=== PATIENT | male | born 1940 | race Caucasian/White ===

== ENCOUNTER 2017-05-11 08:18 | Emergency (ER) | payer MEDICARE, SELFPAY ==
[2017-05-11 08:43] VITALS: BP 120/82; PULSE 89; RESP 16; TEMP 36.8; O2SAT 97; BMI 24.3
--- NOTE | 2017-05-11 09:47 | HMH.EDURI ---
ED Disposition Clinical Impression: Influenza Disposition: Home, Self-Care Condition on Discharge: Good Instructions: DI for Acute Bronchitis Additional Instructions: fluids and see pcp for follow up Prescriptions: Oseltamivir Phosphate [Tamiflu 75mg Capsule] 75 mg PO BID #10 cap Referrals: Darren Vega MD [Primary Care Provider] - - Critical Care Critical Care Time: No Attestation: On 05/11/17, the high probability of a clinically significant, sudden or life threatening deterioration of the following system(s) required my full and direct attention, intervention and personal management. The time I documented below is in addition to time spent performing reported procedures but includes the following listed in this critical care notation. Medical Decision Making - Medical Records Medical records reviewed: Yes: I reviewed the patient's medical records. Vital Signs: 05/11/17 08:43 Temperature 98.2 F Temperature Source Oral Pulse Rate [Right Radial] 89 Respiratory Rate 16 Blood Pressure [Left Arm] 120/82 Blood Pressure Mean [Left Arm] 94 Blood Pressure Source [Left Arm] Automatic Cuff Blood Pressure Position [Left Arm] Sitting 02 Sat by Pulse Oximetry 97 Oxygen Delivery Method Room Air - Lab Data Lab results reviewed: Yes: I reviewed the patient's lab results. Lab Results 05/11/17 08:55: Influenza Type A Ag Negative, Influenza Type B Ag Negative - Sathya Inquiry Pt receiving controlled substance: No URI/Sore Throat HPI - General Chief Complaint: Upper Respiratory Infection Stated Complaint: Poss Flu Time Seen by Provider: 05/11/17 09:47 Mode of Arrival: Ambulatory Source of Information: Patient, Spouse, Medical Record Limitations: No Limitations Description of Symptoms (Recalled from ER Triage Doc. by RN): HEAD CONGESTION, A LITTLE COUGHING - History of Present Illness HPI Narrative: over the last day with uri sx and cough Complaint: cough Onset (ago): day(s) Severity: moderate Able to tolerate fluids by mouth: Yes Context: sick contacts - Related Data Previous Rx's Medication Instructions Recorded Oseltamivir Phosphate [Tamiflu 75 mg PO BID #10 cap 05/11/17 75mg Capsule] Allergies Allergy/AdvReac Type Severity Reaction Status Date / Time cetirizine [From ZYRTEC] Allergy Unknown Unverified 03/25/17 14:28 erythromycin base Allergy Unknown Unverified 03/25/17 14:28 Penicillins Allergy Unknown Unverified 03/25/17 14:28 BRYAN INHIBITORS Allergy Unknown Uncoded 03/25/17 14:28 LEATHER & OTHER WATCH BANDS Allergy Unknown Uncoded 03/25/17 14:28 [facility] History I have reviewed the patient's past medical history: Yes Medical History: Denies:: Cancer, Diabetes Mellitus Type 1, Diabetes Mellitus Type 2, Internal Pacemaker, MRSA Other Surgeries: No: Pacemaker Amputation: No Fractures: No - *Social History Smoking Status: Former smoker Tobacco Type: smokeless tobacco Alcohol Intake: never - Psychiatric History Expresses thoughts of harming self/others: None Suicide Plan Description: No Plan ROS Obtained: Yes All systems reviewed & no additional complaints - Constitutional Constitutional: Reports fever(s) - Eyes Eyes: Denies change in vision - ENT Ears, Nose, Mouth, and Throat: Reports sore throat - Cardiovascular Cardiovascular: Denies chest pain at rest - Respiratory Respiratory: Yes cough, No coughing up blood - Gastrointestinal Gastrointestingal: Reports: nausea - Musculoskeletal Musculoskeletal: Reports joint pain, Denies joint swelling - Integumentary/Breasts Skin/Breast: Denies rash - Neurologic Neurologic: Denies focal weakness, Denies seizure-like activity Physical Exam - General General appearance: alert, in no apparent distress - Head Head exam: normocephalic - Eye Eye exam: Present: PERRL, EOMI - ENT ENT exam: Present: mucous membranes dry - Neck Neck exam: Present: trachea midline - Res
--- NOTE | 2017-05-11 09:50 | ED_ITS ---
ED Disposition Clinical Impression: Influenza Disposition: Home, Self-Care Condition on Discharge: Good Instructions: DI for Acute Bronchitis Additional Instructions: fluids and see pcp for follow up Prescriptions: Oseltamivir Phosphate [Tamiflu 75mg Capsule] 75 mg PO BID #10 cap Referrals: Darren Vega MD [Primary Care Provider] - - Critical Care Critical Care Time: No Attestation: On 05/11/17, the high probability of a clinically significant, sudden or life threatening deterioration of the following system(s) required my full and direct attention, intervention and personal management. The time I documented below is in addition to time spent performing reported procedures but includes the following listed in this critical care notation. Medical Decision Making - Medical Records Medical records reviewed: Yes: I reviewed the patient's medical records. Vital Signs: 05/11/17 08:43 Temperature 98.2 F Temperature Source Oral Pulse Rate [Right Radial] 89 Respiratory Rate 16 Blood Pressure [Left Arm] 120/82 Blood Pressure Mean [Left Arm] 94 Blood Pressure Source [Left Arm] Automatic Cuff Blood Pressure Position [Left Arm] Sitting 02 Sat by Pulse Oximetry 97 Oxygen Delivery Method Room Air - Lab Data Lab results reviewed: Yes: I reviewed the patient's lab results. Lab Results 05/11/17 08:55: Influenza Type A Ag Negative, Influenza Type B Ag Negative - Sathya Inquiry Pt receiving controlled substance: No URI/Sore Throat HPI - General Chief Complaint: Upper Respiratory Infection Stated Complaint: Poss Flu Time Seen by Provider: 05/11/17 09:47 Mode of Arrival: Ambulatory Source of Information: Patient, Spouse, Medical Record Limitations: No Limitations Description of Symptoms (Recalled from ER Triage Doc. by RN): HEAD CONGESTION, A LITTLE COUGHING - History of Present Illness HPI Narrative: over the last day with uri sx and cough Complaint: cough Onset (ago): day(s) Severity: moderate Able to tolerate fluids by mouth: Yes Context: sick contacts - Related Data Previous Rx's Medication Instructions Recorded Oseltamivir Phosphate [Tamiflu 75 mg PO BID #10 cap 05/11/17 75mg Capsule] Allergies Allergy/AdvReac Type Severity Reaction Status Date / Time cetirizine [From ZYRTEC] Allergy Unknown Unverified 03/25/17 14:28 erythromycin base Allergy Unknown Unverified 03/25/17 14:28 Penicillins Allergy Unknown Unverified 03/25/17 14:28 BRYAN INHIBITORS Allergy Unknown Uncoded 03/25/17 14:28 LEATHER & OTHER WATCH BANDS Allergy Unknown Uncoded 03/25/17 14:28 [facility] History I have reviewed the patient's past medical history: Yes Medical History: Denies:: Cancer, Diabetes Mellitus Type 1, Diabetes Mellitus Type 2, Internal Pacemaker, MRSA Other Surgeries: No: Pacemaker Amputation: No Fractures: No - *Social History Smoking Status: Former smoker Tobacco Type: smokeless tobacco Alcohol Intake: never - Psychiatric History Expresses thoughts of harming self/others: None Suicide Plan Description: No Plan ROS Obtained: Yes All systems reviewed & no additional complaints - Constitutional Constitutional: Reports fever(s) - Eyes Eyes: Denies change in vision - ENT Ears, Nose, Mouth, and
[2017-05-11 09:54] VITALS: BP 120/82; PULSE 89; RESP 16; TEMP 36.8; O2SAT 97
== END 2017-05-11 10:04 | disposition home or self-care (01) ==
PROVIDERS: Emergency Provider Emergency Medicine; Family Provider Family Medicine; PCP Family Medicine
DX: J11.1 Influenza due to unidentified influenza virus with other respiratory manifestations (principal); I48.91 Unspecified atrial fibrillation; I10 Essential (primary) hypertension; J44.9 Chronic obstructive pulmonary disease, unspecified; Z88.0 Allergy status to penicillin; Z88.1 Allergy status to other antibiotic agents; Z88.8 Allergy status to other drugs, medicaments and biological substances; Z87.891 Personal history of nicotine dependence
CPT/HCPCS: 87275; 87276; 99282

== ENCOUNTER → 2017-08-01 10:02 | Outpatient (CLI) | payer MEDICARE, SELFPAY ==
[2017-08-01 10:33] LABS: Basophils % 0.3 % (0.1-2.0); Eosinophils # 0.1 K/mm3 (0.0-0.4); Eosinophils % 1.5 % (0.1-12.0); Hematocrit 40.6 % (42.0-52.0); Hemoglobin 13.4 g/dL (14.1-18.0); Lymphocytes # 1.3 K/mm3 (0.7-4.5); Lymphocytes % 14.7 K/mm3 (10-50); Mean Corpuscular HGB Conc 33.1 g/dL (31.8-35.4); Mean Corpuscular Hemoglobin 31.8 pg (27.0-31.2); Mean Corpuscular Volume 96.2 fl (80-94); Mean Platelet Volume 8.9 fl (7.4-10.4); Monocytes # 0.7 K/mm3 (0.1-1.0); Monocytes % 7.7 % (1.7-9.3); Neutrophils # 6.9 K/mm3 (1.8-7.8); Neutrophils % 75.8 % (37.0-80.0); Platelet Count 166 K/mm3 (142-424); Red Blood Count 4.22 M/mm3 (4.60-6.20); Red Cell Distribution Width 15.2 % (11.5-17.5)
[2017-08-01 11:17] LABS: Hemoglobin A1C 5.8 % (0.0-7.0)
[2017-08-01 12:35] LABS: Alanine Aminotransferase 16 U/L (12-78); Albumin/Globulin Ratio 1.2 (1.1-1.8); Alkaline Phosphatase 84 U/L (46-116); Aspartate Amino Transferase 18 U/L (15-37); Bilirubin,Total 1.3 mg/dL (0.2-1.0); Blood Urea Nitrogen 15 mg/dL (7-18); Calcium 9.5 mg/dL (8.5-10.1); Carbon Dioxide 36 mmol/L (21.0-32.0); Chloride 99 mmol/L (98-107); Chol/HDL Ratio 2.2 (1-3.5); Cholesterol 114 mg/dL (140-200); Creatinine,Serum 1.16 mg/dL (0.70-1.30); Estimated Glomerular Filt Rate 61 ml/min (>60); GFR (African American) 74 ML/MIN (>60); Globulin 3.4 gm/dl (1.3-3.2); Glucose 103 mg/dL (74-106); HDL Cholesterol 51 mg/dL (27-67); Iron 63 ug/dl (28-170); LDL Cholesterol 55 mg/dL (0-130); Magnesium 1.9 mg/dL (1.4-2.2); Prostate Specific Ag, Diagnost 0.52 ng/mL (0.0-4.0); Sodium 140 mmol/L (136-145); Thyroid Stimulating Hormone 1.05 uIU/ml (0.358-3.740); Total Protein,Serum 7.4 gm/dL (6.4-8.2); Triglycerides 40 mg/dL (30-200); VLDL Cholesterol 8 mg/dL (0-40)
[2017-08-02 20:14] LABS: Folate 13.3 ng/mL (>3.0); Vitamin B12 526 pg/mL (232-1245)
== END ==
PROVIDERS: Visit Provider Family Medicine
DX: R63.4 Abnormal weight loss (principal); I48.2 Chronic atrial fibrillation; I10 Essential (primary) hypertension; J44.9 Chronic obstructive pulmonary disease, unspecified; E78.5 Hyperlipidemia, unspecified; D50.9 Iron deficiency anemia, unspecified; Z79.899 Other long term (current) drug therapy
CPT/HCPCS: 36415; 80053; 80061; 82607; 82746; 83036; 83540; 83735; 84153; 84443; 85025

== ENCOUNTER → 2017-09-24 13:35 | Outpatient (CLI) | payer MEDICARE, SELFPAY ==
[2017-09-24 14:05] LABS: Blood Urea Nitrogen 70 mg/dL (7-18); Estimated Glomerular Filt Rate 20 ml/min (>60); GFR (African American) 24 ML/MIN (>60)
--- NOTE | 2017-09-24 14:33 | CT_ITS ---
CT chest wo con HISTORY: Follow-up pulmonary nodule/emphysema and fibrosis ITS.REASON: PULMONARY NODULE ORDERING PHYSICIAN: Darren Vega MD PATIENT AGE: 76 years COMPARISON: 03/07/2017 Technique: Axial images obtained. Sagittal and coronal reformatted images are also generated and reviewed. All CT scans at the facility use one or more dose reduction, viz: automated exposure control; ma/kV adjustment per patient size (including targeted exams where dose is matched to indication; i.e. head); or iterative reconstruction technique. FINDINGS: No mediastinal or hilar mass or adenopathy. There are coronary artery calcifications. Normal heart size. No evidence of pericardial effusion. Severe centrilobular emphysematous changes with scattered areas of pulmonary fibrosis mild bronchial thickening. Scattered calcified granulomas are present. The previously described 6 mm nodule in right upper lobe is not identified on today's exam. There are mild fibrotic changes in the right upper lobe anteriorly. This was likely due to an area of postinflammatory change. There is a 3 mm nodule right upper lobe posteriorly not readily apparent on the previous study. 4 mm noncalcified nodule present in the left lower lobe unchanged. Fibrotic changes are present in the lingula. Degenerative changes thoracic spine. There is bilateral gynecomastia. 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 IMPRESSION: 1. Centrilobular emphysema with scattered areas of pulmonary fibrosis. 2. Previously noted 6 mm nodule in the right upper lobe no longer apparent and was likely postinflammatory. There is a new 3 mm nodule right upper lobe superiorly which is nonspecific. Suggest 6-12 month follow-up to confirm stability 3. Cholelithiasis, celiac artery aneurysm
== END ==
PROVIDERS: Family Provider Family Medicine; PCP Family Medicine; Visit Provider Family Medicine
DX: R91.1 Solitary pulmonary nodule (principal)
CPT/HCPCS: 36415; 71250; 82565; 84520

== ENCOUNTER 2017-09-25 12:23 | Inpatient (IN) ==
--- NOTE | 2017-09-25 12:33 | Emergency Department Note ---
ED Disposition Clinical Impression: Hyponatremia, Hypokalemia, Fall Skin tear of left hand without complication Qualifiers: Encounter type: initial encounter Qualified Code(s): S61.412A - Laceration without foreign body of left hand, initial encounter Disposition: Admitted as Observation Condition on Discharge: Good Referrals: Darren Vega MD [Primary Care Provider] - - Critical Care Critical Care Time: No Attestation: On 09/25/17, the high probability of a clinically significant, sudden or life threatening deterioration of the following system(s) required my full and direct attention, intervention and personal management. The time I documented below is in addition to time spent performing reported procedures but includes the following listed in this critical care notation. Medical Decision Making - Sathya Inquiry Pt receiving controlled substance: No Vital Signs: 09/25/17 12:14 Pulse Rate [Right Radial] 90 Respiratory Rate 16 Blood Pressure [Right Arm] 122/69 Blood Pressure Mean [Right Arm] 86 Blood Pressure Source [Right Arm] Automatic Cuff Blood Pressure Position [Right Arm] Sitting 02 Sat by Pulse Oximetry 96 Oxygen Delivery Method Room Air - Lab Data Lab results reviewed: Yes: I reviewed the patient's lab results. Lab Results 09/25/17 12:45: WBC 14.5 H, RBC 4.28 L, Hgb 12.8 L, Hct 38.4 L, MCV 89.7, MCH 30.0, MCHC 33.4, RDW 14.5, Plt Count 226, MPV 10.2, Neut % (Auto) 81.1 H, Lymph % (Auto) 8.4 L, [place] % (Auto) 9.4 H, Eos % (Auto) 1.0, Baso % (Auto) 0.1, Neut # (Auto) 11.8 H, Lymph # (Auto) 1.2, [place] # (Auto) 1.4 H, Eos # (Auto) 0.2, Baso # (Auto) 0.0 09/25/17 12:45: Sodium 115 L, Potassium 2.8 L*, Chloride 71 L, Carbon Dioxide 39 H, Anion Gap 7.8, BUN 75 H, Creatinine 2.90 H, Estimated Creat Clear 22, Estimated GFR 21 L, Est GFR ( Amer) 26 L, Glucose 136 H, Calcium 9.6, Troponin I < 0.02 Result diagrams: 09/25/17 12:45 06/21/18 12:45 Orders (Tests/Meds): ED MEDICATIONS Generic Name Dose Route Start Last Admin Trade Name Freq PRN Reason Stop Dose Admin Lactated Ringer's 1,000 mls @ 75 mls/hr 09/25/17 13:45 09/25/17 13:42 Lactated Ringer's 1000 Ml Bag IV 10/25/17 13:44 75 mls/hr .[id number] MELYSSA Administration Discontinued Medications Generic Name Dose Route Start Last Admin Trade Name Freq PRN Reason Stop Dose Admin Tetanus/Reduced Diphtheria/Acell Pertussis 0.5 ml 09/25/17 12:37 09/25/17 13: 38 Adacel Tdap 0.5ml Syringe IM 09/25/17 12:38 0.5 ml .ONCE ONE Administration ORDERS Category Date Time Status CT abdomen pelvis wo con Stat Cat Scan 09/25/17 13:19 Stop Req XR chest portable Stat Exams 09/25/17 12:34 Taken 12-lead EKG Request [ECG Request by /Edis] Stat Y 09/25/17 12:34 Ordered - Physician Consults Physician Consulted: Dr. Todd senior research consultant for PCP Dr. Vega, who is on vacation Time: 13:50 Reason -: Admission Comment/Response: admit on KCl run Fall HPI - General Chief Complaint: Fall Stated Complaint: fall Time Seen by Provider: 09/25/17 12:30 Mode of Arrival: EMS Limitations: No Limitations Description of Symptoms (Recalled from ER Triage Doc. by RN): fall - History of Present Illness HPI Narrative: Has felt dehydrated and lightheaded for the last month since being placed on a new diuretic. Tends to be a little lightheaded when standing or walking baseline. Stood up today and fell, neg LOC, sustained skin tear to left hand, neg LOC, neg chest pain; hx Afib, EMS states a few runs of PVC's on route but not symptomatic. He denies headache, denies neck or back pain, no acute neurological sx today. No fever or vomiting. MD complaint: fall Onset (ago): minute(s) Fall from: walking Fall witnessed: no Place fall occurred: home Loss of consciousness: none Prolonged down time: no Symptoms prior to fall: lightheadedness Location of injury - extremities: Left: hand (skin tear, minor) Severity: mild Associated symptoms (after fall): other (lightheaded for several weeks) - Related Data Home Medications Medication Instructions Recorded Confirmed Allopurinol [Allopurinol 100mg 100 mg PO DAILY 09/25/17 09/25/17 tablet] Aspirin [Adult Aspirin] 81 mg PO DAILY 09/25/17 09/25/17 Atorvastatin Calcium [Atorvastatin 10 mg PO DAILY 09/25/17 09/25/17 10mg Tab] Carvedilol [Carvedilol 25mg Tab] 25 mg PO BID 09/25/17 09/25/17 Furosemide [Furosemide 40MG tAB] 40 mg PO BID 09/25/17 09/25/17 Oxybutynin Chloride [Oxybutynin 5 mg PO DAILY 09/25/17 09/25/17 Chloride ER] Rivaroxaban [Xarelto 15mg tablet] 15 mg PO DAILY 09/25/17 09/25/17 Spironolactone 25 mg PO BID 09/25/17 09/25/17 Tiotropium [place] [Spiriva 18 mcg INHALATION DAILY 09/25/17 09/25/17 18mcg/puff inhaler] Allergies Allergy/AdvReac Type Severity Reaction Status Date / Time cetirizine [From ZYRTEC] Allergy Unknown Verified 09/25/17 13:36 erythromycin base Allergy Unknown Verified 09/25/17 13:36 Penicillins Allergy Unknown Verified 09/25/17 13:36 BRYAN INHIBITORS Allergy Unknown Uncoded 03/25/17 14:28 LEATHER & OTHER WATCH BANDS Allergy Unknown Uncoded 03/25/17 14:28 [facility] History I have reviewed the patient's past medical history: Yes Medical History: Reports:: Arrhythmia Denies:: Cancer, Diabetes Mellitus Type 1, Diabetes Mellitus Type 2, Internal Pacemaker, MRSA Other Surgeries: No: Pacemaker Amputation: No Fractures: No - Social History Educational Level: Completed High School Smoking Status: Former smoker Tobacco Type: smokeless tobacco Alcohol Intake: never - Psychiatric History Expresses thoughts of harming self/others: None Suicide Plan Description: No Plan ROS Obtained: Yes All systems reviewed & no additional complaints Physical Exam - General General appearance: alert, in no apparent distress - Head Head exam: atraumatic, normocephalic, normal inspection - Eye Eye exam: Present: normal appearance, PERRL, EOMI - ENT ENT exam: Present: normal exam, normal oropharynx, mucous membranes moist, TM's normal bilaterally, normal external ear exam, other (atraumatic) - Neck Neck exam: Present: normal inspection, full ROM, trachea midline, other ( atraumatic). Absent: meningismus, lymphadenopathy - Chest Chest inspection: Present: normal inspection, symmetric chest wall rise. Absent : tenderness - Respiratory Respiratory exam: Present: normal lung sounds bilaterally. Absent: respiratory distress - Cardiovascular Cardiovascular exam: Present: regular rate, normal rhythm, other (NSR on monitor ; afebrile). Absent: JVD - Abdominal Exam Abdominal exam: Present: soft, normal bowel sounds. Absent: distention, tenderness, guarding - Extremities Exam Extremities exam: Present: full ROM, normal capillary refill, other (skin tear dorsal left hand, no active bleeding, no deformities or stepoffs; FROM, well perfused hand, brisk CR, full radial pulses B). Absent: calf tenderness - Back Exam Back exam: Present: normal inspection. Absent: tenderness - Neurological Exam Neurological exam: Present: alert, oriented X3, CN II-XII intact, normal gait, reflexes normal (speech clear and fluent, chip person equal, no tremor, GCS 4/6/5, nonfocal exam). Absent: motor sensory deficit - Psychiatric Psychiatric exam: Present: normal affect, normal mood - Skin Skin exam: Present: warm, dry, normal color - Lymphatic Lymphatic Findings: no adenopathy
[2017-09-25 12:53] LABS: Basophils % 0.1 % (0.1-2.0); Eosinophils # 0.2 K/mm3 (0.0-0.4); Hematocrit 38.4 % (42.0-52.0); Hemoglobin 12.8 g/dL (14.1-18.0); Lymphocytes # 1.2 K/mm3 (0.7-4.5); Lymphocytes % 8.4 K/mm3 (10-50); Mean Corpuscular HGB Conc 33.4 g/dL (31.8-35.4); Mean Corpuscular Volume 89.7 fl (80-94); Mean Platelet Volume 10.2 fl (7.4-10.4); Monocytes # 1.4 K/mm3 (0.1-1.0); Monocytes % 9.4 % (1.7-9.3); Neutrophils # 11.8 K/mm3 (1.8-7.8); Neutrophils % 81.1 % (37.0-80.0); Platelet Count 226 K/mm3 (142-424); Red Blood Count 4.28 M/mm3 (4.60-6.20); Red Cell Distribution Width 14.5 % (11.5-17.5); White Blood Count 14.5 K/mm3 (4.8-10.8)
[2017-09-25 13:04] LABS: Blood Urea Nitrogen 75 mg/dL (7-18); Calcium 9.6 mg/dL (8.5-10.1); Carbon Dioxide 39 mmol/L (21.0-32.0); Glucose 136 mg/dL (74-106)
[2017-09-25 13:14] LABS: Anion Gap 7.8 mEq/L (5-15)
[2017-09-25 13:15] LABS: Chloride 71 mmol/L (98-107)
[2017-09-25 13:16] LABS: Sodium 115 mmol/L (136-145)
[2017-09-25 13:17] LABS: Potassium 2.8 mmoL/L (3.5-5.1)
--- NOTE | 2017-09-25 14:30 | Pharmacy Consult Notes ---
[facility] Pharmacy VTE Monitoring - Patient Demographics Admission date: 09/25/17 Report Date: 09/25/17 Time: 14:29 Allergies/Adverse Reactions: Patient Allergies cetirizine [From ZYRTEC] Allergy (Unknown, Verified 09/25/17 13:36) erythromycin base Allergy (Unknown, Verified 09/25/17 13:36) Penicillins Allergy (Unknown, Verified 09/25/17 13:36) BRYAN INHIBITORS Allergy (Unknown, Uncoded 03/25/17 14:28) LEATHER & OTHER WATCH BANDS Allergy (Unknown, Uncoded 03/25/17 14:28) Height: 1.75 m Weight: 70.307 kg Patient Problems: Current Active Problems Hyponatremia (Acute) Hypokalemia (Acute) Skin tear of left hand without complication (Acute) Fall (Acute) - VTE Risk Labs: VTE Related Lab Results Hgb 12.8 g/dL (14.1-18.0) L 09/25/17 12:45 Hct 38.4 % (42.0-52.0) L 09/25/17 12:45 Plt Count 226 K/mm3 (142-424) 09/25/17 12:45 BUN 75 mg/dL (7-18) H 09/25/17 12:45 Creatinine 2.90 mg/dL (0.70-1.30) H 09/25/17 12:45 Estimated Creat Clear 22 mL/min (0-300) 09/25/17 12:45 Was VTE Risk Assessment Performed: Yes VTE Score: 1 VTE Risk Level: Very Low Risk - Prophylaxis VTE Prophylaxis Ordered?: Yes Types of VTE Prophylaxis: TEDS Knee High Location of Applied Device: Bilateral Lower Extremeties Pharmacologic Type: Other (XARELTO)
--- NOTE | 2017-09-25 14:45 | History & Physical Report ---
*Admission Date: 09/25/17 *Chief complaint: fall at home *History of present illness: Mr. Vaz is a 76yo male with a hx of HTN, HLP, afib, and CVA who fell at home today and presented to the ER for evaluation. His states he actually had a syncopal episode 2 nights ago and today was near syncopal. His actually caught him as he was falling. He has been on metolazone d/t increased leg edema and states he has felt dehydrated and lightheaded. His stopped the metolazone after the episode on Friday night. He did sustain a skin tear to the left hand today but had no other injuries. In the ambulance, he had a few runs of PVC's. He was found to have hypokalemia, hyponatremia, and renal insufficiency in the ER. He will be admitted for further evaluation and treatment. Of note, he did have a CT of the chest with contrast yesterday. [facility] History Medical History: Reports:: Anxiety, Arrhythmia, Atrial Fibrillation, Cancer ( prostate), Chronic Obstructive Pulmonary Disease (COPD), Cerebrovascular Accident, Hyperlipidemia, Hypertension Denies:: Diabetes Mellitus Type 1, Diabetes Mellitus Type 2, Internal Pacemaker, MRSA Other Surgeries: No: Pacemaker Amputation: No Fractures: No Comment: Heart cath, nasal septoplasty - *Social History Educational Level: Completed High School Smoking Status: Former smoker Tobacco Type: smokeless tobacco Alcohol Intake: never - Psychiatric History Expresses thoughts of harming self/others: None Suicide Plan Description: No Plan *Family Hx:: Coronary Artery Disease, Heart Attack, Hypertension Review of Systems - Constitutional Reports lack of energy, Reports weakness - Eyes Denies blurry vision, Denies double vision - ENT Denies nasal congestion, Denies sore throat - *Cardiovascular Denies chest pain - *Respiratory Reports shortness of breath with activity, Denies cough - *Gastrointestinal Denies abdominal pain, Denies loose stools, Denies nausea, Denies vomiting - *Genitourinary Denies difficulty urinating, Denies painful urination - *Musculoskeletal Denies joint pain, Denies muscle weakness - *Neurologic Reports dizziness, Reports weakness, Denies seizure-like activity Meds Home Medications Medication Instructions Recorded Confirmed Type Allopurinol [Allopurinol 100mg 100 mg PO DAILY 09/25/17 09/25/17 History tablet] Aspirin [Adult Aspirin] 81 mg PO DAILY 09/25/17 09/25/17 History Atorvastatin Calcium [Atorvastatin 10 mg PO HS 09/25/17 09/25/17 History 10mg Tab] Budesonide [Pulmicort Flexhaler] 1 puff IH BID 09/25/17 09/25/17 History Calcium Polycarbophil [FiberCon 2 tab PO DAILY 09/25/17 09/25/17 History 625mg tablet] Carvedilol [Carvedilol 25mg Tab] 25 mg PO BID 09/25/17 09/25/17 History Furosemide [Furosemide 40MG tAB] 40 mg PO BID 09/25/17 09/25/17 History Lactobacillus Acidophilus 1 each PO DAILY 09/25/17 09/25/17 History [Probiotic] Oxybutynin Chloride [Oxybutynin 5 mg PO DAILY 09/25/17 09/25/17 History Chloride ER] Rivaroxaban [Xarelto 15mg tablet] 15 mg PO DAILY 09/25/17 09/25/17 History Spironolactone 25 mg PO BID 09/25/17 09/25/17 History Tiotropium [place] [Spiriva 1 puff INHALATION DAILY 09/25/17 09/25/17 History 18mcg/puff inhaler] diazePAM [diazePAM 5mg Tablet] 5 mg PO BIDP PRN 09/25/17 09/25/17 History metOLazone [Metolazone 5mg Tab] 5 mg PO DAILY 09/25/17 09/25/17 History Allergies Allergy/AdvReac Type Severity Reaction Status Date / Time cetirizine [From [facility]] Allergy Unknown Verified 09/25/17 13:36 erythromycin base Allergy Unknown Verified 09/25/17 13:36 Penicillins Allergy Unknown Verified 09/25/17 13:36 BRYAN INHIBITORS Allergy Unknown Uncoded 03/25/17 14:28 LEATHER & OTHER WATCH BANDS Allergy Unknown Uncoded 03/25/17 14:28 Exam Vital signs and Labs for Last 24 Hours: Pulse Resp BP Pulse Ox 90 16 122/69 96 09/25/17 12:14 09/25/17 12:14 09/25/17 12:14 09/25/17 12:14 Laboratory Results - last 24 hr 09/25/17 12:45: WBC 14.5 H, RBC 4.28 L, Hgb 12.8 L, Hct 38.4 L, MCV 89.7, MCH 30.0, MCHC 33.4, RDW 14.5, Plt Count 226, MPV 10.2, Neut % (Auto) 81.1 H, Lymph % (Auto) 8.4 L, [place] % (Auto) 9.4 H, Eos % (Auto) 1.0, Baso % (Auto) 0.1, Neut # (Auto) 11.8 H, Lymph # (Auto) 1.2, [place] # (Auto) 1.4 H, Eos # (Auto) 0.2, Baso # (Auto) 0.0 09/25/17 12:45: Sodium 115 L, Potassium 2.8 L*, Chloride 71 L, Carbon Dioxide 39 H, Anion Gap 7.8, BUN 75 H, Creatinine 2.90 H, Estimated Creat Clear 22, Estimated GFR 21 L, Est GFR ( Amer) 26 L, Glucose 136 H, Calcium 9.6, Troponin I < 0.02 I & O for Last 24 hours: Intake & Output 09/23/17 09/24/17 09/25/17 09/26/17 11:59 11:59 11:59 11:59 Weight 155 lb - Constitutional no acute distress - *Routine HEENT Exam Head: Present: normocephalic, atraumatic Eye: Present: EOMI, PERRL ENT: Present: mucous membranes moist - *Routine Neck Exam Present: supple, full ROM - *Routine Respiratory Exam Present: CTA bilaterally - *Routine Cardiovascular Exam Present: RRR - *Routine Abdominal Exam Present: soft, normoactive bowel sounds. Absent: tenderness - *Routine Extremities Exam Absent: edema - *Routine Skin Exam Comments: skin tear and brusing on the right hand - *Routine Neurological Exam Present: alert, oriented X3, CN II-XII intact. Absent: sensory deficit, motor deficit H&P: Result - Labs Labs: - Impressions CXR - Stable chest, nothing definite acute Assessment and Plan (1) Fall Current visit: Yes Status: Acute Category: Medical Code(s): W19.XXXA - Unspecified fall, initial encounter (2) Hypokalemia Current visit: Yes Status: Acute Category: Medical Code(s): E87.6 - Hypokalemia (3) Hyponatremia Current visit: Yes Status: Acute Category: Medical Code(s): E87.1 - Hypo- osmolality and hyponatremia (4) Renal insufficiency Current visit: Yes Status: Acute Category: Medical Code(s): N28.9 - Disorder of kidney and ureter, unspecified - Assessment and plan all Dx Assessment and Plan for all problems:: Will continue to hydrate and will start on 20meq of potassium tid. Will recheck labs tomorrow. Some of his home meds have been restarted.
[2017-09-26 06:00] LABS: Anion Gap 4.7 mEq/L (5-15); Calcium 8.9 mg/dL (8.5-10.1)
[2017-09-26 06:01] LABS: Basophils % 0.1 % (0.1-2.0); Eosinophils # 0.1 K/mm3 (0.0-0.4); Eosinophils % 0.6 % (0.1-12.0); Hematocrit 34.9 % (42.0-52.0); Hemoglobin 11.6 g/dL (14.1-18.0); Lymphocytes # 1.2 K/mm3 (0.7-4.5); Lymphocytes % 9.5 K/mm3 (10-50); Mean Corpuscular HGB Conc 33.3 g/dL (31.8-35.4); Mean Corpuscular Hemoglobin 29.9 pg (27.0-31.2); Mean Corpuscular Volume 89.8 fl (80-94); Mean Platelet Volume 9.7 fl (7.4-10.4); Monocytes # 1.1 K/mm3 (0.1-1.0); Monocytes % 8.8 % (1.7-9.3); Neutrophils # 9.8 K/mm3 (1.8-7.8); Neutrophils % 80.9 % (37.0-80.0); Platelet Count 190 K/mm3 (142-424); Red Blood Count 3.89 M/mm3 (4.60-6.20); Red Cell Distribution Width 14.5 % (11.5-17.5); White Blood Count 12.1 K/mm3 (4.8-10.8)
[2017-09-26 06:10] LABS: Potassium 2.7 mmoL/L (3.5-5.1)
--- NOTE | 2017-09-26 08:16 | Progress Note ---
Internal Medicine - PN: Subj *Date: 09/26/17 *Time: 08:13 Interval history: Patient states he is feeling better this morning. According to his nurse he did have a near syncopal episode during the night. The patient does not remember this. He denies any pain and did eat this morning. He slept last night. Exam Vital signs and Labs for Last 24 Hours: Temp Pulse Resp BP Pulse Ox 98.0 F 55 L 18 111/48 93 L 09/26/17 07:40 09/26/17 07:40 09/26/17 07:40 09/26/17 07:40 09/26/17 07:40 Laboratory Results - last 24 hr 09/25/17 12:45: WBC 14.5 H, RBC 4.28 L, Hgb 12.8 L, Hct 38.4 L, MCV 89.7, MCH 30.0, MCHC 33.4, RDW 14.5, Plt Count 226, MPV 10.2, Neut % (Auto) 81.1 H, Lymph % (Auto) 8.4 L, [place] % (Auto) 9.4 H, Eos % (Auto) 1.0, Baso % (Auto) 0.1, Neut # (Auto) 11.8 H, Lymph # (Auto) 1.2, [place] # (Auto) 1.4 H, Eos # (Auto) 0.2, Baso # (Auto) 0.0 09/25/17 12:45: Sodium 115 L, Potassium 2.8 L*, Chloride 71 L, Carbon Dioxide 39 H, Anion Gap 7.8, BUN 75 H, Creatinine 2.90 H, Estimated Creat Clear 22, Estimated GFR 21 L, Est GFR ( Amer) 26 L, Glucose 136 H, Calcium 9.6, Troponin I < 0.02 09/25/17 23:11: POC Glucose 147 H 09/26/17 05:20: WBC 12.1 H, RBC 3.89 L, Hgb 11.6 L, Hct 34.9 L, MCV 89.8, MCH 29.9, MCHC 33.3, RDW 14.5, Plt Count 190, MPV 9.7, Neut % (Auto) 80.9 H, Lymph % (Auto) 9.5 L, [place] % (Auto) 8.8, Eos % (Auto) 0.6, Baso % (Auto) 0.1, Neut # ( Auto) 9.8 H, Lymph # (Auto) 1.2, Ellis # (Auto) 1.1 H, Eos # (Auto) 0.1, Baso # ( Auto) 0.0 09/26/17 05:20: Sodium 119 L, Potassium 2.7 L*, Chloride 77 L, Carbon Dioxide 40 H, Anion Gap 4.7 L, BUN 67 H, Creatinine 2.47 H, Estimated Creat Clear 26, Estimated GFR 26 L, Est GFR ( Amer) 31 L, Glucose 126 H, Calcium 8.9, Magnesium 2.2 I & O for Last 24 hours: Intake & Output 09/23/17 09/24/17 09/25/17 09/26/17 11:59 11:59 11:59 11:59 Intake Total 2598 / 2598 Output Total 800 / 800 Balance 1798 / 1798 Weight 155 lb - Constitutional no acute distress - *Routine Respiratory Exam Present: CTA bilaterally - *Routine Cardiovascular Exam Present: irregularly irregular (controlled rate) - *Routine Abdominal Exam Present: soft, normoactive bowel sounds. Absent: tenderness - *Routine Extremities Exam Absent: edema Comments: bruising on the right hand and a bandage in place on the left hand Assessment and Plan (1) Fall Current visit: Yes Status: Acute Category: Medical Code(s): W19.XXXA - Unspecified fall, initial encounter (2) Hypokalemia Current visit: Yes Status: Acute Category: Medical Code(s): E87.6 - Hypokalemia (3) Hyponatremia Current visit: Yes Status: Acute Category: Medical Code(s): E87.1 - Hypo- osmolality and hyponatremia (4) Renal insufficiency Current visit: Yes Status: Acute Category: Medical Code(s): N28.9 - Disorder of kidney and ureter, unspecified - Assessment and plan all Dx Assessment and Plan for all problems:: The patient has been started on IV fluids with potassium and has been given a run of potassium. We will continue oral potassium as well. We will continue to monitor labs. Will also get a urinalysis as patient's white blood cell count is slightly elevated.
[2017-09-26 15:04] LABS: Anion Gap 4.1 mEq/L (5-15); Calcium 8.8 mg/dL (8.5-10.1); Potassium 3.1 mmoL/L (3.5-5.1)
[2017-09-27 07:27] LABS: Eosinophils % 0.3 % (0.1-12.0); Hematocrit 31.3 % (42.0-52.0); Hemoglobin 10.3 g/dL (14.1-18.0); Lymphocytes # 0.7 K/mm3 (0.7-4.5); Lymphocytes % 4.9 K/mm3 (10-50); Mean Corpuscular HGB Conc 32.9 g/dL (31.8-35.4); Mean Corpuscular Hemoglobin 30.2 pg (27.0-31.2); Mean Corpuscular Volume 91.8 fl (80-94); Mean Platelet Volume 9.3 fl (7.4-10.4); Monocytes # 0.8 K/mm3 (0.1-1.0); Monocytes % 5.9 % (1.7-9.3); Neutrophils # 12.4 K/mm3 (1.8-7.8); Neutrophils % 88.8 % (37.0-80.0); Platelet Count 172 K/mm3 (142-424); Red Blood Count 3.41 M/mm3 (4.60-6.20); Red Cell Distribution Width 14.6 % (11.5-17.5)
[2017-09-27 07:36] LABS: Albumin Level 3.2 gm/dL (3.4-5.0); Albumin/Globulin Ratio 0.9 (1.1-1.8); Anion Gap 5.6 mEq/L (5-15); Bilirubin,Total 1.7 mg/dL (0.2-1.0); Calcium 8.9 mg/dL (8.5-10.1); Globulin 3.4 gm/dl (1.3-3.2); Potassium 3.6 mmoL/L (3.5-5.1); Total Protein,Serum 6.6 gm/dL (6.4-8.2)
[2017-09-27 09:13] LABS: Lymphocytes % 8 % (10-50); Monocytes % 3 % (2-9); Neutrophils % 88 % (42-76); Total Cells Counted 100
--- NOTE | 2017-09-27 12:01 | Progress Note ---
Internal Medicine - PN: Subj *Date: 09/27/17 *Time: 11:58 Interval history: He is feeling better and his blood chemistries are normalizing. His CT scan was obtained but not yet read. Adrenal insufficiency is suspected. Exam Vital signs and Labs for Last 24 Hours: Temp Pulse Resp BP Pulse Ox 97.9 F 67 20 125/61 94 L 09/27/17 08:00 09/27/17 08:00 09/27/17 08:00 09/27/17 09:52 09/27/17 08:00 Laboratory Results - last 24 hr 09/26/17 13:57: Sodium 119 L, Potassium 3.1 L, Chloride 78 L, Carbon Dioxide 40 H, Anion Gap 4.1 L, BUN 63 H, Creatinine 2.11 H, Estimated Creat Clear 30, Estimated GFR 31 L, Est GFR ( Amer) 37 L, Glucose 151 H, Calcium 8.8 09/27/17 06:12: WBC 14.0 H, RBC 3.41 L, Hgb 10.3 L, Hct 31.3 L, MCV 91.8, MCH 30.2, MCHC 32.9, RDW 14.6, Plt Count 172, MPV 9.3, Neut % (Auto) 88.8 H, Lymph % (Auto) 4.9 L, [place] % (Auto) 5.9, Eos % (Auto) 0.3, Baso % (Auto) 0.0 L, Neut # (Auto) 12.4 H, Lymph # (Auto) 0.7, [place] # (Auto) 0.8, Eos # (Auto) 0.0, Baso # (Auto) 0.0, Total Counted 100, Neutrophils % (Manual) 88 H, Lymphocytes % ( Manual) 8 L, Atypical Lymphs % 1.0, Monocytes % (Manual) 3, Platelet Estimate Normal 09/27/17 06:12: Sodium 123 L, Potassium 3.6, Chloride 84 L, Carbon Dioxide 37 H , Anion Gap 5.6, BUN 52 H, Creatinine 1.70 H, Estimated Creat Clear 37, Estimated GFR 39 L, Est GFR ( Amer) 48 L D, Glucose 154 H, Calcium 8.9, Total Bilirubin 1.7 H, AST 24, ALT 19, Alkaline Phosphatase 71, Total Protein 6.6, Albumin 3.2 L, Globulin 3.4 H, Albumin/Globulin Ratio 0.9 L Laboratory Tests 09/25/17 09/25/17 09/26/17 12:45 12:45 05:20 WBC 14.5 H 12.1 H Hgb 12.8 L 11.6 L Sodium 115 L Potassium 2.8 L* 09/26/17 09/26/17 09/27/17 05:20 13:57 06:12 WBC 14.0 H Hgb 10.3 L Sodium 119 L 119 L Potassium 2.7 L* 3.1 L 09/27/17 06:12 WBC Hgb Sodium 123 L Potassium 3.6 I & O for Last 24 hours: Intake & Output 09/24/17 09/25/17 09/26/17 09/27/17 11:59 11:59 11:59 11:59 Intake Total 2598 / 2598 615 / 615 Output Total 900 / 900 760 / 760 Balance 1698 / 1698 -145 / -145 Weight 155 lb - *Routine Respiratory Exam Present: CTA bilaterally - *Routine Cardiovascular Exam Present: irregular rhythm - *Routine Extremities Exam Comments: Left ankle hematoma. Assessment and Plan (1) Fall Current visit: Yes Status: Acute Category: Medical Code(s): W19.XXXA - Unspecified fall, initial encounter (2) Hypokalemia Current visit: Yes Status: Acute Category: Medical Code(s): E87.6 - Hypokalemia (3) Hyponatremia Current visit: Yes Status: Acute Category: Medical Code(s): E87.1 - Hypo- osmolality and hyponatremia (4) Renal insufficiency Current visit: Yes Status: Acute Category: Medical Code(s): N28.9 - Disorder of kidney and ureter, unspecified (5) Adrenal insufficiency Current visit: Yes Status: Acute Category: Medical Code(s): E27.40 - Unspecified adrenocortical insufficiency - Assessment and plan all Dx Assessment and Plan for all problems:: Continue present regimen. Recheck labs in morning.
--- NOTE | 2017-09-28 08:16 | Progress Note ---
Internal Medicine - PN: Subj *Date: 09/28/17 *Time: 08:14 Interval history: He feels much better. He rested well. We need a physical therapy consult in the morning. He will be soon ready for discharge. Exam Vital signs and Labs for Last 24 Hours: Temp Pulse Resp BP Pulse Ox 97.0 F L 70 16 78/40 97 09/28/17 07:46 09/28/17 07:46 09/28/17 07:46 09/28/17 07:46 09/28/17 07:46 Laboratory Results - last 24 hr 09/27/17 06:12: Total Counted 100, Neutrophils % (Manual) 88 H, Lymphocytes % ( Manual) 8 L, Atypical Lymphs % 1.0, Monocytes % (Manual) 3, Platelet Estimate Normal Laboratory Tests 09/25/17 09/26/17 09/26/17 12:45 05:20 13:57 Potassium 2.8 L* 2.7 L* 3.1 L 09/27/17 06:12 Potassium 3.6 I & O for Last 24 hours: Intake & Output 09/25/17 09/26/17 09/27/17 09/28/17 11:59 11:59 11:59 11:59 Intake Total 2598 / 2598 615 / 615 3115 / 3115 Output Total 900 / 900 760 / 760 1300 / 1300 Balance 1698 / 1698 -145 / -145 1815 / 1815 Weight 155 lb - Constitutional no acute distress - *Routine Respiratory Exam Present: CTA bilaterally, diminished air movement - *Routine Cardiovascular Exam Present: irregular rhythm - *Routine Extremities Exam Comments: Left ankle hematoma still prominent Assessment and Plan (1) Fall Current visit: Yes Status: Acute Category: Medical Code(s): W19.XXXA - Unspecified fall, initial encounter (2) Hypokalemia Current visit: Yes Status: Acute Category: Medical Code(s): E87.6 - Hypokalemia (3) Hyponatremia Current visit: Yes Status: Acute Category: Medical Code(s): E87.1 - Hypo- osmolality and hyponatremia (4) Renal insufficiency Current visit: Yes Status: Acute Category: Medical Code(s): N28.9 - Disorder of kidney and ureter, unspecified (5) Adrenal insufficiency Current visit: Yes Status: Acute Category: Medical Code(s): E27.40 - Unspecified adrenocortical insufficiency - Assessment and plan all Dx Assessment and Plan for all problems:: He is doing well. PT consult in the morning.
[2017-09-28 08:57] LABS: Eosinophils # 0.1 K/mm3 (0.0-0.4); Eosinophils % 0.7 % (0.1-12.0); Hemoglobin 10.1 g/dL (14.1-18.0); Lymphocytes # 1.2 K/mm3 (0.7-4.5); Lymphocytes % 7.6 K/mm3 (10-50); Mean Corpuscular HGB Conc 38.8 g/dL (31.8-35.4); Mean Corpuscular Hemoglobin 35.8 pg (27.0-31.2); Mean Corpuscular Volume 92.1 fl (80-94); Mean Platelet Volume 8.9 fl (7.4-10.4); Monocytes % 6.5 % (1.7-9.3); Neutrophils % 85.1 % (37.0-80.0); Platelet Count 163 K/mm3 (142-424); Red Blood Count 2.82 M/mm3 (4.60-6.20); Red Cell Distribution Width 14.6 % (11.5-17.5); White Blood Count 15.3 K/mm3 (4.8-10.8)
[2017-09-28 08:59] LABS: Anion Gap 9.3 mEq/L (5-15); Calcium 8.6 mg/dL (8.5-10.1); Potassium 4.3 mmoL/L (3.5-5.1)
[2017-09-28 12:17] LABS: Lymphocytes % 1 % (10-50); Monocytes % 7 % (2-9); Neutrophils % 91 % (42-76); RBC Morphology Normal; Total Cells Counted 100
--- NOTE | 2017-09-29 08:16 | Progress Note ---
Internal Medicine - PN: Subj *Date: 09/29/17 *Time: 08:13 Interval history: States he is doing fine. He is eating better. He slept some during the night. He ambulates in the room and sits in the chair. Voiding without difficulty. Exam Vital signs and Labs for Last 24 Hours: Temp Pulse Resp BP Pulse Ox 98.1 F 86 18 111/44 99 09/29/17 07:41 09/29/17 07:41 09/29/17 07:41 09/29/17 07:41 09/29/17 07:41 Laboratory Results - last 24 hr 09/28/17 08:36: WBC 15.3 H, RBC 2.82 L, Hgb 10.1 L, Hct 26.0 L, MCV 92.1, MCH 35.8 H, MCHC 38.8 H, RDW 14.6, Plt Count 163, MPV 8.9, Neut % (Auto) 85.1 H, Lymph % (Auto) 7.6 L, [place] % (Auto) 6.5, Eos % (Auto) 0.7, Baso % (Auto) 0.0 L, Neut # (Auto) 13.0 H, Lymph # (Auto) 1.2, [place] # (Auto) 1.0, Eos # (Auto) 0.1, Baso # (Auto) 0.0, Total Counted 100, Neutrophils % (Manual) 91 H, Lymphocytes % (Manual) 1 L, Atypical Lymphs % 1.0, Monocytes % (Manual) 7, Platelet Estimate Normal, RBC Morphology Normal 09/28/17 08:36: Sodium 126 L, Potassium 4.3, Chloride 87 L, Carbon Dioxide 34 H , Anion Gap 9.3, BUN 43 H, Creatinine 1.33 H D, Estimated Creat Clear 48, Estimated GFR 52 L, Est GFR ( Amer) 63 D, Glucose 116 H, Calcium 8.6 I & O for Last 24 hours: Intake & Output 09/26/17 09/27/17 09/28/17 09/29/17 11:59 11:59 11:59 11:59 Intake Total 2598 / 2598 615 / 615 3115 / 3115 2425 / 2425 Output Total 900 / 900 760 / 760 1300 / 1300 325 / 325 Balance 1698 / 1698 -145 / -145 1815 / 1815 2100 / 2100 Weight 155 lb - Constitutional no acute distress Comments: Sitting on the bedside. - *Routine Respiratory Exam Present: CTA bilaterally (Anteriorly and posteriorly) - *Routine Cardiovascular Exam Present: irregularly irregular - *Routine Abdominal Exam Present: soft, normoactive bowel sounds. Absent: tenderness - *Routine Extremities Exam Present: edema (Left lower extremity.) - *Routine Neurological Exam Present: alert, oriented X3 Assessment and Plan (1) Fall Current visit: Yes Status: Acute Category: Medical Code(s): W19.XXXA - Unspecified fall, initial encounter (2) Hypokalemia Current visit: Yes Status: Acute Category: Medical Code(s): E87.6 - Hypokalemia (3) Hyponatremia Current visit: Yes Status: Acute Category: Medical Code(s): E87.1 - Hypo- osmolality and hyponatremia (4) Renal insufficiency Current visit: Yes Status: Acute Category: Medical Code(s): N28.9 - Disorder of kidney and ureter, unspecified (5) Adrenal insufficiency Current visit: Yes Status: Acute Category: Medical Code(s): E27.40 - Unspecified adrenocortical insufficiency - Assessment and plan all Dx Assessment and Plan for all problems:: Continue current treatment.
--- NOTE | 2017-09-29 16:01 | Discharge Summary ---
General - General Admission date:: 09/25/17 Discharge date: 09/29/17 HPI HPI: Mr. Vaz is a 76yo male with a hx of HTN, HLP, afib, and CVA who fell at home today and presented to the ER for evaluation. His states he actually had a syncopal episode 2 nights ago and today was near syncopal. His actually caught him as he was falling. He has been on metolazone d/t increased leg edema and states he has felt dehydrated and lightheaded. His stopped the metolazone after the episode on Friday night. He did sustain a skin tear to the left hand today but had no other injuries. In the ambulance, he had a few runs of PVC's. He was found to have hypokalemia, hyponatremia, and renal insufficiency in the ER. He will be admitted for further evaluation and treatment. Of note, he did have a CT of the chest with contrast yesterday. Hospital Course Hospital Course: The patient was started on IVF's and potassium. Most of his home medications were restarted. The patient had another near syncopal episode the first night of admission. It was somewhat seizure-like, which could have been the case with electrolyte imbalance. Dr. Todd felt adrenal insufficiency could be part of the problem, therefore a CT of the adrenals was ordered and he was given some steroids. His electrolytes improved. There was some enlargement of both adrenal glands, cholelithiasis, a right inguinal hernia, and some constipation seen on abdominal CT. His potassium normalized and his sodium improved. His WBC was elevated. He was stable to be discharged home and was covered with Bactrim DS twice daily d/t elevated WBC. He will continue on 10 mg of prednisone a day and potassium 20 mEq twice a day. He will follow-up in the office [facility] this week. Objective Vital signs: Temp Pulse Resp BP Pulse Ox 98.1 F 86 18 111/44 99 09/29/17 07:41 09/29/17 07:41 09/29/17 07:41 09/29/17 07:41 09/29/17 07:41 Narrative: - Constitutional no acute distress - *Routine HEENT Exam Head: Present: normocephalic, atraumatic Eye: Present: EOMI, PERRL ENT: Present: mucous membranes moist - *Routine Neck Exam Present: supple, full ROM - *Routine Respiratory Exam Present: CTA bilaterally - *Routine Cardiovascular Exam Present: RRR - *Routine Abdominal Exam Present: soft, normoactive bowel sounds. Absent: tenderness - *Routine Extremities Exam Absent: edema - *Routine Skin Exam Comments: skin tear and brusing on the right hand - *Routine Neurological Exam Present: alert, oriented X3, CN II-XII intact. Absent: sensory deficit, motor deficit DS: Diagnosis - Discharge Diagnosis (1) Fall Status: Acute (2) Hypokalemia Status: Acute (3) Hyponatremia Status: Acute (4) Renal insufficiency Status: Acute (5) Adrenal insufficiency Status: Acute Discharge Plan - Patient Discharge Instructions ACTIVITY: Limited activity Additional Instructions: Follow-up this week in the office of [facility]. Patient Instructions: DI for Hypokalemia, DI for Hyponatremia - Follow up Plan Follow up with: Darren Vega MD [Primary Care Provider] - Disposition: Home, Self-Jail Medications: Home Medications Medication Instructions Recorded Confirmed Type Allopurinol [Allopurinol 100mg 100 mg PO DAILY 09/25/17 09/25/17 History tablet] Aspirin [Adult Aspirin] 81 mg PO DAILY 09/25/17 09/25/17 History Atorvastatin Calcium [Atorvastatin 10 mg PO HS 09/25/17 09/25/17 History 10mg Tab] Budesonide [Pulmicort Flexhaler] 1 puff IH BID 09/25/17 09/25/17 History Calcium Polycarbophil [FiberCon 2 tab PO DAILY 09/25/17 09/25/17 History 625mg tablet] Furosemide [Furosemide 40MG tAB] 40 mg PO BID 09/25/17 09/25/17 History Lactobacillus Acidophilus 1 each PO DAILY 09/25/17 09/25/17 History [Probiotic] Oxybutynin Chloride [Oxybutynin 5 mg PO DAILY 09/25/17 09/25/17 History Chloride ER] Rivaroxaban [Xarelto 15mg tablet] 15 mg PO DAILY 09/25/17 09/25/17 History Spironolactone 25 mg PO BID 09/25/17 09/25/17 History Tiotropium [place] [Spiriva 1 puff INHALATION DAILY 09/25/17 09/25/17 History 18mcg/puff inhaler] diazePAM [diazePAM 5mg Tablet] 5 mg PO BIDP PRN 09/25/17 09/25/17 History Prescriptions/Medication Reconciliation: New Carvedilol [Coreg 6.25mg Tablet] 6.25 mg PO BID #60 tab Potassium Chloride [Klor-con 20 mEq tablet] 20 meq PO BID #60 tab Calcium Polycarbophil [FiberCon 625mg tablet] 1,250 mg PO DAILY tablet predniSONE [Deltasone 10mg tablet] 10 mg PO DAILY #30 tab Sulfamethoxazole/Trimethoprim [Bactrim DS tablet] 1 each PO BID #14 tab Continue Rivaroxaban [Xarelto 15mg tablet] 15 mg PO DAILY Oxybutynin Chloride [Oxybutynin Chloride ER] 5 mg PO DAILY Furosemide [Furosemide 40MG tAB] 40 mg PO BID Atorvastatin Calcium [Atorvastatin 10mg Tab] 10 mg PO HS Aspirin [Adult Aspirin] 81 mg PO DAILY Allopurinol [Allopurinol 100mg tablet] 100 mg PO DAILY Lactobacillus Acidophilus [Probiotic] 1 each PO DAILY Budesonide [Pulmicort Flexhaler] 1 puff IH BID diazePAM [diazePAM 5mg Tablet] 5 mg PO BIDP PRN PRN Reason: Anxiety Tiotropium [place] [Spiriva 18mcg/puff inhaler] 1 puff INHALATION DAILY Spironolactone 25 mg PO BID Calcium Polycarbophil [FiberCon 625mg tablet] 2 tab PO DAILY Discontinued Carvedilol [Carvedilol 25mg Tab] 25 mg PO BID metOLazone [Metolazone 5mg Tab] 5 mg PO DAILY
== END 2017-09-29 11:00 | disposition home or self-care (01) ==
LOC: ER 12:23 → 2ND 13:58
PROVIDERS: ADMIT Family Medicine; ATTEND Family Medicine

== ENCOUNTER → 2017-10-14 09:38 | Outpatient (CLI) | payer MEDICARE, SELFPAY ==
[2017-10-14 10:55] LABS: Anion Gap 8.5 mEq/L (5-15); Blood Urea Nitrogen 21 mg/dL (7-18); Calcium 9.2 mg/dL (8.5-10.1); Carbon Dioxide 32 mmol/L (21.0-32.0); Chloride 96 mmol/L (98-107); Creatinine,Serum 1.52 mg/dL (0.70-1.30); Estimated Glomerular Filt Rate 45 ml/min (>60); GFR (African American) 54 ML/MIN (>60); Glucose 100 mg/dL (74-106); Potassium 4.5 mmoL/L (3.5-5.1); Sodium 132 mmol/L (136-145)
[2017-10-14 12:29] LABS: Basophils % 0.5 % (0.1-2.0); Eosinophils # 0.1 K/mm3 (0.0-0.4); Eosinophils % 1.3 % (0.1-12.0); Hematocrit 34.3 % (42.0-52.0); Hemoglobin 10.7 g/dL (14.1-18.0); Lymphocytes # 1.1 K/mm3 (0.7-4.5); Lymphocytes % 15.7 K/mm3 (10-50); Mean Corpuscular HGB Conc 31.2 g/dL (31.8-35.4); Mean Corpuscular Hemoglobin 30.7 pg (27.0-31.2); Mean Corpuscular Volume 98.4 fl (80-94); Mean Platelet Volume 7.8 fl (7.4-10.4); Monocytes # 0.4 K/mm3 (0.1-1.0); Monocytes % 6.6 % (1.7-9.3); Neutrophils # 5.1 K/mm3 (1.8-7.8); Platelet Count 205 K/mm3 (142-424); Red Blood Count 3.48 M/mm3 (4.60-6.20); Red Cell Distribution Width 15.5 % (11.5-17.5); White Blood Count 6.8 K/mm3 (4.8-10.8)
== END ==
PROVIDERS: Visit Provider Family Medicine
DX: N28.9 Disorder of kidney and ureter, unspecified (principal); E87.8 Other disorders of electrolyte and fluid balance, not elsewhere classified
CPT/HCPCS: 36415; 80048; 85025

== ENCOUNTER → 2018-03-16 12:01 | Outpatient (CLI) | payer MEDICARE, SELFPAY ==
[2018-03-16 12:07] LABS: Adenovirus F 40/41, stool Not Detected (NotDetected); Astrovirus Not Detected (NotDetected); Campylobacter Not Detected (NotDetected); Cryptosporidium Not Detected (NotDetected); Cyclospora Cayetanesis Not Detected (NotDetected); Entamoeba histolytica Not Detected (NotDetected); Enteroaggregative E coli Not Detected (NotDetected); Enteropathogenic E coli Not Detected (NotDetected); Enterotoxigenic E coli Not Detected (NotDetected); Giardia lamblia Not Detected (NotDetected); Norovirus Not Detected (NotDetected); Plesimonas Shigalloides, PCR Not Detected (NotDetected); Rotavirus A Not Detected (NotDetected); Salmonella, PCR Not Detected (NotDetected); Sapovirus Not Detected (NotDetected); Shiga-like toxin E coli Not Detected (NotDetected); Shigella Enterovasive E coli Not Detected (NotDetected); Vibrio Cholerae Not Detected (NotDetected); Vibrio, PCR Not Detected (NotDetected); Yersinia Entercolitica, PCR Not Detected (NotDetected)
[2018-03-16 15:26] LABS: Clostridium Difficile A/B, PCR Detected (NotDetected)
== END ==
PROVIDERS: Visit Provider Family Medicine
DX: R19.7 Diarrhea, unspecified (principal)
CPT/HCPCS: 87507

== ENCOUNTER → 2018-07-30 12:56 | Outpatient (CLI) | payer MEDICARE, SELFPAY ==
--- NOTE | 2018-07-30 13:00 | CT_ITS ---
CT chest wo con HISTORY: Follow-up lung nodule, emphysema, pulmonary fibrosis ITS.REASON: LUNG NODULE ORDERING PHYSICIAN: Darren Vega MD PATIENT AGE: 77 years COMPARISON: 09/24/2017 Technique: Axial images obtained. Sagittal, and coronal reformatted images are also generated and reviewed. All CT scans at the facility use one or more dose reduction, viz: automated exposure control, ma/kV adjustment per patient size (including targeted exams where dose is matched to indication, i.e. head), or iterative reconstruction technique. FINDINGS: Atherosclerotic calcification involves the aorta and coronary arteries. Normal heart size. Minimal pericardial thickening anteriorly unchanged. No mediastinal or hilar mass or adenopathy. Diffuse centrilobular emphysema with scattered areas of parenchymal fibrosis/scarring.. Mild diffuse bronchial thickening. No change in the 3 mm nodule in the right upper lobe posteriorly. No new nodules apparent. There is a lobular soft tissue density within the left lateral aspect of the trachea distally just proximal to the hazel. Measures approximately 17 x 12 mm and may have a stalk proximally. No infiltrates or effusions. No lobar consolidation or collapse. There is bilateral gynecomastia. Upper abdominal images show cholelithiasis. No acute bony findings. IMPRESSION: 1. There is a new lobular polypoid soft tissue lesion within the distal aspect of the trachea on the left just proximal to the hazel measuring 1.7 x 1.2 cm. This may represent a polyp and appears to have a systolic. Neoplasm or a well-circumscribed lobular area of mucous region is an additional consideration. Would recommend repeating the exam without and with contrast after exuberant coughing to ensure the patient clears his airway. If this persists, bronchoscopy would be needed for further evaluation. 2. Centrilobular emphysema with coronary artery disease. 3. No change 3 mm right upper lobe nodule.
== END ==
PROVIDERS: PCP Family Medicine; Visit Provider Family Medicine
DX: R91.1 Solitary pulmonary nodule (principal)
CPT/HCPCS: 71250

== ENCOUNTER → 2018-12-29 09:41 | Outpatient (CLI) | payer MEDICARE, SELFPAY ==
[2018-12-29 10:27] LABS: Blood Urea Nitrogen 26 mg/dL (7-18); Estimated Glomerular Filt Rate 49 ml/min (>60); GFR (African American) 59 ML/MIN (>60)
== END ==
PROVIDERS: Visit Provider Family Medicine
DX: Z01.818 Encounter for other preprocedural examination (principal)
CPT/HCPCS: 36415; 82565; 84520

== ENCOUNTER → 2018-12-30 10:13 | Outpatient (CLI) | payer MEDICARE, SELFPAY ==
--- NOTE | 2018-12-30 10:17 | CT_ITS ---
PROCEDURE: CT CHEST WO/W CON CLINCAL INDICATION: FU LUNG NODULE, EMPHESEMA, CAD COMPARISON: CHESTWO CT chest wo con from 07/30/2018 TECHNIQUE: IV Contrast: 75ml Optiray 350 Axial images obtained with sagittal and coronal reformats. All CT scans at the facility use one or more dose reduction, viz: automated exposure control, ma/kV adjustment per patient size (including targeted exams where dose is matched to indication, i.e. head), or iterative reconstruction technique. FINDINGS: No mediastinal or hilar mass. Patient was originally scanned on 12/30/2018 but was not scanned following exuberant coughing as suggested on the previous exam. There was an area of nodular increased density along the posterior aspect of the trachea. The patient was asked to be re-scanned following exuberant coughing. This area was no longer present. However, on the 2nd exam there was an area of increased density in the mid aspect of the esophagus which was not present on the 1st exam consistent with a foreign body within the esophagus in the mid aspect of the esophagus. This could even represent contrast or a swallowed foreign body. No contrast was evident within the stomach however. Atherosclerotic calcification is present within the aorta and coronary arteries. Normal heart size. There is mild pericardial thickening anteriorly. There is centrilobular emphysematous change with COPD. No suspicious pulmonary nodules are apparent. There is mild bronchial thickening with hyperinflation. No lobar consolidation or collapse. A stable nodular opacity is present in the left lower lobe at 5 mm with a sub adjacent 3 mm nodule. There is diffuse atherosclerotic vascular disease. 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 IMPRESSION: 1. COPD/centrilobular emphysema. 2. Originally there was an area of nodularity along the posterior aspect of the trachea which was not persistent when the patient was rescanned following coughing. Previously noted nodularity along the left aspect of the trachea is not apparent on today's exam it was likely related to mucous. 3. In the mid and proximal esophagus there is an area of hyperdensity 5 cm in length on the repeat images likely related something the patient has ingested. Please correlate with clinical findings. 4. 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
== END ==
PROVIDERS: PCP Family Medicine; Visit Provider Family Medicine
DX: R91.8 Other nonspecific abnormal finding of lung field (principal)
CPT/HCPCS: 71270; Q9967

== ENCOUNTER → 2019-01-04 08:21 | Outpatient (CLI) | payer MEDICARE, SELFPAY | PROVIDERS: PCP Family Medicine; Visit Provider Family Medicine | DX: R91.8 Other nonspecific abnormal finding of lung field (principal) ==

== ENCOUNTER → 2019-01-11 09:06 | Outpatient (CLI) | payer MEDICARE, SELFPAY ==
[2019-01-11 09:35] LABS: Basophils % 0.3 % (0.1-2.0); Eosinophils # 0.1 K/mm3 (0.0-0.4); Eosinophils % 0.9 % (0.1-12.0); Hematocrit 39.3 % (42.0-52.0); Hemoglobin 11.7 g/dL (14.1-18.0); Lymphocytes # 1.2 K/mm3 (0.7-4.5); Lymphocytes % 12.4 % (10-50); Mean Corpuscular HGB Conc 29.7 g/dL (31.8-35.4); Mean Corpuscular Hemoglobin 27.1 pg (27.0-31.2); Mean Platelet Volume 8.8 fl (7.4-10.4); Monocytes # 0.8 K/mm3 (0.1-1.0); Neutrophils # 7.4 K/mm3 (1.8-7.8); Neutrophils % 78.4 % (37.0-80.0); Platelet Count 238 K/mm3 (142-424); Red Blood Count 4.32 M/mm3 (4.60-6.20); Red Cell Distribution Width 15.8 % (11.5-17.5); White Blood Count 9.5 K/mm3 (4.8-10.8)
[2019-01-11 12:42] LABS: Alanine Aminotransferase 19 U/L (12-78); Albumin Level 3.8 gm/dL (3.4-5.0); Alkaline Phosphatase 88 U/L (46-116); Anion Gap 11.1 mEq/L (5-15); Aspartate Amino Transferase 23 U/L (15-37); Bilirubin,Total 0.9 mg/dL (0.2-1.0); Blood Urea Nitrogen 26 mg/dL (7-18); Carbon Dioxide 36 mmol/L (21.0-32.0); Chloride 94 mmol/L (98-107); Chol/HDL Ratio 1.9 (1-3.5); Cholesterol 118 mg/dL (140-200); Creatinine,Serum 1.26 mg/dL (0.70-1.30); Estimated Glomerular Filt Rate 55 ml/min (>60); GFR (African American) 67 ML/MIN (>60); Globulin 3.8 gm/dl (1.3-3.2); Glucose 94 mg/dL (74-106); HDL Cholesterol 61 mg/dL (27-67); LDL Cholesterol 50 mg/dL (0-130); Potassium 5.1 mmoL/L (3.5-5.1); Prostate Specific Ag Screen 1.4 ng/mL (0.0-4.0); Sodium 136 mmol/L (136-145); Thyroid Stimulating Hormone 1.19 uIU/ml (0.358-3.740); Total Protein,Serum 7.6 gm/dL (6.4-8.2); Triglycerides 36 mg/dL (30-200); VLDL Cholesterol 7 mg/dL (0-40)
== END ==
PROVIDERS: Visit Provider Family Medicine
DX: E87.6 Hypokalemia (principal); E78.00 Pure hypercholesterolemia, unspecified; E27.40 Unspecified adrenocortical insufficiency; N28.9 Disorder of kidney and ureter, unspecified; Z12.5 Encounter for screening for malignant neoplasm of prostate; Z85.46 Personal history of malignant neoplasm of prostate
CPT/HCPCS: 36415; 80053; 80061; 84443; 85025; G0103

== ENCOUNTER → 2019-02-15 12:41 | Outpatient (POV) | payer MEDICARE, SELFPAY | PROVIDERS: PCP Family Medicine; Visit Provider Nurse Practitioner Family | DX: Z00.00 Encounter for general adult medical examination without abnormal findings (principal) ==

== ENCOUNTER → 2019-06-07 14:33 | Outpatient (POV) | payer MEDICARE, SELFPAY | PROVIDERS: PCP Nurse Practitioner Family; Visit Provider Nurse Practitioner Family | DX: Z00.00 Encounter for general adult medical examination without abnormal findings (principal) ==

== ENCOUNTER → 2019-10-07 16:24 | Outpatient (CLI) | payer MEDICARE, SELFPAY ==
--- NOTE | 2019-10-07 16:36 | XR_ITS ---
PROCEDURE: XR ANKLE LT MIN 3V CLINICAL INDICATION: LT ANKLE PAIN Bruising and swelling COMPARISON: ANKR3 ANKLE-RT-3 VIEWS from 10/10/2015 FINDINGS: Mild soft tissue swelling medially and laterally. No fracture or dislocation. There is a small calcaneal spur. There is soft tissue swelling along the anterior aspect of the distal tibia IMPRESSION: Soft tissue swelling otherwise negative Dictated by: Calos Sheikh MD 10/07/2019 17:57 Electronically signed by Calos Sheikh MD in [facility] 10/07/2019 17:57
--- NOTE | 2019-10-07 16:38 | XR_ITS ---
PROCEDURE: XR TIBIA FIBULA LT 2V CLINICAL INDICATION: LT LEG AND FOOT PAIN Bruising and swelling COMPARISON: No exams were available for comparison FINDINGS: There is focal soft tissue swelling along the anterior and lateral aspect of the distal leg. No radiopaque foreign body or soft tissue gas apparent. No bony anomalies IMPRESSION: Soft tissue swelling otherwise negative Dictated by: Calos Sheikh MD 10/07/2019 17:58 Electronically signed by Calos Sheikh MD in [facility] 10/07/2019 17:58
--- NOTE | 2019-10-07 16:38 | XR_ITS ---
PROCEDURE: XR FOOT LT MIN 3V CLINICAL INDICATION: LT FOOT AND LEG PAIN Pain and swelling COMPARISON: No exams were available for comparison FINDINGS: No fracture or dislocation. No lytic or blastic change. There is normal mineralization. The joint spaces are well-preserved. No significant degenerative/arthritic changes. No erosive changes evident. Other findings:Nonspecific small calcaneal spur noted. There is some soft tissue swelling along the dorsal aspect of the foot. No radiopaque foreign body at this region. There is a small density noted in the space between the proximal phalanx of the 2nd and 3rd toe. A small sclerotic focus involves the distal phalanx of the 3rd toe. IMPRESSION: Soft tissue swelling with other nonacute nonspecific findings Dictated by: Calos Sheikh MD 10/07/2019 17:54 Electronically signed by Calos Sheikh MD in [place] 10/07/2019 17:54
== END ==
PROVIDERS: PCP Family Medicine; Visit Provider Physician Assistant
DX: M79.605 Pain in left leg (principal); M79.672 Pain in left foot
CPT/HCPCS: 73590; 73610; 73630

== ENCOUNTER → 2019-11-02 13:28 | Outpatient (CLI) | payer MEDICARE, SELFPAY | PROVIDERS: Visit Provider Physician Assistant | DX: L03.116 Cellulitis of left lower limb (principal) | CPT/HCPCS: 87070; 87077; 87186; 87205 ==

== ENCOUNTER → 2020-01-25 09:07 | Outpatient (CLI) | payer MEDICARE, MEDICAID, SELFPAY ==
[2020-01-25 09:40] LABS: Basophils % 0.3 % (0.1-2.0); Eosinophils # 0.1 K/mm3 (0.0-0.4); Eosinophils % 1.4 % (0.1-12.0); Hematocrit 35.7 % (42.0-52.0); Hemoglobin 11.1 g/dL (14.1-18.0); Lymphocytes # 1.2 K/mm3 (0.7-4.5); Lymphocytes % 15.5 % (10-50); Mean Corpuscular HGB Conc 31.2 g/dL (31.8-35.4); Mean Corpuscular Hemoglobin 28.4 pg (27.0-31.2); Mean Corpuscular Volume 91.2 fl (80-94); Mean Platelet Volume 8.2 fl (7.4-10.4); Monocytes # 0.7 K/mm3 (0.1-1.0); Monocytes % 8.2 % (1.7-9.3); Neutrophils # 5.9 K/mm3 (1.8-7.8); Neutrophils % 74.5 % (37.0-80.0); Platelet Count 238 K/mm3 (142-424); Red Blood Count 3.92 M/mm3 (4.60-6.20); Red Cell Distribution Width 17.1 % (11.5-17.5); White Blood Count 7.9 K/mm3 (4.8-10.8)
[2020-01-25 11:33] LABS: Alanine Aminotransferase 13 U/L (12-78); Albumin Level 3.6 g/dl (3.5-5.0); Albumin/Globulin Ratio 1.3 (1.1-1.8); Alkaline Phosphatase 81 U/L (38-126); Anion Gap 9.8 mEq/L (5-15); Aspartate Amino Transferase 27 U/L (17-59); Bilirubin,Total 0.6 mg/dl (0.2-1.3); Blood Urea Nitrogen 43 mg/dl (9-20); Calcium 9.7 mg/dl (8.4-10.2); Carbon Dioxide 37 mmol/L (22.0-30.0); Chloride 90 mmol/L (98-107); Chol/HDL Ratio 1.8 (1-3.5); Cholesterol 103 mg/dl (140-200); Estimated Glomerular Filt Rate 53 ml/min (>60); GFR (African American) 65 ML/MIN (>60); Globulin 2.8 g/dL (1.3-3.2); Glucose 95 mg/dl (74-100); HDL Cholesterol 56 mg/dl (40-60); Potassium 4.8 mmoL/L (3.5-5.1); Sodium 132 mmol/L (136-145); Total Protein,Serum 6.4 g/dl (6.3-8.2); Triglycerides 46 mg/dl (30-150); Uric Acid 6.1 mg/dl (3.5-8.5); VLDL Cholesterol 9 mg/dL (0-40)
[2020-01-25 11:44] LABS: Direct LDL Cholesterol 40.73 mg/dL (100-129)
== END ==
PROVIDERS: Visit Provider Family Medicine
DX: I48.20 Chronic atrial fibrillation, unspecified (principal); E78.5 Hyperlipidemia, unspecified; E79.0 Hyperuricemia without signs of inflammatory arthritis and tophaceous disease
CPT/HCPCS: 36415; 80053; 80061; 84550; 85025

== ENCOUNTER 2020-02-15 15:00 | Outpatient (RCR) | payer MEDICARE, MEDICAID, SELFPAY ==
--- NOTE | 2019-10-14 16:56 | HMH.PTOPWND ---
Rehab Outpt Wound Evaluation Rehab OP Wound Evaluation Start: 10/14/19 16:18 Freq: Status: Active Protocol: Document 10/14/19 16:18 [email or web address] (Rec: 10/14/19 16:55 [email or web address] [id number]) Electronically Signed By Mata Peres, TESSY 10/14/19 16:18 Subjective/History History History This is the initial Physical Therapy Wound clinic evaluation for Goyo Vaz. 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 Pt reports he lost his balance and fell onto L side onto concrete scraping and banging LLE. Pt reports he had some large wounds that have not healed. Pt went to PCP who then referred PT to wound clinic. Subjective Subjective Pt c/o pain and TTP of wounds Wound Eval Wound Left Medial Proximal Foot Wound Type Contusion Wound Length (cm) 3.0 Wound Width (cm) 3.0 Wound Depth (cm) 1.0 Wound Bed Appearance Beefy Red,Slough Percentage Granulated (%) 75 Percentage of Slough (%) 25 Percentage of Eschar (Black) (%) 25 Wound Margins Description Roll Under Edges Surrounding Tissue Appearance Purple Drainage Description Sanguineous Drainage Amount Large Drainage Odor Slight Odor Dressing Status Open to Air Packing Type Gauze Pads Comment betadyne Primary Dressing Gauze Pad Wound Secondary Dressing Type Gauze Roll/Wrap,Adhering Gauze Roll Wound Debridement Result Healthy Tissue Revealed, Necrotic Tissue Remains Dressing Change Patient Tolerance Tolerated Well Left Lower Distal Haney Wound Type Contusion Wound Length (cm) 3.5 Wound Width (cm) 2.5 Wound Depth (cm) 1.0 Wound Bed Appearance Dusky Red,Slough Percentage Granulated (%) 90 Percentage of Slough (%) 10 Percentage of Eschar (Black) (%) 10 Wound Margins Description Roll Under Edges Surrounding Tissue Appearance Purple Edema Appearance Shiny,Puffy Surrounding Tissue Temperature Warm Drainage Description Sanguineous Drainage Amount Large Drainage Odor Slight Odor Dressing Status Open to Air Packing Type Gauze Pads Comment
--- NOTE | 2020-01-04 16:06 | HMH.RHREAS ---
Rehab Reassessment Rehab OP Re-assessment Start: 11/16/19 14:44 Freq: Status: Active Protocol: Document 01/04/20 16:00 MARTA (Rec: 01/04/20 16:02 MARTA [id number]) Electronically Signed By Darrin Banks, PT 01/04/20 16:00 Rehab Re-assessment Subjective Subjective Pt reports much less discomfort in L LE. Objective Objective Notes L LE wounds (in cm) SUP: L= 2. 1 W= 1.3 MID: L= 1.7 W= 1.3 INF: L= 2.3 W= 2.8 Assessment Progress Assessment Progressing as Expected Assessment Notes wounds have filled in - sig. decrease in depth Patient goals met STG 05/09 LTG 04/07 Revised Goals 100% epithelialization on all wounds Pt to B I w/ home dressing change and care Plan Plan cont w/ original POC 3/week 8 weeks Frequency of Therapy 3 x/wk Duration of therapy 8 wks PHYSICIAN CERTIFICATION: I certify the specified therapy services for Goyo Vaz are required, authorized, and reviewed every 30 days.
== END 2020-02-15 16:20 | disposition home or self-care (01) ==
LOC: PT 15:00
PROVIDERS: Visit Provider Physician Assistant
DX: T14.8XXA Other injury of unspecified body region, initial encounter (principal); L03.116 Cellulitis of left lower limb; M79.662 Pain in left lower leg
CPT/HCPCS: 29580; 97140; 97161; 97164; 97597; 97598; 97760

== ENCOUNTER 2020-02-18 08:42 | Observation (INO) | payer MEDICARE, MEDICAID, SELFPAY ==
[2020-02-18] VITALS (11 sets, daily range): BP systolic 90–120; BP diastolic 58–76; PULSE 82–99; RESP 14–20; TEMP 36.4–36.7; O2SAT 94–100; BMI 20.7; BMI 14.5
--- NOTE | 2020-02-18 08:43 | HMH.EDGENADL ---
ED Disposition Clinical Impression: Dehydration, Acute kidney injury UTI (urinary tract infection) Qualifiers: Urinary tract infection type: acute cystitis Hematuria presence: with hematuria Qualified Code(s): N30.01 - Acute cystitis with hematuria Disposition: Admitted as Observation Condition on Discharge: Good Referrals: Darren Vega MD [Primary Care Provider] - - Critical Care Critical Care Time: No Attestation: On , the high probability of a clinically significant, sudden or life threatening deterioration of the following system(s) required my full and direct attention, intervention and personal management. The time I documented below is in addition to time spent performing reported procedures but includes the following listed in this critical care notation. Medical Decision Making - Medical Records Medical records reviewed: Yes: I reviewed the patient's medical records. MR Comment: Reviewed 2018 visit for low potassium. No recent laboratory results available at this facility. - Sathya Inquiry Pt receiving controlled substance: No Vital Signs: 02/18/20 08:43 02/18/20 09:00 02/18/20 09:33 Temperature 97.8 F Temperature Source Oral Pulse Rate [Right Brachial] 84 99 H 84 Respiratory Rate 18 14 Blood Pressure [Right Arm] 120/76 108/68 L 118/72 Blood Pressure Mean [Right Arm] 90 81 87 Blood Pressure Source [Right Arm] Automatic Cuff Automatic Cuff Automatic Cuff Blood Pressure Position [Right Arm] Sitting Sitting Sitting 02 Sat by Pulse Oximetry 100 95 96 Oxygen Delivery Method Room Air Room Air Room Air 02/18/20 10:00 Temperature Temperature Source Pulse Rate [Right Brachial] 93 H Respiratory Rate 18 Blood Pressure [Right Arm] 108/68 L Blood Pressure Mean [Right Arm] 81 Blood Pressure Source [Right Arm] Automatic Cuff Blood Pressure Position [Right Arm] Sitting 02 Sat by Pulse Oximetry 95 Oxygen Delivery Method Room Air - Lab Data Lab results reviewed: Yes: I reviewed the patient's lab results. Lab Results 02/18/20 08:43: WBC 11.0 H, RBC 4.20 L, Hgb 12.1 L, Hct 38.5 L, MCV 91.8, MCH 28.9, MCHC 31.5 L, RDW 18.6 H, Plt Count 201, MPV 8.1, Neut % (Auto) 85.8 H, Lymph % (Auto) 7.9 L, [place] % (Auto) 6.0, Eos % (Auto) 0.3, Baso % (Auto) 0.0 L, Neut # (Auto) 9.5 H, Lymph # (Auto) 0.9, [place] # (Auto) 0.7, Eos # (Auto) 0.0, Baso # (Auto) 0.0, Total Counted 100, Neutrophils % (Manual) 92 H, Lymphocytes % (Manual) 4 L, Monocytes % (Manual) 4, Platelet Estimate Normal, RBC Morphology Normal 02/18/20 08:43: Sodium 131 L, Potassium 4.5, Chloride 88 L, Carbon Dioxide 33 H, Anion Gap 14.5, BUN 59 H, Creatinine 2.20 H, Estimated Creat Clear 22, Estimated GFR 29 L, Est GFR ( Amer) 35 L, Glucose 84, Calcium 10.1, Total Bilirubin 0.9, AST 29, ALT 14, Alkaline Phosphatase 76, Troponin I 0.02, Total Protein 7.1, Albumin 3.9, Globulin 3.2, Albumin/Globulin Ratio 1.2 02/18/20 09:00: Urine Color Yellow, Urine Appearance Clear, Urine pH 6.0, Ur Specific [place] 1.010, Urine Protein Negative, Urine Glucose (UA) Negative, Urine Ketones Negative, Urine Blood 1+, Urine Nitrate Negative, Urine Bilirubin Negative, Urine Urobilinogen 0.2, Ur Leukocyte Esterase Trace, Urine RBC 5-10, Urine WBC 10-20, Ur Squamous Epith Cells 3-5, Urine Bacteria 1+, Hyaline Casts 5-10, Waxy Casts 3-5 02/18/20 09:40: Lactate 1.3 02/18/20 09:40: SARS-CoV-2 IgG Ab (Rapid) Negative, SARS-CoV-2 IgM Ab (Rapid) Negative Result diagrams: 02/18/20 08:43 02/18/20 08:43 Orders (Tests/Meds): ED MEDICATIONS Generic Name Dose Route Start Last Admin Trade Name Freq PRN Reason Stop Dose Admin Sodium Chloride 1,000 mls @ 100 mls/hr 02/18/20 09:30 02/18/20 09:38 Sod Chlor 0.9% 1000ml Bag IV 03/19/20 09:29 100 mls/hr .Q10H MELYSSA Administration Levofloxacin/Dextrose 500 mg in 100 mls @ 100 mls/hr 02/18/20 10:17 Levaquin 500mg/100ml Premix IV 02/18/20 11:16 ONCE ONE Protocol ORDERS Category Date Time Status
--- NOTE | 2020-02-18 08:49 | XR_ITS ---
PROCEDURE: XR CHEST AP CLINICAL HISTORY: weakness and cough COMPARISON: CR CXR CHEST(2 VIEWS-NOT PORTABLE) from 03/13/2015 CR CXR1 CHEST-PORTABLE from 06/14/2015 CR CXR1VP XR chest portable from 09/25/[address] CHEST WO/W CON from 12/30/2018 FINDINGS: There is marked hyperexpansion of the lung ceballos with depression and flattening of the hemidiaphragms. There is minimal discoid atelectasis versus postinflammatory scarring at the left costophrenic angle. The lung ceballos are clear of active infiltrate. Cardiac size is normal. There is mild attenuation of the pulmonary vasculature in the lung periphery. There monitor lines overlying the chest. IMPRESSION: Moderately severe COPD, no acute chest pathology noted Dictated by: Dr. Trav Granger MD 02/18/2020 10:05 Dr. Trav Granger MD in [place] 02/18/2020 10:05
[2020-02-18 08:56] LABS: Eosinophils % 0.3 % (0.1-12.0); Hematocrit 38.5 % (42.0-52.0); Hemoglobin 12.1 g/dL (14.1-18.0); Lymphocytes # 0.9 K/mm3 (0.7-4.5); Lymphocytes % 7.9 % (10-50); Mean Corpuscular HGB Conc 31.5 g/dL (31.8-35.4); Mean Corpuscular Hemoglobin 28.9 pg (27.0-31.2); Mean Corpuscular Volume 91.8 fl (80-94); Mean Platelet Volume 8.1 fl (7.4-10.4); Monocytes # 0.7 K/mm3 (0.1-1.0); Neutrophils # 9.5 K/mm3 (1.8-7.8); Neutrophils % 85.8 % (37.0-80.0); Platelet Count 201 K/mm3 (142-424); Red Cell Distribution Width 18.6 % (11.5-17.5)
[2020-02-18 08:57] LABS: Chloride 88 mmol/L (98-107); Potassium 4.5 mmoL/L (3.5-5.1); Sodium 131 mmol/L (136-145)
--- NOTE | 2020-02-18 08:58 | ECG_ITS ---
APPROVED REPORT Exam: Resting ECG HR:91 bpm ECG Measurements Heart Rate 91 AXES QRSd 104 QRS 92 QT 366 T 83 QTc 450 Conclusion Atrial fibrillation Rightward axis Nonspecific ST abnormality Abnormal ECG Electronically signed by : [place], 02/19/2020 06:57:04
[2020-02-18 08:59] LABS: Alanine Aminotransferase 14 U/L (12-78); Aspartate Amino Transferase 29 U/L (17-59); Blood Urea Nitrogen 59 mg/dl (9-20); Creatinine Clearance Estimated 22 mL/min (50-200); Estimated Glomerular Filt Rate 29 ml/min (>60); GFR (African American) 35 ML/MIN (>60)
[2020-02-18 09:00] LABS: Albumin Level 3.9 g/dl (3.5-5.0); Albumin/Globulin Ratio 1.2 (1.1-1.8); Alkaline Phosphatase 76 U/L (38-126); Anion Gap 14.5 mEq/L (5-15); Bilirubin,Total 0.9 mg/dl (0.2-1.3); Calcium 10.1 mg/dl (8.4-10.2); Carbon Dioxide 33 mmol/L (22.0-30.0); Globulin 3.2 g/dL (1.3-3.2); Glucose 84 mg/dl (74-100); Total Protein,Serum 7.1 g/dl (6.3-8.2)
[2020-02-18 09:11] LABS: MANUAL DIFFERENTIAL MANUAL DIFFERENTIAL (MANUAL DIFF)
[2020-02-18 09:12] LABS: Troponin I 0.02 ng/ml (0.00-0.034)
[2020-02-18 09:30] LABS: Lymphocytes % 4 % (10-50); Monocytes % 4 % (2-9); Neutrophils % 92 % (42-76); Platelet Estimate Normal; RBC Morphology Normal; Total Cells Counted 100
--- NOTE | 2020-02-18 09:40 | PC.NURSE ---
Pt resting in room with family at bedside, denies any issues at this time
[2020-02-18 09:46] LABS: Microscopic, Urine URINE MICROSCOPIC (MICROSCOPIC)
[2020-02-18 09:48] LABS: Appearance,Urine CLEAR (Clear); Bilirubin,Urine Negative (Negative); Blood, Urine 1+ (Negative); Color,Urine YELLOW (Yellow); Glucose,Urine (UA) Negative (Negative); Ketones,Urine Negative (Negative); Leukocyte Esterase,Urine TRACE (Negative); Nitrate,Urine Negative (Negative); Protein,Urine Negative (Negative); Urobilinogen,Urine 0.2 EU/dl (0.2)
[2020-02-18 09:54] LABS: Lactic Acid 1.3 mmol/L (0.7-2.1)
[2020-02-18 09:58] LABS: Bacteria,Urine 1+ /lpf
--- NOTE | 2020-02-18 10:08 | PC.NURSE ---
speaking with Dr. Beebe
[2020-02-18 10:15] LABS: Coronavirus 19 IgG Antibody Negative (Negative); Coronavirus 19 IgM Antibody Negative (Negative)
--- NOTE | 2020-02-18 10:23 | PC.NURSE ---
Called Care Management for admission
--- NOTE | 2020-02-18 10:57 | HMH.HP ---
*Admission Date: 02/18/20 <CyrusTrav cabreraa 02/18/20 11:45> *Chief complaint: UTI, Dehydration <CyrusAracelis cabrera 02/18/20 11:45> *History of present illness: Mr. Vaz is a 79yo white male with history of COPD, CHF, Afib on xarelto, HLP, and prostate ca. He is not oxygen dependent at home although his reports he is chronically dyspneic with exertion. He reports 2-3 days of generalized weakness at home. Per the ER record, he was unable to get to the bathroom by himself and it has been necessary for her to help him back and forth. She reported some times when she was helping him to the bathroom that he would go down and she would have to hold him up but he did not fall or injure himself and she does not believe he lost consciousness at any point. She also reported a decreased appetite although he has continued to drink fluids well. He was brought to the [facility] ED for evaluation today due to increasing weakness. Upon arrival, his WBC was elevated at 11.0 with Hgb 12.1 and Hct 38.5. His renal function was decreased with BUN 59, Creatinine 2.20, and GFR of 29. CXR showed COPD with fibrotic changes. EKG showed Afib with controlled response with no evidence of acute ischemia or injury. UA showed UTI and he received IV Levaquin. Blood and urine cultures were obtained. He is currently without complaint while reading the newspaper on the ER stretcher. He denies any recent fever, nausea, vomiting, or diarrhea. He denies recent urinary complaints. He has no pain and denies SOB. He will be admitted with orders for IV fluids and Levaquin. Diuretics will be held. <Cyrus,Aracelis 02/18/20 11:45> [facility] History Medical History: Reports:: Anxiety, Arrhythmia, Atrial Fibrillation, Cancer (prostate), Congestive Heart Failure, Chronic Obstructive Pulmonary Disease (COPD), Cerebrovascular Accident, Hyperlipidemia, Hypertension, Urinary Tract Infection Denies:: Diabetes Mellitus Type 1, Diabetes Mellitus Type 2, Internal Pacemaker, MRSA, Seizures <Aracelis Bridges 02/18/20 12:15> *Have you ever received a pneumonia vaccine?: No <Aracelis Bridges 02/18/20 11:45> *Have you received a flu vaccine this season?: No <Aracelis Bridges 02/18/20 11:45> Other Medical History: Denies: Blood Transfusion Reaction <Cyrus02/18/20 11:45> Other Surgeries: Yes: Sinus Surgery. No: Pacemaker <CyrusAracelis - 02/18/20 11:45> Amputation: No <Cyrus02/18/20 11:45> Fractures: No <Cyrus02/18/20 11:45> - *Social History Smoking Status: Never smoker <CyrusAracelis - 02/18/20 11:45> Tobacco Type: smokeless tobacco <Cyrus02/18/20 11:45> Alcohol Intake: never <Cyrus02/18/20 11:45> Substance Use Type: other <Cyrus02/18/20 11:45> *Occupational Status:: retired <Cyrus02/18/20 11:45> Housing: house <Cyrus02/18/20 11:45> Household Members: spouse <Cyrus02/18/20 11:45> *Travel in the last 8 weeks: None <Cyrus02/18/20 12:15> - Psychiatric History Pschychiatric History:: Reports:: Anxiety <Cyrus02/18/20 11:45> Family Hx:: Coronary Artery Disease, Heart Attack, Hypertension <CyrusAracelis - 02/18/20 11:45> Review of Systems - Constitutional Reports fatigue, Reports weakness, Denies body ache(s), Denies chills, Denies fever(s), Denies headache(s) <CyrusTrav02/18/20 12:15> - Eyes Denies change in vision <Cyrus,02/18/20 12:15> - ENT Denies headache(s), Denies nasal congestion, Denies nasal discharge, Denies sinus pressure, Denies sore throat, Denies dizziness <Trav Bridges02/18/20 12:15> - *Cardiovascular Reports leg swelling, Denies chest pain, Denies chest pain with activity, Denies shortness of breath, Denies shortness of breath with activity <Aracelis Bridges - 02/18/20 12:15> - *Respiratory Denies cough, Denies shortness of breath, Denies shortness of breath with activity <Aracelis Bridges - 02/18/20 12:15> - *Gastrointestinal Denies abdominal pain, Denies loose stools, Denies nausea, Denies vomiting
--- NOTE | 2020-02-18 12:22 | PC.NURSE ---
Dime-sized, stage 2 located under LT gluteal fold: Dressed with polymem Large scab noted to lateral side of LLE Dime-sized, stage 2 noted to lateral aspect of RT foot: Dressed with polymem
--- NOTE | 2020-02-18 13:30 | HMH.PHAVTE ---
[facility] Pharmacy VTE Monitoring - Patient Demographics Admission date: 02/18/20 Report Date: 02/18/20 Time: 13:30 Allergies/Adverse Reactions: Patient Allergies Penicillins Allergy (Intermediate, Verified 03/08/19 09:40) Redness of Skin cetirizine [From ZYRTEC] Allergy (Unknown, Verified 03/08/19 09:40) Unknown allergy reaction erythromycin base Allergy (Unknown, Verified 03/08/19 09:40) Unknown allergy reaction BRYAN Inhibitors Allergy (Verified 03/08/19 09:40) Unknown allergy reaction LEATHER AND OTHER WATCH BANDS Adverse Reaction (Uncoded 09/26/17 08:35) Unknown allergy reaction Height: 1.75 m Weight: 44.679 kg Patient Problems: Current Active Problems Urinary tract infection (Acute) Dehydration (Acute) Acute kidney injury (Acute) COPD (chronic obstructive pulmonary disease) (Acute) Afib (Acute) - VTE Risk Labs: VTE Related Lab Results Hgb 12.1 g/dL (14.1-18.0) L 02/18/20 08:43 Hct 38.5 % (42.0-52.0) L 02/18/20 08:43 Plt Count 201 K/mm3 (142-424) 02/18/20 08:43 BUN 59 mg/dl (9-20) H 02/18/20 08:43 Creatinine 2.20 mg/dl (0.66-1.25) H 02/18/20 08:43 Estimated Creat Clear 22 mL/min (50-200) 02/18/20 08:43 Was VTE Risk Assessment Performed: Yes VTE Score: 4 VTE Risk Level: Low Risk - Prophylaxis VTE Prophylaxis Ordered?: Yes Types of VTE Prophylaxis: TEDS Knee High, Pharmacological Location of Applied Device: Bilateral Lower Extremeties Pharmacologic Type: Other (XARELTO)
--- NOTE | 2020-02-18 17:44 | PC.NURSE ---
A&OX4. PT HAS TOLERATED ROOM AIR WELL THROUGHOUT SHIFT. RESPIRATIONS REGULAR AND UNLABORED. INSPIRATORY AND EXPIRATORY RHONCHI NOTED THROUGHOUT LUNGS. ACTIVE BOWEL SOUNDS HEARD IN ALL 4 QUADRANTS. SOFT AND NONTENDER ABDOMEN. NO BM THUS FAR. PT HAS BEEN INCONTINENT AT TIMES WITH URINE. PT HAS BEEN CHANGED NEEDED. LARGE, RED SCAB NOTED TO LLE. BRUISING SCATTERED THROUGHOUT BODY. DRESSING NOTED TO R 5TH DIGIT. DRESSING NOTED BELOW L BUTTCHEEK. BOTH ARE CDI. PT MOVES INDEPENDENTLY IN BED. NO REPORTS OF PAIN THUS FAR. BED ALARM ON TO PROMOTE SAFETY. BED IN LOWEST POSITION. CALL LIGHT WITHIN REACH. VSS. WILL CONTINUE TO MONITOR.
[2020-02-19 04:00] VITALS: BP 96/59; PULSE 85; RESP 16; TEMP 36.3; O2SAT 93
--- NOTE | 2020-02-19 04:17 | PC.NURSE ---
No acute changes noted. Pt is A&Ox3. He has rested well t/o night. Ate vanilla pudding at beginning of shift. VSS. Remains on RA at 93%. Rhonchi noted t/o lung ceballos. Has not c/o any soa. Has voided 3x. Stress incontinence noted. 300 cc urine output measured. BS x4. No BM this shift. Medications administered per mar. Call light within reach. No other concerns noted. Will continue to monitor.
[2020-02-19 05:00] VITALS: BMI 15.4
[2020-02-19 06:50] LABS: Basophils % 0.2 % (0.1-2.0); Eosinophils # 0.1 K/mm3 (0.0-0.4); Eosinophils % 1.1 % (0.1-12.0); Hematocrit 35.3 % (42.0-52.0); Hemoglobin 11.3 g/dL (14.1-18.0); Lymphocytes # 0.8 K/mm3 (0.7-4.5); Lymphocytes % 8.7 % (10-50); Mean Corpuscular Hemoglobin 29.6 pg (27.0-31.2); Mean Corpuscular Volume 92.6 fl (80-94); Mean Platelet Volume 8.2 fl (7.4-10.4); Monocytes # 0.7 K/mm3 (0.1-1.0); Monocytes % 7.6 % (1.7-9.3); Neutrophils # 7.2 K/mm3 (1.8-7.8); Neutrophils % 82.5 % (37.0-80.0); Platelet Count 146 K/mm3 (142-424); Red Blood Count 3.81 M/mm3 (4.60-6.20); Red Cell Distribution Width 18.5 % (11.5-17.5); White Blood Count 8.8 K/mm3 (4.8-10.8)
[2020-02-19 07:03] LABS: Chloride 98 mmol/L (98-107)
[2020-02-19 07:04] LABS: Potassium 4.2 mmoL/L (3.5-5.1); Sodium 134 mmol/L (136-145)
[2020-02-19 07:07] LABS: Anion Gap 8.2 mEq/L (5-15); Blood Urea Nitrogen 43 mg/dl (9-20); Carbon Dioxide 32 mmol/L (22.0-30.0); Creatinine Clearance Estimated 27 mL/min (50-200); Estimated Glomerular Filt Rate 45 ml/min (>60); GFR (African American) 55 ML/MIN (>60); Glucose 88 mg/dl (74-100)
[2020-02-19 07:38] LABS: Thyroid Stimulating Hormone 1.02 uIU/mL (0.465-4.68)
[2020-02-19 07:43] VITALS: BP 93/58; PULSE 85; RESP 20; TEMP 36.4; O2SAT 93
[2020-02-19 08:00] VITALS: PULSE 85; RESP 20; O2SAT 93
--- NOTE | 2020-02-19 08:35 | HMH.ACPN2 ---
Internal Medicine - PN: Subj *Date: 02/19/20 *Time: 08:35 Interval history: He rested fairly well last night other than being up to void. No new complaints this morning. He specifically denies shortness of breath. O2 sats at rest are normal on room air. No complaints of abdominal pain. Appetite remains poor. Exam Vital signs and Labs for Last 24 Hours: Temp Pulse Resp BP Pulse Ox 97.5 F L 85 20 93/58 L 93 L 02/19/20 07:43 02/19/20 07:43 02/19/20 07:43 02/19/20 07:43 02/19/20 07:43 Laboratory Results - last 24 hr 02/18/20 08:43: WBC 11.0 H, RBC 4.20 L, Hgb 12.1 L, Hct 38.5 L, MCV 91.8, MCH 28.9, MCHC 31.5 L, RDW 18.6 H, Plt Count 201, MPV 8.1, Neut % (Auto) 85.8 H, Lymph % (Auto) 7.9 L, [place] % (Auto) 6.0, Eos % (Auto) 0.3, Baso % (Auto) 0.0 L, Neut # (Auto) 9.5 H, Lymph # (Auto) 0.9, [place] # (Auto) 0.7, Eos # (Auto) 0.0, Baso # (Auto) 0.0, Total Counted 100, Neutrophils % (Manual) 92 H, Lymphocytes % (Manual) 4 L, Monocytes % (Manual) 4, Platelet Estimate Normal, RBC Morphology Normal 02/18/20 08:43: Sodium 131 L, Potassium 4.5, Chloride 88 L, Carbon Dioxide 33 H, Anion Gap 14.5, BUN 59 H, Creatinine 2.20 H, Estimated Creat Clear 22, Estimated GFR 29 L, Est GFR ( Amer) 35 L, Glucose 84, Calcium 10.1, Total Bilirubin 0.9, AST 29, ALT 14, Alkaline Phosphatase 76, Troponin I 0.02, Total Protein 7.1, Albumin 3.9, Globulin 3.2, Albumin/Globulin Ratio 1.2 02/18/20 09:00: Urine Color Yellow, Urine Appearance Clear, Urine pH 6.0, Ur Specific [place] 1.010, Urine Protein Negative, Urine Glucose (UA) Negative, Urine Ketones Negative, Urine Blood 1+, Urine Nitrate Negative, Urine Bilirubin Negative, Urine Urobilinogen 0.2, Ur Leukocyte Esterase Trace, Urine RBC 5-10, Urine WBC 10-20, Ur Squamous Epith Cells 3-5, Urine Bacteria 1+, Hyaline Casts 5-10, Waxy Casts 3-5 02/18/20 09:40: Lactate 1.3 02/18/20 09:40: SARS-CoV-2 IgG Ab (Rapid) Negative, SARS-CoV-2 IgM Ab (Rapid) Negative 02/19/20 06:40: Sodium 134 L, Potassium 4.2, Chloride 98, Carbon Dioxide 32 H, Anion Gap 8.2, BUN 43 H D, Creatinine 1.50 H D, Estimated Creat Clear 27, Estimated GFR 45 L, Est GFR ( Amer) 55 L D, Glucose 88 02/19/20 06:40: WBC 8.8, RBC 3.81 L, Hgb 11.3 L, Hct 35.3 L, MCV 92.6, MCH 29.6, MCHC 32.0, RDW 18.5 H, Plt Count 146 D, MPV 8.2, Neut % (Auto) 82.5 H, Lymph % (Auto) 8.7 L, [place] % (Auto) 7.6, Eos % (Auto) 1.1, Baso % (Auto) 0.2, Neut # (Auto) 7.2, Lymph # (Auto) 0.8, [place] # (Auto) 0.7, Eos # (Auto) 0.1, Baso # (Auto) 0.0 I & O for Last 24 hours: Intake & Output 02/16/20 02/17/20 02/18/20 02/19/20 11:59 11:59 11:59 11:59 Intake Total 1351 / 1351 Output Total 650 / 650 Balance 701 / 701 Weight 98 lb 8 oz 104 lb 2 oz Microbiology Reports for the Last 24 Hours: Microbiology 02/18/20 09:00 Urine,Clean Catch Urine Culture - Preliminary Narrative: He is alert and oriented. Color is normal. No respiratory distress. Chest with generally diminished breath sounds in bilateral rhonchi. No wheezes. Heart is irregularly irregular. Abdomen is thin, soft, nondistended with no tenderness. Extremities no edema. Assessment and Plan (1) Acute kidney injury Status: Acute Category: Medical Code(s): N17.9 - Acute kidney failure, unspecified (2) Dehydration Status: Acute Category: Medical Code(s): E86.0 - Dehydration (3) Urinary tract infection Status: Acute Qualifiers: Urinary tract infection type: acute cystitis Hematuria presence: with hematuria Qualified Code(s): N30.01 - Acute cystitis with hematuria Category: Medical Code(s): N39.0 - Urinary tract infection, site not specified (4) COPD (chronic obstructive pulmonary disease) Status: Acute Category: Medical Code(s): J44.9 - Chronic obstructive pulmonary disease, unspecified (5) Chronic atrial fibrillation Status: Acute Category: Medical Code(s): I48.20 - Chronic atrial fibrillation, unspecified (6) Low BMI Status: Ac
[2020-02-19 09:54] LABS: Calcium 8.9 mg/dl (8.4-10.2)
[2020-02-19 11:55] LABS: Prostate Specific Ag, Diagnost 0.301 ng/ml (0.0-4.0)
[2020-02-19 15:49] VITALS: BP 97/60; PULSE 83; RESP 14; TEMP 36.4; O2SAT 96
--- NOTE | 2020-02-19 16:31 | PC.NURSE ---
Pt has been pleasant and cooperative this shift. A&O X4. No complaints of pain or SOA. Pt is on room air with sats. >90%. Lung sounds reveal inspiratory/expiratory rhonchi. No edema noted. Scattered bruising noted to entire body. Stage 2 noted under LT gluteal fold and covered with polymem. Stage 2 noted to lateral aspect of RT foot and covered with polymem. Pt ambulates stand-by assistance and sat up in the recliner for several hours this shift. Pt uses the urinal to void clear, yellow urine without issue. No BM this shift. 20 G peripheral IV in the LT forearm is patent and infusing NS @ 100 ML/HR. B/P slightly low, but other VSS. Call light within reach. Will continue to monitor.
[2020-02-19 19:49] VITALS: BP 100/60; PULSE 90; RESP 17; TEMP 36.6; O2SAT 95
[2020-02-20 03:33] VITALS: BP 92/56; PULSE 93; RESP 17; TEMP 36.7; O2SAT 93
--- NOTE | 2020-02-20 03:36 | PC.NURSE ---
No acute changes this shift. Pt is A&) x4. Has rested well. No complaints voiced. VS has remained stable. Lungs are diminished. BS active. No BM this shift. Pt has had some incontinent episodes of urine. Medications administered per mar. Call light within reach. Will continue to monitor.
[2020-02-20 04:56] VITALS: BMI 16.2
[2020-02-20 05:53] LABS: Basophils % 0.1 % (0.1-2.0); Eosinophils # 0.1 K/mm3 (0.0-0.4); Eosinophils % 1.3 % (0.1-12.0); Hematocrit 37.9 % (42.0-52.0); Hemoglobin 11.6 g/dL (14.1-18.0); Lymphocytes # 0.9 K/mm3 (0.7-4.5); Lymphocytes % 10.4 % (10-50); Mean Corpuscular HGB Conc 30.6 g/dL (31.8-35.4); Mean Corpuscular Hemoglobin 29.1 pg (27.0-31.2); Mean Corpuscular Volume 95.2 fl (80-94); Mean Platelet Volume 9.3 fl (7.4-10.4); Monocytes # 0.7 K/mm3 (0.1-1.0); Neutrophils # 7.1 K/mm3 (1.8-7.8); Neutrophils % 80.2 % (37.0-80.0); Platelet Count 155 K/mm3 (142-424); Red Blood Count 3.98 M/mm3 (4.60-6.20); Red Cell Distribution Width 18.6 % (11.5-17.5); White Blood Count 8.8 K/mm3 (4.8-10.8)
[2020-02-20 06:09] LABS: Anion Gap 7.3 mEq/L (5-15); Blood Urea Nitrogen 30 mg/dl (9-20); Calcium 8.9 mg/dl (8.4-10.2); Carbon Dioxide 30 mmol/L (22.0-30.0); Chloride 103 mmol/L (98-107); Creatinine Clearance Estimated 39 mL/min (50-200); Estimated Glomerular Filt Rate 65 ml/min (>60); GFR (African American) 78 ML/MIN (>60); Glucose 85 mg/dl (74-100); Potassium 4.3 mmoL/L (3.5-5.1); Sodium 136 mmol/L (136-145)
[2020-02-20 07:35] VITALS: BP 94/50; PULSE 85; RESP 18; TEMP 36.6; O2SAT 94
[2020-02-20 08:00] VITALS: PULSE 85; RESP 18; O2SAT 94
--- NOTE | 2020-02-20 08:37 | HMH.ACPN2 ---
Internal Medicine - PN: Subj *Date: 02/20/20 *Time: 08:47 Interval history: He sat up in the chair several hours yesterday and tolerated well. States his legs feel stronger. Denies shortness of breath. O2 sats have been stable on room air at rest. Exam Vital signs and Labs for Last 24 Hours: Temp Pulse Resp BP Pulse Ox 97.8 F 85 18 94/50 L 94 L 02/20/20 07:35 02/20/20 07:35 02/20/20 07:35 02/20/20 07:35 02/20/20 07:35 Laboratory Results - last 24 hr 02/19/20 06:40: Calcium 8.9 D, Prostate Specific Ag 0.301, TSH 1.02 02/20/20 05:35: WBC 8.8, RBC 3.98 L, Hgb 11.6 L, Hct 37.9 L, MCV 95.2 H, MCH 29.1, MCHC 30.6 L, RDW 18.6 H, Plt Count 155, MPV 9.3, Neut % (Auto) 80.2 H, Lymph % (Auto) 10.4, [place] % (Auto) 8.0, Eos % (Auto) 1.3, Baso % (Auto) 0.1, Neut # (Auto) 7.1, Lymph # (Auto) 0.9, [place] # (Auto) 0.7, Eos # (Auto) 0.1, Baso # (Auto) 0.0 02/20/20 05:35: Sodium 136, Potassium 4.3, Chloride 103, Carbon Dioxide 30, Anion Gap 7.3, BUN 30 H D, Creatinine 1.10 D, Estimated Creat Clear 39, Estimated GFR 65, Est GFR ( Amer) 78 D, Glucose 85, Calcium 8.9 I & O for Last 24 hours: Intake & Output 02/17/20 02/18/20 02/19/20 02/20/20 11:59 11:59 11:59 11:59 Intake Total 1351 / 1351 2735 / 2735 Output Total 650 / 650 730 / 730 Balance 701 / 701 2004 Weight 98 lb 8 oz 104 lb 2 oz 109 lb 5 oz Microbiology Reports for the Last 24 Hours: Microbiology 02/18/20 09:00 Urine,Clean Catch Urine Culture - Final Multiple organisms, suggests contamination. Narrative: Lying comfortably in bed. Awake and alert. No respiratory distress. Color is good. Breath sounds are diminished with scattered rhonchi. Abdomen soft, nondistended, nontender. Extremities no edema. Assessment and Plan (1) Acute kidney injury Status: Acute Category: Medical Code(s): N17.9 - Acute kidney failure, unspecified (2) Dehydration Status: Acute Category: Medical Code(s): E86.0 - Dehydration (3) Urinary tract infection Status: Acute Qualifiers: Urinary tract infection type: acute cystitis Hematuria presence: with hematuria Qualified Code(s): N30.01 - Acute cystitis with hematuria Category: Medical Code(s): N39.0 - Urinary tract infection, site not specified (4) COPD (chronic obstructive pulmonary disease) Status: Acute Category: Medical Code(s): J44.9 - Chronic obstructive pulmonary disease, unspecified (5) Chronic atrial fibrillation Status: Acute Category: Medical Code(s): I48.20 - Chronic atrial fibrillation, unspecified (6) Low BMI Status: Acute Category: Medical - Assessment and plan all Dx Assessment and Plan for all problems:: Renal function is back to normal after hydration. Will discontinue IV fluids. Continue current antibiotic regimen. His urine culture is showing mixed john paul suggesting contamination. We will schedule for echocardiogram tomorrow.
[2020-02-20 15:41] VITALS: BP 90/60; PULSE 82; RESP 18; TEMP 36.7; O2SAT 97
--- NOTE | 2020-02-20 18:01 | PC.NURSE ---
Pt has been pleasant and cooperative this shift. A&O X4. No complaints of pain. Lung sounds are diminished. No edema noted. Scattered bruising noted to entire body. Stage 2 noted under LT gluteal fold and covered with polymem. Stage 2 noted to lateral aspect of RT foot and covered with polymem. Pt ambulates with stand-by assistance and sat up in the recliner for several hours this shift. Pt has been encouraged to ambulate more frequently, but only makes it to the doorway before reporting SOA although sats. remain >90% on room air. Pt uses the urinal to void clear, yellow urine without issue. 1 large, soft, brown BM this shift. 20 G peripheral IV in the LT forearm is patent and SL. IVF DC'd this shift per Dr. Vega. B/P remains low, but other VSS. Call light within reach. Will continue to monitor.
[2020-02-20 20:00] VITALS: BP 98/59; PULSE 74; RESP 17; TEMP 36.6; O2SAT 100
[2020-02-21 04:00] VITALS: BP 90/52; PULSE 75; RESP 17; TEMP 36.6; O2SAT 95
--- NOTE | 2020-02-21 04:00 | PC.NURSE ---
Pt has slept very well this shift. Denies soa/pain. UOP adequate. Lung sounds clear and pulses are palpable. No nausea noted.
[2020-02-21 05:08] VITALS: BMI 16.9
[2020-02-21 08:00] VITALS: BP 97/65; PULSE 84; RESP 16; TEMP 36.4; O2SAT 93
--- NOTE | 2020-02-21 08:35 | CA_ITS ---
APPROVED REPORT EXAM: Comprehensive 2D, Doppler, and color-flow Echocardiogram Family Law Legal Assistant: Lety Kennedy CRT Ht: 5 ft 8 in Wt: 109lbs BSA: 1.58 BP: 137/69 mmHg Indications: COPD, Shortness of Breath, CVA/TIA, Atrial Fibrillation, Hyperlipidemia, Hypertension/HDD 2D Dimensions LVOT 1.98 cm (M/F) 1.5-2.5 M-Mode Dimensions LA Diam 2.71 cm (1.9-4.0) Ao Diam 4.00 cm (2.0-3.7) LV Diastology LAT A' 11.30 cm/s Tricuspid Valve TR P. Velocity 278.00 cm/s RAP Estimate 10.00 mmHg RVSP 40.90 mmHg Left Ventricle Technically very difficult and limited study. Left atrium is mildly enlarged, left ventricle is normal size, mild concentric left ventricular hypertrophy, visually estimated ejection fraction approximately 50%, there is abnormal septal motion. Endocardial surfaces are poorly visualized, diastolic parameters are inconclusive. Right Ventricle Right atrium and right ventricle moderately enlarged with normal contractility. Aortic Valve Aortic valve is thickened and calcified leaflet chordae display mobility, aortic outflow velocity is not accurately recorded. Mitral Valve Mitral valve leaflets are minimally thickened, there is mild mitral regurgitation. Tricuspid Valve Tricuspid valve is grossly normal, there is mild tricuspid regurgitation, tricuspid regurgitation jet velocity is inadequate for calculation of the right ventricular systolic pressure. Pulmonic Valve Pulmonic valve is poorly visualized. Great Vessels Aortic root is normal size. Pericardium No significant pericardial effusion noted. Conclusion 1. Technically very difficult and limited study. 2. Mild biatrial enlargement, normal left ventricular size, mild concentric left ventricular hypertrophy, visually estimated ejection fraction approximately 50% with no regional wall motion abnormality, endocardial surfaces are poorly visualized, there is abnormal septal motion, diastolic parameters are inconclusive. 3. Mildly enlarged right ventricle with normal contractility. 4. Mild mitral and tricuspid regurgitation. 5. No significant pericardial effusion noted. Electronically signed by : Prabhu Whitten, 02/22/2020 06:21:55
--- NOTE | 2020-02-21 08:49 | HMH.ACPN2 ---
<Jennie Sanchez - Last Filed: 02/22/20 09:15> Internal Medicine - PN: Subj *Date: 02/22/20 *Time: 09:15 Interval history: Patient states he is better and stronger. Is wondering when he can go home. He eats as usual and denies problems. He is short of breath with exertion. He is scheduled for an echocardiogram today. Denies chest pain. He sit up in the chair for many hours yesterday and enjoyed. Exam Vital signs and Labs for Last 24 Hours: Temp Pulse Resp BP Pulse Ox 97.9 F 75 17 90/52 L 95 02/21/20 04:00 02/21/20 04:00 02/21/20 04:00 02/21/20 04:00 02/21/20 04:00 I & O for Last 24 hours: Intake & Output 02/18/20 02/19/20 02/20/20 02/21/20 11:59 11:59 11:59 11:59 Intake Total 1351 / 1351 3095 / 3095 670 / 670 Output Total 650 / 650 730 / 730 1010 / 1010 Balance 701 / 701 2365 / 2365 -340 / -340 Weight 98 lb 8 oz 104 lb 2 oz 109 lb 5 oz 114 lb 8 oz Microbiology Reports for the Last 24 Hours: Microbiology 02/18/20 09:00 Blood Blood Culture - Preliminary NO GROWTH AFTER 48 HOURS 02/18/20 09:00 Blood Blood Culture - Preliminary NO GROWTH AFTER 48 HOURS 02/18/20 09:00 Urine,Clean Catch Urine Culture - Final Multiple organisms, suggests contamination. - Constitutional no acute distress Comments: appears comfortable - *Routine Respiratory Exam Present: diminished air movement (posteriorly) - *Routine Cardiovascular Exam Present: irregular rhythm - *Routine Abdominal Exam Present: soft, normoactive bowel sounds. Absent: tenderness - *Routine Extremities Exam Absent: edema, calf tenderness - *Routine Neurological Exam Present: alert, oriented X3 Assessment and Plan (1) Acute kidney injury Status: Acute Category: Medical Code(s): N17.9 - Acute kidney failure, unspecified (2) Dehydration Status: Acute Category: Medical Code(s): E86.0 - Dehydration (3) Urinary tract infection Status: Acute Qualifiers: Urinary tract infection type: acute cystitis Hematuria presence: with hematuria Qualified Code(s): N30.01 - Acute cystitis with hematuria Category: Medical Code(s): N39.0 - Urinary tract infection, site not specified (4) COPD (chronic obstructive pulmonary disease) Status: Acute Category: Medical Code(s): J44.9 - Chronic obstructive pulmonary disease, unspecified (5) Chronic atrial fibrillation Status: Acute Category: Medical Code(s): I48.20 - Chronic atrial fibrillation, unspecified (6) Low BMI Status: Acute Category: Medical - Assessment and plan all Dx Assessment and Plan for all problems:: Echo cardiogram today due to persistent shortness of breath. <Darren Vega - Last Filed: 03/19/20 10:27> Internal Medicine - PN: Subj *Date: 03/19/20 *Time: 10:27 Exam Vital signs and Labs for Last 24 Hours: Temp Pulse Resp BP Pulse Ox 97.5 F L 84 16 97/65 L 93 L 02/21/20 08:00 02/21/20 08:00 02/21/20 08:00 02/21/20 08:00 02/21/20 08:00 I & O for Last 24 hours: Intake & Output 02/19/20 02/20/20 02/21/20 02/22/20 11:59 11:59 11:59 11:59 Intake Total 1351 / 1351 3095 / 3095 910 / 910 Output Total 650 / 650 730 / 730 1010 / 1010 Balance 701 / 701 2365 / 2365 -100 / -100 Weight 104 lb 2 oz 109 lb 5 oz 114 lb 8 oz Assessment and Plan (1) Acute kidney injury Status: Acute Category: Medical Code(s): N17.9 - Acute kidney failure, unspecified (2) Dehydration Status: Acute Category: Medical Code(s): E86.0 - Dehydration (3) Urinary tract infection Status: Acute Qualifiers: Urinary tract infection type: acute cystitis Hematuria presence: with hematuria Qualified Code(s): N30.01 - Acute cystitis with hematuria Category: Medical Code(s): N39.0 - Urinary tract infection, site not specified (4) COPD (chronic obstructive pulmonary disease) Status:
--- NOTE | 2020-02-21 09:28 | HMH.PTEV ---
Physical Therapy Evaluation Rehab PT IP Evaluation Start: 02/21/20 08:14 Freq: ONCE Status: Active Protocol: Document 02/21/20 09:24 REGGIE (Rec: 02/21/20 09:28 REGGIE [id number]) Subjective/History History History This is th einitial IP PT evaluation for Gary Zhu. Pt is a 79 y/o male well known to rehab. Pt lives at home w/ spouse and is minimally ambulatory in community using mostly a transport chair. Subjective Subjective no complaints from pt - pt reports he has been up walking in room Rehab PT IP Eval Objective Appearance Patient Behavior Appropriate,Cooperative Patient Orientation Person,Place,Birthday,Year Difficulty following instructions none Speech Pattern Clear,Appropriate Ambulation Patient Able to Ambulate Yes Ambulation Observation IP General Gait Pattern Observation Shuffling Step Ambulation Distance (feet) 25 Ambulation Assistive Device None Ambulation Ability Supervision/Stand by Balance Ability to Arise Able, uses arms to help Sitting Balance Steady, safe Standing Balance Steady, wide stance Dynamic Sitting Balance Ability Good Dynamic Standing Balance Ability Fair Transfers Bed Transfer Ability Independent Chair Transfer Ability Independent Sit to Stand Bed Transfer Ability Supervision/Stand by Sit to Stand Chair Transfer Ability Supervision/Stand by Rehab PT IP prob,goals,plan Problems Date of Evaluation: 02/21/20 Rehab Potential Rehab Potential Innapropriate for Skilled Therapy Equipment Needs Assistive Devices None / NA Discharge Plan PT Discharge Plan Pt safe and at baseline function. Pt to dc home once medically stable G -code Required Yes Eval Complexity Eval Charge Codes 11808 - Low Complexity G Codes PT Current Status Mobility PT Current Status Modifier CJ-At least 20% but less than 40% impaired, limited or restricted PT Goal Status Mobility PT Goal Status Modifer CJ-At least 20% but less than 40% impaired, limited or restricted PHYSICIAN CERTIFICATION: I certify the specified therapy services for Goyo Zhu are required, authorized, and reviewed every 30 days.
--- NOTE | 2020-02-21 14:54 | HMH.PHAINT ---
DISCHARGE COUNSELING COMPLETED ON PATIENT. NEW PRESCRIPTION FOR LEVOFLOXACIN THAT WAS SENT TO CLINIC PHARMACY. PATIENT IS TO CONTINUE ALL OTHER HOME MEDICATIONS. PATIENT AND PATIENT'S VERBALIZED UNDERSTANDING AND HAD NO QUESTIONS AT THIS TIME. -LEO MAO, WILLISD
--- NOTE | 2020-02-22 09:03 | HMH.DCSUM ---
General - General Admission date:: 02/18/20 Discharge date: 02/21/20 HPI HPI: Mr. Vaz is a 79yo white male with history of COPD, CHF, Afib on xarelto, HLP, and prostate ca. He was not oxygen dependent at home although his reports he was chronically dyspneic with exertion. He reported 2-3 days of generalized weakness at home. Per the ER record, he was unable to get to the bathroom by himself and it had been necessary for her to help him back and forth. She reported some times when she was helping him to the bathroom that he would go down and she would have to hold him up. He did not fall or injure himself and she did not believe he lost consciousness at any point. She also reported a decreased appetite although he continued to drink fluids well. He was brought to the [facility] ED for evaluation today due to increasing weakness. Upon arrival, his WBC was elevated at 11.0 with Hgb 12.1 and Hct 38.5. His renal function was decreased with BUN 59, Creatinine 2.20, and GFR of 29. CXR showed COPD with fibrotic changes. EKG showed Afib with controlled response with no evidence of acute ischemia or injury. UA showed UTI and he received IV Levaquin. Blood and urine cultures were obtained. He was without complaint while reading the newspaper on the ER stretcher. He denied any recent fever, nausea, vomiting, or diarrhea. He denied recent urinary complaints. He had no pain and denied SOB. He was admitted with orders for IV fluids and Levaquin. Diuretics were held. Hospital Course Hospital Course: On admission patient was started on Levaquin daily and initially had IV fluids at 100 an hour. He was also started on p.o. potassium twice a day as well as other home medicines. Patient initially denied shortness of breath with O2 sats normal on room air. His appetite was poor as was his usual. White blood cell count returned to normal. GFR improved. He was able to ambulate and sit up in a chair which he tolerated well. His legs began to feel stronger. He was evaluated by physical therapy who felt he was safe to be discharged home. He did complain of some shortness of breath on exertion. IV fluids were discontinued on 02/20/2020. Urine culture showed mixed john paul suggesting contamination. He did have an echocardiogram which showed an ejection fraction of 50% (see report). On 02/21/2020 patient was stable for discharge in the p.m. He was discharged home in stable and satisfactory condition. He was to follow-up with Dr. Vega on 02/29/2020 and he had an appointment with outsole leveler, Dr. Caor on 02/24/2020. He was to continue with his Levaquin for 6 more doses. See Data for specific test results. Objective Vital signs: Temp Pulse Resp BP Pulse Ox 97.5 F L 84 16 97/65 L 93 L 02/21/20 08:00 02/21/20 08:00 02/21/20 08:00 02/21/20 08:00 02/21/20 08:00 Narrative: Exam Vital signs and Labs for Last 24 Hours: Temp Pulse Resp BP Pulse Ox 97.9 F 75 17 90/52 L 95 02/21/20 04:00 02/21/20 04:00 02/21/20 04:00 02/21/20 04:00 02/21/20 04:00 I & O for Last 24 hours: Intake & Output 02/18/20 02/19/20 02/20/20 02/21/20 11:59 11:59 11:59 11:59 Intake Total 1351 / 1351 3095 / 3095 670 / 670 Output Total 650 / 650 730 / 730 1010 / 1010 Balance 701 / 701 2365 / 2365 -340 / -340 Weight 98 lb 8 oz 104 lb 2 oz 109 lb 5 oz 114 lb 8 oz Microbiology Reports for the Last 24 Hours: Microbiology 02/18/20 09:00 Blood Blood Culture - Preliminary NO GROWTH AFTER 48 HOURS 02/18/20 09:00 Blood Blood Culture - Preliminary NO GROWTH AFTER 48 HOURS 02/18/20 09:00 Urine,Clean Catch Urine Culture - Final Multiple organisms, suggests contamination. Constitutional no acute distress Comments: appears comfortable - *Routine Respiratory Exam Present: diminished air movement (posteriorly) - *Routine Card
== END 2020-02-21 14:57 | disposition home or self-care (01) ==
LOC: ER 10:19 → 2ND 11:39
PROVIDERS: Admitting Provider Family Medicine; Emergency Provider Emergency Medicine; PCP Family Medicine; Visit Provider Family Medicine
DX: N30.01 Acute cystitis with hematuria (principal); E86.0 Dehydration; J44.9 Chronic obstructive pulmonary disease, unspecified; I48.20 Chronic atrial fibrillation, unspecified; I11.0 Hypertensive heart disease with heart failure; I50.9 Heart failure, unspecified; Z88.0 Allergy status to penicillin; Z88.1 Allergy status to other antibiotic agents; Z88.8 Allergy status to other drugs, medicaments and biological substances; Z79.51 Long term (current) use of inhaled steroids; Z79.01 Long term (current) use of anticoagulants; Z85.46 Personal history of malignant neoplasm of prostate
CPT/HCPCS: 36415; 71045; 80048; 80053; 81001; 83605; 84153; 84443; 84484; 85007; 85025; 86328; 87040; 87086; 93005; 93306; 94640; 96365; 96366; 97161; 99284; G0378; J1956

== ENCOUNTER → 2020-04-11 11:04 | Outpatient (CLI) | payer MEDICARE, OTHER, SELFPAY ==
[2020-04-11 12:15] VITALS: PULSE 77; PULSE 80
--- NOTE | 2020-04-11 13:22 | CT_ITS ---
PROCEDURE: CT CHEST WO CON CLINICAL INDICATION: Trachal Lesion Shortness of air COMPARISON: CT CT CHEST WO/W CON from 12/30/2018 TECHNIQUE: Axial images obtained with sagittal and coronal reformats. All CT scans at the facility use one or more dose reduction, viz: automated exposure control, ma/kV adjustment per patient size (including targeted exams where dose is matched to indication, i.e. head), or iterative reconstruction technique. FINDINGS: HEART AND MEDIASTINAL STRUCTURES: There are coronary artery calcifications present. There is minimal thickening of the pericardium anteriorly. There is gynecomastia. LUNGS AND PLEURAL SPACES: COPD with some panlobular emphysema. 5 mm noncalcified nodule is present in the subpleural region the right middle lobe laterally and has developed in the interval. A subpleural opacity is present in the right lower lobe posteriorly at 1.9 x 0.7 cm with a small cystic area medially. 2 mm noncalcified nodules present in the left lower lobe posteriorly. 3 mm noncalcified nodules present in the left lower lobe laterally image 66 series 3 probably unchanged. There is mild thickening of the major fissure inferiorly on the left. There is mild diffuse bronchial thickening. Patchy area of increased density is present in the left upper lobe anteriorly image 32 series 3 BONY STRUCTURES: No acute finding UPPER ABDOMEN: Mildly enlarged adrenal glands are present bilaterally not significantly changed. 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 The celiac artery measures approximately 12 mm. IMPRESSION: 1. Panlobular emphysema with bronchial thickening. 2. New 5 mm nodule in the right middle lobe and a new subpleural opacity in the right lower lobe and a new 2 mm nodule in the left lower lobe. These are indeterminate. Suggest 6 month follow-up to confirm short term stability. 3. Coronary artery disease Dictated by: Calos Sheikh MD 04/12/2020 16:22 Calos Sheikh MD in [place] 04/12/2020 16:22
== END ==
PROVIDERS: PCP Family Medicine; Visit Provider Internal Medicine Pulmonary Disease
DX: J39.8 Other specified diseases of upper respiratory tract; R06.09 Other forms of dyspnea
CPT/HCPCS: 71250; 94060; 94640

== ENCOUNTER 2020-05-07 15:06 | Inpatient (IN) | payer MEDICARE, OTHER, SELFPAY ==
[2020-05-07] VITALS (16 sets, daily range): BP systolic 67–94; BP diastolic 44–78; PULSE 55–88; RESP 16–24; TEMP 32.7–36.8; O2SAT 95–100; BMI 16.9
--- NOTE | 2020-05-07 15:13 | XR_ITS ---
PROCEDURE: XR CHEST PORTABLE Referring Doctor: Shabbir Nagy Patient Age:79Y CLINICAL HISTORY: SOA dyspnea on home oxygen. Former smoker. COMPARISON: CR CXR1 CHEST-PORTABLE from 06/14/2015 CR CXR1VP XR chest portable from 09/25/2017 CR XR CHEST AP from 02/18/[address] CHEST WO CON from 04/11/2020 FINDINGS: AP supine portable CXR performed today COPD. With hyperexpansion t. heart appears mildly enlarged for this body habitus. The pulmonary vascularity appears normal. Left lung hyperexpanded clear with nothing acute. Right chest. Hyperexpanded. I would only additionally question minimal slight streaky density extending inferior from the right bart towards the right lung base more so than previous study. This may reflect some atelectasis and scarring. Difficult to exclude a early of streaky infiltrate.. Follow-up suggestive respiratory symptoms progress.. I suspect there is additional lengthwise skinfold projecting over the right chest as well. Of conceivably some overlying soft tissues could accentuate markings here at the right base as well. Calcified aortic knob; superior mediastinum unchanged; hilar regions unchanged Ribs chest wall otherwise unremarkable. Slight blunting CP angles appears to be most likely chronic in nature IMPRESSION: COPD. Hyperexpansion No prominent findings but I would only question a slight streaky bandlike area density extending from the right hilum towards the right lung base. May reflect atelectasis but could not exclude early streaky infiltrate Dictated by: Eleno Pennington MD 05/07/2020 19:06 Eleno Pennington MD in [place] 05/07/2020 19:06
--- NOTE | 2020-05-07 15:13 | ECG_ITS ---
APPROVED REPORT Exam: Resting ECG HR:74 bpm ECG Measurements Heart Rate 74 AXES QRSd 100 QRS 101 QT 398 T -48 QTc 441 Conclusion Atrial fibrillation with premature ventricular or aberrantly conducted complexes Rightward axis Low voltage QRS Poor r wave progression Abnormal ECG Electronically signed by : [place], 05/08/2020 05:55:42
--- NOTE | 2020-05-07 15:15 | HMH.EDGENADL ---
ED Disposition Clinical Impression: Hyperkalemia, COPD exacerbation, Dehydration Respiratory failure with hypoxia and hypercapnia Qualifiers: Chronicity: acute Qualified Code(s): J96.01 - Acute respiratory failure with hypoxia Hypotension Qualifiers: Hypotension type: unspecified hypotension type Qualified Code(s): I95.9 - Hypotension, unspecified Acute renal failure Qualifiers: Acute renal failure type: unspecified Qualified Code(s): N17.9 - Acute kidney failure, unspecified Disposition: Admitted As Inpatient Condition on Discharge: Critical - Critical Care Critical Care Time: Yes Attestation: On , the high probability of a clinically significant, sudden or life threatening deterioration of the following system(s) required my full and direct attention, intervention and personal management. The time I documented below is in addition to time spent performing reported procedures but includes the following listed in this critical care notation. Total Critical Care Time: 40 Vital system(s) involved:: Circulatory Failure, Metabolic Failure, Respiratory Failure, Renal Failure My critical care processes included: Assessment & monitoring of V/S, Initial and Re-exams, Data Review/Interpretation, Coordinating Care, Medication Orders and management, Documentation Medical Decision Making - Sathya Inquiry Pt receiving controlled substance: No Vital Signs: 05/07/20 15:08 05/07/20 15:34 05/07/20 16:27 Temperature 98.2 F Temperature Source Oral Pulse Rate Pulse Rate [Right] 85 69 84 Respiratory Rate 18 16 16 Blood Pressure Blood Pressure [Right Arm] 90/56 L 89/61 L 90/64 L Blood Pressure Mean [Right Arm] 67 70 72 Blood Pressure Source Blood Pressure Source [Right Arm] Automatic Cuff Blood Pressure Position Blood Pressure Position [Right Arm] Sitting 02 Sat by Pulse Oximetry 97 100 100 Oxygen Delivery Method Room Air Nasal Cannula Nasal Cannula Oxygen Flow Rate (LPM) 3 3 05/07/20 16:30 05/07/20 18:35 05/07/20 18:42 Temperature 98 F Temperature Source Pulse Rate 84 Pulse Rate [Right] 77 64 Respiratory Rate 24 16 18 Blood Pressure 82/50 L Blood Pressure [Right Arm] 72/47 L 94/56 L Blood Pressure Mean [Right Arm] 55 68 Blood Pressure Source Automatic Cuff Blood Pressure Source [Right Arm] Automatic Cuff Blood Pressure Position Sitting Blood Pressure Position [Right Arm] Supine Sitting 02 Sat by Pulse Oximetry 100 100 Oxygen Delivery Method Nasal Cannula Nasal Cannula Nasal Cannula Oxygen Flow Rate (LPM) 2 2 3 - Lab Data Lab Results 05/07/20 15:10: Chlamy pneumoniae PCR Not detected, Adenovirus (PCR) Not detected, B. pertussis DNA (PCR) Not detected, Coronavirus OC43 (PCR) Not detected, Coronavirus HKU1 (PCR) Not detected, Coronavirus 229E (PCR) Not detected, SARS-CoV-2 (PCR) Not detected, Coronavirus NL63 (PCR) Not detected, Human Metapneumovir PCR Not detected, Influenza A (H1) PCR Not detected, Influ A (H1N1/09) PCR Not detected, Influenza A (H3) PCR Not detected, Influenza Type A (PCR) Not detected, Influenza Type B (PCR) Not detected, M. pneumoniae (PCR) Not detected, Parainfluenza 1 (PCR) Not detected, Parainfluenza 2 (PCR) Not detected, Parainfluenza 3 (PCR) Not detected, Parainfluenza 4 (PCR) Not detected, RSV (PCR) Not detected, Entero/Rhino (PCR) Not detected 05/07/20 15:20: WBC 6.0, RBC 3.48 L, Hgb 10.3 L, Hct 33.5 L, MCV 96.3 H, MCH 29.6, MCHC 30.7 L, RDW 18.2 H, Plt Count 129 L, MPV 9.0, Neut % (Auto) 85.0 H, Lymph % (Auto) 10.2, [place] % (Auto) 4.3, Eos % (Auto) 0.5, Baso % (Auto) 0.0 L, Neut # (Auto) 5.1, Lymph # (Auto) 0.6 L, [place] # (Auto) 0.3, Eos # (Auto) 0.0, Baso # (Auto) 0.0, Total Counted 100, Neutrophils % (Manual) 80 H, Lymphocytes % (Manual) 15, Monocytes % (Manual) 4, Eosinophils % (Manual) 1, Platelet Estimate Slight decrease, Poikilocytosis 2+, Stomatocytes 1+, Acanthocytes (Spur) 1+ 05/07/20 15:20: Sodium 131 L, Potassium 6.7 H*, Chloride 92 L, Carbon Diox
[2020-05-07 15:44] LABS: Eosinophils % 0.5 % (0.1-12.0); Hematocrit 33.5 % (42.0-52.0); Hemoglobin 10.3 g/dL (14.1-18.0); Lymphocytes # 0.6 K/mm3 (0.7-4.5); Lymphocytes % 10.2 % (10-50); Mean Corpuscular HGB Conc 30.7 g/dL (31.8-35.4); Mean Corpuscular Hemoglobin 29.6 pg (27.0-31.2); Mean Corpuscular Volume 96.3 fl (80-94); Monocytes # 0.3 K/mm3 (0.1-1.0); Monocytes % 4.3 % (1.7-9.3); Neutrophils # 5.1 K/mm3 (1.8-7.8); Platelet Count 129 K/mm3 (142-424); Red Blood Count 3.48 M/mm3 (4.60-6.20); Red Cell Distribution Width 18.2 % (11.5-17.5)
[2020-05-07 15:45] LABS: MANUAL DIFFERENTIAL MANUAL DIFFERENTIAL (MANUAL DIFF)
[2020-05-07 15:49] LABS: Alanine Aminotransferase 15 U/L (12-78); Albumin Level 3.3 g/dl (3.5-5.0); Albumin/Globulin Ratio 1.1 (1.1-1.8); Alkaline Phosphatase 74 U/L (38-126); Anion Gap 12.7 mEq/L (5-15); Aspartate Amino Transferase 25 U/L (17-59); Bilirubin,Total 0.7 mg/dl (0.2-1.3); Calcium 9.7 mg/dl (8.4-10.2); Carbon Dioxide 33 mmol/L (22.0-30.0); Chloride 92 mmol/L (98-107); Creatinine Clearance Estimated 12 mL/min (50-200); Estimated Glomerular Filt Rate 16 ml/min (>60); GFR (African American) 19 ML/MIN (>60); Globulin 2.9 g/dL (1.3-3.2); Glucose 87 mg/dl (74-100); Sodium 131 mmol/L (136-145); Total Protein,Serum 6.2 g/dl (6.3-8.2)
[2020-05-07 15:53] LABS: ABG Base Excess 1.8 mmol/L (-2.4-2.3); ABG HCO3 29.5 mmhg (22.0-26.0); ABG Oxygen Saturation 98 % (90-100); ABG PH 7.22 mmol/L (7.35-7.45); ABG PO2 130.1 mmhg (80-100); ABG TCO2 31.8 mmhg (23-27)
[2020-05-07 15:53] LABS: Eosinophils % 1 % (0-3); Lymphocytes % 15 % (10-50); Monocytes % 4 % (2-9); Neutrophils % 80 % (42-76); Platelet Estimate Slight Decrease; Poikilocytosis 2+; Stomatocytes 1+; Total Cells Counted 100
[2020-05-07 15:54] LABS: Acanthocytes 1+
[2020-05-07 15:54] LABS: ABG PCO2 74.1 mmhg (35.0-45.0); Allen's Test acceptable; Source Left Radial
[2020-05-07 15:55] LABS: Blood Urea Nitrogen 87 mg/dl (9-20); Potassium 6.7 mmoL/L (3.5-5.1)
--- NOTE | 2020-05-07 16:00 | PC.NURSE ---
DR CRUM INFORMED OF CRITICAL LABS
[2020-05-07 16:02] LABS: Lactic Acid 0.9 mmol/L (0.7-2.1); Troponin I < 0.01 ng/ml (0.00-0.034)
[2020-05-07 16:16] LABS: Adenovirus,PCR Not Detected (NotDetected); Bordetella Pertussis Not Detected (NotDetected); Chlamydophila Pneumoniae, PCR Not Detected (NotDetected); Coronavirus 19, PCR Not Detected (NotDetected); Coronavirus 229E Not Detected (NotDetected); Coronavirus NL63 Not Detected (NotDetected); Coronavirus OC43 Not Detected (NotDetected); Coronovirus HKU1,PCR Not Detected (NotDetected); Human Metapneumovirus Not Detected (NotDetected); Influenza A, PCR Not Detected (NotDetected); Influenza AH1, 2009 Not Detected (NotDetected); Influenza AH1, PCR Not Detected (NotDetected); Influenza AH3,PCR Not Detected (NotDetected); Influenza B, PCR Not Detected (NotDetected); Mycoplasma Pneumoniae, PCR Not Detected (NotDetected); Parainfluenza 1, PCR Not Detected (NotDetected); Parainfluenza 2, PCR Not Detected (NotDetected); Parainfluenza 3, PCR Not Detected (NotDetected); Parainfluenza 4, PCR Not Detected (NotDetected); Respiratory Syncytial Virus Not Detected (NotDetected); Rhinovirus/Enterovirus Not Detected (NotDetected)
[2020-05-07 16:31] LABS: NT Pro Brain Natriuretic Pep. 11100 pg/mL (0-450)
[2020-05-07 16:42] LABS: Coronavirus 19 IgG Antibody Negative (Negative); Coronavirus 19 IgM Antibody Negative (Negative)
--- NOTE | 2020-05-07 16:45 | PC.NURSE ---
RESP AWARE OF DUONEB
--- NOTE | 2020-05-07 16:48 | PC.NURSE ---
confirmed medication with
--- NOTE | 2020-05-07 16:59 | PC.NURSE ---
Dr. Silvia kern
--- NOTE | 2020-05-07 17:16 | PC.NURSE ---
speaking with Dr. Vega
--- NOTE | 2020-05-07 18:02 | PC.NURSE ---
Notified floor of admission
[2020-05-07 18:59] LABS: Troponin I 0.01 ng/ml (0.00-0.034)
--- NOTE | 2020-05-07 19:48 | PC.NURSE ---
PT FAMILY TO BRING MEDICATIONS TOMORROW FOR MED REC AND VERIFICATION [facility] PHARMACY, FAMILY AND PT STATE THAT HE HAS MORE MEDICATIONS THAN WERE LISTED ON THE EXTERNAL RECORD. HE IS AOX4 ABLE TO MAKE NEEDS KNOWN TO STAFF, O2 SATS 100 ON 3LNC, PT DENIES PAIN, GENERALIZED EDEMA T/O LOWER EXTREMITIES AND PRESETNT TO ABD AND LOWER BACK, HE DENIES ANY N/V/D, PT ALSO DENIES ANY S/S OR EXPOSURE TO COVID, REPORT GIVEN TO Gato GUTIERREZ RN
--- NOTE | 2020-05-07 19:56 | PC.NURSE ---
SPOKE WITH DR ESQUIVEL REGARDING PT HYPOTENSION. TO CONTINUE CURRENT FLUID ORDERS. HE IS ALSO AWARE OF THE SEVERITY OF THE PT'S EDEMA AND DOES NOT BELIEVE IT TO BE FLUID OVERLOAD.
[2020-05-07 21:45] LABS: Troponin I < 0.01 ng/ml (0.00-0.034)
[2020-05-08] VITALS (28 sets, daily range): BP systolic 78–124; BP diastolic 31–70; PULSE 60–101; RESP 17–35; TEMP 34.6–37.1; O2SAT 90–100; BMI 16.9
[2020-05-08 03:25] LABS: POC Glucose,Bedside 105 (70-110)
--- NOTE | 2020-05-08 05:09 | PC.NURSE ---
pt is alert and oriented. redness to coccyx pt has been turned q2h. voiding per urinal with 125 ml out this shift. lungs where noted to be rhonchi, wheezes, and course crackles at start of shift. noted to currently be very diminished with faint crackles. ecchymosis. skin tear to right elbow and large scab on right hand. generalized pitting edema. pitting edema to BLE. right noted to be more edematous than left. weakness noted to left side. temp was 90.9 rectally rishi paw applied and currently is 95.8. bp manually was 67/50. md was notified and pt was placed on levophed drip. current rate is 12 mcg/min and being titrated to keep systolic greater than 90. 2LNC in place with o2 sat 95%. pt voice is hoarse and cough noted to sound loose and rattling. nonproductive. iv to right ac is patent but is oozing from iv site. second iv was placed in left ac. two small incontenient bowel movements. brick color and liquid like. call light in reach. will continue to monitior
[2020-05-08 06:26] LABS: Hematocrit 33.7 % (42.0-52.0); Hemoglobin 10.4 g/dL (14.1-18.0); Lymphocytes # 0.3 K/mm3 (0.7-4.5); Lymphocytes % 6.3 % (10-50); Mean Corpuscular HGB Conc 30.8 g/dL (31.8-35.4); Mean Corpuscular Hemoglobin 30.4 pg (27.0-31.2); Mean Corpuscular Volume 98.5 fl (80-94); Mean Platelet Volume 8.5 fl (7.4-10.4); Monocytes # 0.1 K/mm3 (0.1-1.0); Monocytes % 1.4 % (1.7-9.3); Neutrophils # 4.9 K/mm3 (1.8-7.8); Neutrophils % 92.2 % (37.0-80.0); Platelet Count 148 K/mm3 (142-424); Red Blood Count 3.42 M/mm3 (4.60-6.20); Red Cell Distribution Width 18.3 % (11.5-17.5); White Blood Count 5.3 K/mm3 (4.8-10.8)
--- NOTE | 2020-05-08 06:41 | PC.NURSE ---
iv in right ac continued to ooze. dc iv. during removal of dressing small skin tear occurred to right forearm. will attempt to obtain a new iv
[2020-05-08 06:48] LABS: Anion Gap 14.5 mEq/L (5-15); Carbon Dioxide 31 mmol/L (22.0-30.0); Chloride 92 mmol/L (98-107); Creatinine Clearance Estimated 12 mL/min (50-200); Estimated Glomerular Filt Rate 16 ml/min (>60); GFR (African American) 20 ML/MIN (>60); Glucose 106 mg/dl (74-100); Sodium 131 mmol/L (136-145)
[2020-05-08 07:08] LABS: MANUAL DIFFERENTIAL MANUAL DIFFERENTIAL (MANUAL DIFF)
--- NOTE | 2020-05-08 07:32 | HMH.PHAVTE ---
[facility] Pharm[facility] VTE Monitoring - Patient Demographics Admission date: 05/07/20 Report Date: 05/08/20 Time: 07:32 Allergies/Adverse Reactions: Patient Allergies Penicillins Allergy (Intermediate, Verified 03/28/20 14:20) Redness of Skin cetirizine [From ZYRTEC] Allergy (Unknown, Verified 03/28/20 14:20) Unknown allergy reaction erythromycin base Allergy (Unknown, Verified 03/28/20 14:20) Unknown allergy reaction BRYAN Inhibitors Allergy (Verified 03/28/20 14:20) Unknown allergy reaction LEATHER AND OTHER WATCH BANDS Adverse Reaction (Uncoded 03/28/20 14:20) Unknown allergy reaction Height: 1.75 m Weight: 52.163 kg Patient Problems: Current Active Problems Dehydration (Acute) Respiratory failure with hypoxia and hypercapnia (Acute) Hypotension (Acute) Acute renal failure (Acute) Hyperkalemia (Acute) COPD exacerbation (Acute) - VTE Risk Labs: VTE Related Lab Results Hgb 10.4 g/dL (14.1-18.0) L 05/08/20 05:50 Hct 33.7 % (42.0-52.0) L 05/08/20 05:50 Plt Count 148 K/mm3 (142-424) 05/08/20 05:50 BUN 87 mg/dl (9-20) H 05/07/20 15:20 Creatinine 3.70 mg/dl (0.66-1.25) H 05/07/20 15:20 Estimated Creat Clear 12 mL/min (50-200) 05/07/20 15:20 VTE Score: 7 VTE Risk Level: Moderate Risk - Prophylaxis VTE Prophylaxis Ordered?: Yes Types of VTE Prophylaxis: TEDS Knee High Location of Applied Device: Bilateral Lower Extremeties
[2020-05-08 07:48] LABS: Potassium 6.5 mmoL/L (3.5-5.1)
[2020-05-08 07:49] LABS: Blood Urea Nitrogen 91 mg/dl (9-20)
--- NOTE | 2020-05-08 08:20 | XR_ITS ---
PROCEDURE: XR CHEST PORTABLE CLINICAL HISTORY: short of breath COMPARISON: CR [id number] XR chest portable from 09/25/2017 CR XR CHEST AP from 02/18/[address] CHEST WO CON from 04/11/2020 CR XR CHEST PORTABLE from 05/07/2020 FINDINGS: The cardiomediastinal silhouette and pulmonary vascularity are within normal limits. There are small bilateral pleural effusions with bibasilar infiltrates. These findings are somewhat worse compared to the previous exam. There is COPD. IMPRESSION: Small bilateral effusions and bibasilar infiltrates both appears slightly worse. Dictated by: Calos Sheikh MD 05/08/2020 10:15 Calos Sheikh MD in [place] 05/08/2020 10:15
[2020-05-08 08:52] LABS: ABG Base Excess 1.5 mmol/L (-2.4-2.3); ABG HCO3 28.9 mmhg (22.0-26.0); ABG Oxygen Saturation 94 % (90-100); ABG PH 7.24 mmol/L (7.35-7.45); ABG PO2 77.3 mmhg (80-100); ABG TCO2 31.1 mmhg (23-27)
[2020-05-08 08:54] LABS: Allen's Test Acceptable; Oxygen 3 LPM NC %; Source Left Radial
[2020-05-08 08:58] LABS: ABG PCO2 69.4 mmhg (35.0-45.0)
--- NOTE | 2020-05-08 09:11 | HMH.PHAINT ---
MEDICATION RECONCILIATION COMPLETED ON PATIENT USING EXTERNAL FILL HISTORY FROM PHARMACY. -LEO MAO, WILLISD
--- NOTE | 2020-05-08 09:16 | CA_ITS ---
APPROVED REPORT EXAM: Comprehensive 2D, Doppler, and color-flow Echocardiogram Managed Services Sales Consultant: Joann Sharma, RT(R) Ht: 5 ft 9 in Wt: 115lbs BSA: 1.63 BP: 82/50 mmHg Indications: COPD, HTN, hyperlipidemia, ex smoker, resp failure, home O2, hx CVA, patient on bipap 2D Dimensions LVOT 1.99 cm (M/F) 1.5-2.5 M-Mode Dimensions RVDd 4.42 cm (0.9-2.6) LA Diam 4.20 cm (1.9-4.0) LVDd 2.73 cm (3.5-5.7) Ao Diam 2.70 cm (2.0-3.7) LVDs 1.81 cm (3.5-5.7) IVSd 0.92 cm (0.6-1.1) PWd 0.84 cm (0.6-1.1) EF (Teich) 64.40% FS 33.70% EDV (Teich) 27.80 mL ESV (Teich) 9.90 mL Tricuspid Valve TR P. Velocity 317.00 cm/s RAP Estimate 15.00 mmHg RVSP 55.20 mmHg Left Ventricle Technically difficult and poor study. Left atrium is mildly enlarged, left ventricle is normal size, there is mild concentric left ventricular hypertrophy, visually estimated ejection fraction 55% with no regional wall motion abnormality, endocardial surfaces are very poorly visualized. Right Ventricle Right atrium is moderately enlarged, right ventricle is markedly dilated with moderate reduction in right ventricular contractility. Aortic Valve Aortic valve is thickened and calcified without Doppler evidence of aortic stenosis or aortic insufficiency. Mitral Valve Mitral valve leaflets are minimally thickened, there is mild mitral regurgitation. Tricuspid Valve Tricuspid valve is grossly normal, there is no significant tricuspid regurgitation identified to calculated right ventricular systolic pressure. Pulmonic Valve Pulmonic valve is poorly visualized. Great Vessels Aortic root is normal size. Pericardium No significant pericardial effusion noted. Conclusion 1. Normal left ventricular size, mild concentric left ventricular hypertrophy, visually estimated ejection fraction 55% with no regional wall motion abnormality, diastolic parameters are inconclusive. 2. Markedly enlarged right ventricle with moderate reduction right ventricular contractility. 3. No significant pericardial effusion Electronically signed by : Prabhu Whitten, 05/08/2020 20:01:56
--- NOTE | 2020-05-08 09:29 | HMH.HP ---
*Admission Date: 05/07/20 <Jennie Sanchez - 05/08/20 09:42> *Chief complaint: Weakness and shortness of breath. <Jennie Sanchez - 05/08/20 09:42> *History of present illness: Mr. Vaz is a 79-year-old male with a history of Hypertension, COPD, anxiety disorder,And CVA who was brought to [facility] emergency room for evaluation due to progressive weakness and shortness of breath. Patient is very dyspneic this morning and unable to speak. Per notes family stated he had not been eating and drinking much at all. He was sleeping a lot. He seemed to be more short of breath the last couple of days. He did see Dr. Caro last week and was started on home oxygen and neb treatments. 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 Albert in [place] and he had a diuretic stopped because his blood pressure was too low. His did start him back on the diuretic about 1 week ago due to swelling in his legs. He is noted to have chronic edema of the legs. Also to note patient was hospitalized 02/17 through 02/21/2020 for acute kidney injury, dehydration, UTI, and COPD, also noted were a low BMI. With evaluation in the emergency room CBC showed a white blood cell count of 6000 with a hemoglobin of 10.3 and hematocrit of 33.5. Blood gases showed a pH of 7.22 PCO2 of 74.1 but PO2 of 130.1 and a bicarb of 29.5. Blood chemistries showed a sodium of 131 potassium is 6.7 chloride 92 and CO2 33. BUN was 87 and creatinine was 3.7. Lactate was 0.9. Liver function studies were not elevated. BNP was 11,100. Covid IgG and IgM were negative.Chest x-ray revealed COPD and hyperexpansion. With no prominent findings. Possible slight streaky bandlike area density extending from the right hilum towards the right lung base possibly reflecting atelectasis but could not exclude early strictly infiltrate. At the time of this exam patient is in respiratory distress. He cannot speak due to shortness of breath. Respiratory rate is about 40. O2 sats have increased to 90 with increase of his oxygen to 4 L/min. Repeat ABGs continue to show respiratory acidosis and he has been placed on BiPAP. He has received morphine IV which is helped to calm him down. He does want the BiPAP off but nursing is working with him on one-to-one basis. Blood pressure remains low and he remains on a norepinephrine drip. He has had Nino catheter inserted to bedside drainage. Pulmonology to see patient this a.m. <Jennie Sanchez 05/08/20 11:47> [facility] History Medical History: Reports:: Anxiety, Arrhythmia, Atrial Fibrillation, Cancer, Congestive Heart Failure, Chronic Obstructive Pulmonary Disease (COPD), Cerebrovascular Accident, Hyperlipidemia, Hypertension, Urinary Tract Infection Denies:: Diabetes Mellitus Type 1, Diabetes Mellitus Type 2, Internal Pacemaker, MRSA, Seizures <Jennie Sanchez 05/08/20 09:42> *Have you ever received a pneumonia vaccine?: Yes <Jennie Sanchez 05/08/20 09:42> *Have you received a flu vaccine this season?: Yes <Jennie Sanchez 05/08/20 09:42> Other Medical History: Denies: Blood Transfusion Reaction <Jennie Sanchez 05/08/20 09:42> Other Surgeries: Yes: Cardiac Catheterization, Sinus Surgery. No: Pacemaker <Jennie Sanchez 05/08/20 09:42> Amputation: No <Jennie Sanchez 05/08/20 09:42> Fractures: No <Jennie Sanchez 05/08/20 09:42> - *Social History Smoking Status: Former smoker <Jennie Sanchez 05/08/20 09:42> Tobacco Type: smokeless tobacco <Jennie Sanchez 05/08/20 09:42> # Packs/Day (cigarettes): 0 <Jennie Sanchez 05/08/20 09:42> Alcohol Intake: never <Jennie Sanchez 05/08/20 09:42> Substance Use Type: other <Jennie Sanchez 05/08/20 09:42> *Occupational Status:: retired <Jennie Sanchez 05/08/20 09:42> Housing: house <Jennie Sanchez 05/08/20 09:42> Household Members: spouse <Jennie Sanchez 05/08/20 09:42> *Travel in the last 8 weeks: None <Jennie Sanchez 05/08/20 09:42> - Psychiatric History Pschychiatric History:: Repor
--- NOTE | 2020-05-08 09:29 | HMH.PULMCON ---
*Admission Date: 05/07/20 *Reason for consult:: Acute hypoxic respiratory failure *History of present illness: Mr. Vaz is 79-year-old male follows in the pulmonary clinic for his severe COPD on triple inhaler therapy recently initiate home oxygen therapy presented to the hospital with worsening respiratory failure and pulmonary was called for further management. Further worsening patient denies any cough or fevers or chills any worsening productive phlegm. Patient also admits worsening lower extremity swelling and increasing abdominal girth. [facility] History Medical History: Reports:: Anxiety, Arrhythmia, Atrial Fibrillation, Cancer, Congestive Heart Failure, Chronic Obstructive Pulmonary Disease (COPD), Cerebrovascular Accident, Hyperlipidemia, Hypertension, Urinary Tract Infection Denies:: Diabetes Mellitus Type 1, Diabetes Mellitus Type 2, Internal Pacemaker, MRSA, Seizures *Have you ever received a pneumonia vaccine?: Yes *Have you received a flu vaccine this season?: Yes Other Medical History: Denies: Blood Transfusion Reaction Other Surgeries: Yes: Sinus Surgery. No: Pacemaker Amputation: No Fractures: No - *Social History Smoking Status: Former smoker Tobacco Type: smokeless tobacco # Packs/Day (cigarettes): 0 Alcohol Intake: never Substance Use Type: other *Occupational Status:: retired Housing: house Household Members: spouse *Travel in the last 8 weeks: None - Psychiatric History Pschychiatric History:: Reports:: Anxiety Family Hx:: Coronary Artery Disease, Hyperlipidemia, Hypertension ROS - Cons Reports anorexia - Eyes Denies blind spots, Denies blurry vision - ENT Reports abnormal hearing, Reports bleeding gums - Card Reports shortness of breath with activity, Reports leg swelling, Reports leg sores - Resp Respiratory: Denies change in phlegm color, Reports chest congestion, Reports cough, Reports non-productive cough, Reports dyspnea, Reports dyspnea on exertion, Denies excessive phlegm production, Denies coughing up blood, Denies pain on inspiration Meds Home Medications Medication Instructions Recorded Confirmed Type Furosemide [Furosemide 40MG tAB*] 40 mg PO BID 09/25/17 05/07/20 History Oxybutynin Chloride [Oxybutynin 15 mg PO DAILY 09/25/17 05/07/20 History Chloride ER] Rivaroxaban [Xarelto 15mg tablet] 15 mg PO QPMWM 09/25/17 05/08/20 History Spironolactone [Spironolactone 25 mg PO BID 09/25/17 05/07/20 History 25mg Tablet] allopurinoL [Allopurinol 100mg 100 mg PO DAILY 09/25/17 05/07/20 History tablet] Potassium Chloride [Klor-con 20 20 meq PO DAILY 03/31/18 05/08/20 History mEq tablet] calcium polycarbophiL [FiberCon 1,250 mg PO DAILY 03/31/18 05/07/20 History 625mg tablet] Multivit-Min/FA/Lycopen/Lutein 1 each PO DAILY 02/18/20 05/07/20 History [Centrum Silver Men Tablet] carvediloL [Coreg 25mg Tablet] 25 mg PO BID 02/18/20 05/07/20 History Albuterol Sulfate [Albuterol 1 puff IH QIDP PRN 05/08/20 05/08/20 History Sulfate Hfa] Atorvastatin Calcium [Lipitor 10mg 10 mg PO HS 05/08/20 05/08/20 History Tab] Budesonide/Glycopyr/Formoterol 2 puffs IH BID 05/08/20 05/08/20 History [Breztri Aerosphere Inhaler] Fesoterodine Fumarate [Toviaz] 4 mg PO DAILY 05/08/20 05/08/20 History Ipratropium/Albuterol Sulfate 3 ml IH BIDP PRN 05/08/20 05/08/20 History [Iprat-Albut 0.5-3(2.5) mg/3 ml] Mirtazapine [Remeron 15mg tablet] 15 mg PO HS 05/08/20 05/08/20 History Allergies Allergy/AdvReac Type Severity Reaction Status Date / Time Penicillins Allergy Intermediate Redness of Verified 03/28/20 14:20 Skin cetirizine [From [facility]] Allergy Unknown Unknown Verified 03/28/20 14:20 allergy reaction erythromycin base Allergy Unknown Unknown Verified 03/28/20 14:20 allergy reaction BRYAN Inhibitors Allergy Unknown Verified 03/28/20 14:20 allergy reaction [employer] AdvReac Unknown Uncoded 03/28/20 14:20
[2020-05-08 10:06] LABS: Lymphocytes % 3 % (10-50); Neutrophils % 97 % (42-76); Platelet Estimate Normal; RBC Morphology Normal; Total Cells Counted 100
--- NOTE | 2020-05-08 12:38 | CA_ITS ---
APPROVED REPORT Bilateral Lower Extremity Venous Study for DVT. Pharmacy Messenger: CT Indications Lower Extremity Edema: Bilateral Edema Vein Imaging CFV (R): compressive, spontaneous, phasic, augmentation SFJ (R): compressive, spontaneous, phasic, augmentation FEM (R): compressive, spontaneous, phasic, augmentation POP (R): compressive, spontaneous, phasic, augmentation DFV (R): compressive, spontaneous, phasic, augmentation PTV (R): compressive, spontaneous, phasic, augmentation GSV (R): compressive, spontaneous, phasic, augmentation SSV (R): Not Visualized Peroneals (R):poorly visualized GAS (R): Not Visualized CFV (L): compressive, spontaneous, phasic, augmentation SFJ (L): compressive, spontaneous, phasic, augmentation FEM (L): compressive, spontaneous, phasic, augmentation POP (L): compressive, spontaneous, phasic, augmentation DFV (L): compressive, spontaneous, phasic, augmentation PTV (L): compressive, spontaneous, phasic, augmentation GSV (L): compressive, spontaneous, phasic, augmentation SSV (L): Not Visualized Peroneals (L):Poorly visualized GAS (L): Not Visualized Findings Bilateral LE venous negative for DVT/SVT. Vessels in the lower leg difficult to image. Conclusion Bilateral LE venous negative for DVT/SVT. Vessels in the lower leg difficult to image. Diffuse subq edema Electronically signed by : Calos Sheikh MD 05/08/2020 16:02:11
--- NOTE | 2020-05-08 15:14 | HMH.CNCARD ---
History of Present Illness Consult date: 05/08/20 Requesting physician: Darren Vega Chief complaint: sob History of present illness: This is a 79-year-old white gentleman who has a history of hypertension, COPD and atrial fibrillation. He follows with Dr. Albert in [place] who is a firestopper installer. He did see him a few weeks ago and his diuretics were stopped because his blood pressure was low. His restarted his diuretics about a week ago due to swelling in his lower extremities. He does follow with pulmonology as well and was recently started on home oxygen and neb treatments. Shortness of breath continued to worsen and got severe. He had associated profound fatigue. His has been unable to get him out of bed because of his weakness and shortness of breath and that is why he was brought into the emergency department here. He was found to be hypercapnic and is on a BiPAP at this time. The patient is very confused and unable to answer any of my questions while I am in the room. All of his information is coming from his previous medical records. The patient's blood pressure has been low. He is currently on a Levophed drip. He does not appear to be in any distress. But he is somewhat combative while we are in the room. His BNP is elevated at 11,100. His troponins are negative. His creatinine is 3.2 and his potassium was 6.5. No history of coronary artery disease from my review or [place]. [facility] History I have reviewed the patient's past medical history: Yes Medical History: Reports:: Anxiety, Arrhythmia, Atrial Fibrillation, Cancer, Congestive Heart Failure, Chronic Obstructive Pulmonary Disease (COPD), Cerebrovascular Accident, Hyperlipidemia, Hypertension, Urinary Tract Infection Denies:: Diabetes Mellitus Type 1, Diabetes Mellitus Type 2, Internal Pacemaker, MRSA, Seizures *Have you ever received a pneumonia vaccine?: Yes *Have you received a flu vaccine this season?: Yes Other Medical History: Denies: Blood Transfusion Reaction Other Surgeries: Yes: Cardiac Catheterization, Sinus Surgery. No: Pacemaker Amputation: No Fractures: No - *Social History Smoking Status: Former smoker Tobacco Type: smokeless tobacco # Packs/Day (cigarettes): 0 Alcohol Intake: never Substance Use Type: other *Occupational Status:: retired Housing: house Household Members: spouse *Travel in the last 8 weeks: None - Psychiatric History Pschychiatric History:: Reports:: Anxiety Family Hx:: Coronary Artery Disease, Hyperlipidemia, Hypertension Meds Home Medications Medication Instructions Recorded Confirmed Type Furosemide [Furosemide 40MG tAB*] 40 mg PO BID 09/25/17 05/07/20 History Oxybutynin Chloride [Oxybutynin 15 mg PO DAILY 09/25/17 05/07/20 History Chloride ER] Rivaroxaban [Xarelto 15mg tablet] 15 mg PO QPMWM 09/25/17 05/08/20 History Spironolactone [Spironolactone 25 mg PO BID 09/25/17 05/07/20 History 25mg Tablet] allopurinoL [Allopurinol 100mg 100 mg PO DAILY 09/25/17 05/07/20 History tablet] Potassium Chloride [Klor-con 20 20 meq PO DAILY 03/31/18 05/08/20 History mEq tablet] calcium polycarbophiL [FiberCon 1,250 mg PO DAILY 03/31/18 05/07/20 History 625mg tablet] Multivit-Min/FA/Lycopen/Lutein 1 each PO DAILY 02/18/20 05/07/20 History [Centrum Silver Men Tablet] carvediloL [Coreg 25mg Tablet] 25 mg PO BID 02/18/20 05/07/20 History Albuterol Sulfate [Albuterol 1 puff IH QIDP PRN 05/08/20 05/08/20 History Sulfate Hfa] Atorvastatin Calcium [Lipitor 10mg 10 mg PO HS 05/08/20 05/08/20 History Tab] Budesonide/Glycopyr/Formoterol 2 puffs IH BID 05/08/20 05/08/20 History [Breztri Aerosphere Inhaler] Fesoterodine Fumarate [Toviaz] 4 mg PO DAILY 05/08/20 05/08/20 History Ipratropium/Albuterol Sulfate 3 ml IH BIDP PRN 05/08/20 05/08/20 History [Iprat-Albut 0.5-3(2.5) mg/3 ml] Mirtazapine [Remeron 15mg tablet] 15 mg PO HS 05/08/20 05/08/20 History Allergies Allergy/AdvRea
--- NOTE | 2020-05-08 18:15 | PC.WOUNDNOTE ---
Wound Location: Length: Width: Depth: Undermining Y/N: Tunneling cm: Granulation %: Slough/necrotic tissue %: Inflammation/swelling Y/N: Pain and/or tenderness Y/N: Exudate: Serosanguinous Sanguinous Serosanguinous Seropurulent Purulent Color: Clear Amy Cloudy/milky [place] Red Green Yellow Brown [place] Blue Consistency: Thick Thin Amount: None Scant Small Moderate Large Odor Y/N: top of left foot
--- NOTE | 2020-05-08 18:17 | PC.WOUNDNOTE ---
Wound Location: Length: Width: Depth: Undermining Y/N: Tunneling cm: Granulation %: Slough/necrotic tissue %: Inflammation/swelling Y/N: Pain and/or tenderness Y/N: Exudate: Serosanguinous Sanguinous Serosanguinous Seropurulent Purulent Color: Clear Amy Cloudy/milky [place] Red Green Yellow Brown [place] Blue Consistency: Thick Thin Amount: None Scant Small Moderate Large Odor Y/N: heel of left foot
--- NOTE | 2020-05-08 18:17 | PC.WOUNDNOTE ---
Wound Location: Length: Width: Depth: Undermining Y/N: Tunneling cm: Granulation %: Slough/necrotic tissue %: Inflammation/swelling Y/N: Pain and/or tenderness Y/N: Exudate: Serosanguinous Sanguinous Serosanguinous Seropurulent Purulent Color: Clear Amy Cloudy/milky [place] Red Green Yellow Brown [place] Blue Consistency: Thick Thin Amount: None Scant Small Moderate Large Odor Y/N: scab on right hand
--- NOTE | 2020-05-08 18:18 | PC.WOUNDNOTE ---
Wound Location: Length: Width: Depth: Undermining Y/N: Tunneling cm: Granulation %: Slough/necrotic tissue %: Inflammation/swelling Y/N: Pain and/or tenderness Y/N: Exudate: Serosanguinous Sanguinous Serosanguinous Seropurulent Purulent Color: Clear Amy Cloudy/milky [place] Red Green Yellow Brown [place] Blue Consistency: Thick Thin Amount: None Scant Small Moderate Large Odor Y/N: right elbow
--- NOTE | 2020-05-08 18:18 | PC.WOUNDNOTE ---
Wound Location: Length: Width: Depth: Undermining Y/N: Tunneling cm: Granulation %: Slough/necrotic tissue %: Inflammation/swelling Y/N: Pain and/or tenderness Y/N: Exudate: Serosanguinous Sanguinous Serosanguinous Seropurulent Purulent Color: Clear Amy Cloudy/milky [place] Red Green Yellow Brown [place] Blue Consistency: Thick Thin Amount: None Scant Small Moderate Large Odor Y/N: left forearm skin tear
--- NOTE | 2020-05-08 20:11 | PC.NURSE ---
pt has tolerated bipap at intervals this shift. pt q2hr, oral care given. 2 new iv placed. 20G in right hand and 20G in left hand. levophed gtt currently infusing at 16 mcg/min. vss. will cont. to monitor.
[2020-05-08 21:02] LABS: Anion Gap 11.5 mEq/L (5-15); Calcium 8.6 mg/dl (8.4-10.2); Carbon Dioxide 28 mmol/L (22.0-30.0); Chloride 97 mmol/L (98-107); Creatinine Clearance Estimated 12 mL/min (50-200); Estimated Glomerular Filt Rate 16 ml/min (>60); GFR (African American) 19 ML/MIN (>60); Glucose 171 mg/dl (74-100); Sodium 130 mmol/L (136-145)
[2020-05-08 21:04] LABS: Blood Urea Nitrogen 88 mg/dl (9-20); Potassium 6.5 mmoL/L (3.5-5.1)
--- NOTE | 2020-05-08 21:19 | XR_ITS ---
PROCEDURE: XR CHEST PORTABLE CLINICAL HISTORY: crackles on auscaultion, resp failure COMPARISON: CR XR CHEST AP from 02/18/[address] CHEST WO CON from 04/11/2020 CR XR CHEST PORTABLE from 05/07/2020 CR XR CHEST PORTABLE from 05/08/2020 FINDINGS: No evidence of CHF. COPD changes with bilateral lower lobe pneumonia. This appears slightly improved. There are small bilateral effusions. No acute bony abnormalities. IMPRESSION: Persistent but slightly improved bilateral lower lobe pneumonia and/or atelectatic change with effusions Dictated by: Calos Sheikh MD 05/09/2020 06:03 Calos Sheikh MD in [place] 05/09/2020 06:03
[2020-05-09] VITALS (24 sets, daily range): BP systolic 84–137; BP diastolic 44–75; PULSE 50–101; RESP 16–24; TEMP 35.4–36.6; O2SAT 91–100; BMI 21.2
[2020-05-09 07:07] LABS: Chloride 99 mmol/L (98-107); Sodium 130 mmol/L (136-145)
[2020-05-09 07:09] LABS: Alanine Aminotransferase 14 U/L (12-78); Alkaline Phosphatase 60 U/L (38-126); Aspartate Amino Transferase 31 U/L (17-59); Bilirubin,Total 0.7 mg/dl (0.2-1.3); Carbon Dioxide 23 mmol/L (22.0-30.0); Creatinine Clearance Estimated 16 mL/min (50-200); Estimated Glomerular Filt Rate 17 ml/min (>60); GFR (African American) 21 ML/MIN (>60)
[2020-05-09 07:10] LABS: Albumin Level 2.9 g/dl (3.5-5.0); Albumin/Globulin Ratio 1.1 (1.1-1.8); Calcium 8.5 mg/dl (8.4-10.2); Globulin 2.6 g/dL (1.3-3.2); Glucose 143 mg/dl (74-100); Total Protein,Serum 5.5 g/dl (6.3-8.2)
[2020-05-09 07:19] LABS: Blood Urea Nitrogen 91 mg/dl (9-20); Potassium 6.3 mmoL/L (3.5-5.1)
--- NOTE | 2020-05-09 07:48 | PC.NURSE ---
Late Entry: Titrated Levophed gtt as follows @2030 up to 18mcg/min @2200 up to 20mcg/min @2300 down to 18mcg/min @0000 down to 16mcg/min @0115 down to 14mcg/min @0545 down to 12mcg/min Pt tolerated bipap fair d/t tolerance issue, given morphine for pain relief and tolerated well. Pt requesting mask off this at 4am and he did not want to replace, put pt on 4LPM NC and sats maintaining at 98-100% so titrated down to 3LPM NC and pt still maintaining. Several skin areas noted, see skin assessment. Weeping serousanginueos fluid from BUE, white pads and new gown replaced 4x this shift. Lung sounds diminished and coarse crackles noted on initial assessment. CXR was obtained per Dr. Mills. New order received to change IVF to NS @ 250ml/hr to decrease to 150ml/hr. Pt had a urinary output of 110ml of dark keegan/cola cloudy urine this shift and IV intake of 4,335 IV intake since 1700 on 05/08/2020. MD Mills updated this am of these events.
[2020-05-09 08:42] LABS: Eosinophils % 0.1 % (0.1-12.0); Hematocrit 32.8 % (42.0-52.0); Hemoglobin 10.1 g/dL (14.1-18.0); Lymphocytes # 0.4 K/mm3 (0.7-4.5); Lymphocytes % 3.5 % (10-50); Mean Corpuscular HGB Conc 30.7 g/dL (31.8-35.4); Mean Corpuscular Hemoglobin 29.4 pg (27.0-31.2); Mean Corpuscular Volume 95.9 fl (80-94); Mean Platelet Volume 9.5 fl (7.4-10.4); Monocytes # 0.5 K/mm3 (0.1-1.0); Monocytes % 4.2 % (1.7-9.3); Neutrophils # 9.8 K/mm3 (1.8-7.8); Neutrophils % 92.1 % (37.0-80.0); Platelet Count 137 K/mm3 (142-424); Red Blood Count 3.42 M/mm3 (4.60-6.20); Red Cell Distribution Width 18.3 % (11.5-17.5); White Blood Count 10.7 K/mm3 (4.8-10.8)
[2020-05-09 08:45] LABS: MANUAL DIFFERENTIAL MANUAL DIFFERENTIAL (MANUAL DIFF)
--- NOTE | 2020-05-09 08:47 | XR_ITS ---
PROCEDURE: XR CHEST PORTABLE PICC PLAC CLINICAL HISTORY: Confirm PICC line placement COMPARISON: CT CT CHEST WO CON from 04/11/2020 CR XR CHEST PORTABLE from 05/07/2020 CR XR CHEST PORTABLE from 05/08/2020 CR XR CHEST PORTABLE from 05/08/2020 FINDINGS: Left upper extremity PICC line has been inserted. The tip is in the region the right atrium and could be withdrawn approximately 5 cm. Bilateral lower lobe infiltrate with small bilateral effusions noted. No acute bony abnormalities. IMPRESSION: Left upper extremity PICC in the region of the right atrium and should be withdrawn approximately 5 cm to assure superior vena cava positioning Dictated by: Calos Sheikh MD 05/09/2020 13:10 Calos Sheikh MD in [place] 05/09/2020 13:10
--- NOTE | 2020-05-09 08:50 | HMH.PULMPN ---
Internal Medicine - PN: Subj *Date: 05/09/20 *Time: 16:04 Interval history: No acute respiratory events overnight. Patient weaned to nasal cannula 2 L this morning saturating 98%. Exam - Constitutional Constitutional:: Absent: no acute distress, comfortable - HENMT Exam HENMT: Present: normocephalic, atraumatic - Neck Exam Neck:: Present: thyroid normal - Respiratory Exam Respiratory:: Present: able to speak in complete sentences, no respiratory distress, crackles - Cardiovascular Exam Cardiac:: Present: S1, S2 - GI Exam GI:: Present: soft - Neurological Exam Neurological: Absent: normal cognition Patient mentation improved from yesterday but however appears slightly lethargic. - Extremities Exam Extremities: Present: no cyanosis, no clubbing, edema Assessment and Plan (1) Right heart failure Status: Acute Category: Medical Code(s): I50.810 - Right heart failure, unspecified (2) Hypercapnic respiratory failure Status: Acute Category: Medical Code(s): J96.92 - Respiratory failure, unspecified with hypercapnia (3) Acute renal failure Status: Acute Qualifiers: Acute renal failure type: unspecified Qualified Code(s): N17.9 - Acute kidney failure, unspecified Category: Medical Code(s): N17.9 - Acute kidney failure, unspecified (4) Dehydration Status: Acute Category: Medical Code(s): E86.0 - Dehydration (5) Severe protein-calorie malnutrition Status: Acute Category: Medical Code(s): E43 - Unspecified severe protein-calorie malnutrition (6) Hyperkalemia Status: Acute Category: Medical Code(s): E87.5 - Hyperkalemia (7) Hypotension Status: Acute Qualifiers: Hypotension type: unspecified hypotension type Qualified Code(s): I95.9 - Hypotension, unspecified Category: Medical Code(s): I95.9 - Hypotension, unspecified (8) Chronic atrial fibrillation Status: Chronic Category: Medical Code(s): I48.20 - Chronic atrial fibrillation, unspecified - Assessment and plan all Dx Assessment and Plan for all problems:: #Hypoxic respiratory failure: #COPD Exacerbation: 75-year-old male with very severe COPD on triple inhaler therapy recently initiated on 4 L oxygen therapy presented with worsening respiratory failure. Patient found to have significantly elevated BNP at 111,000 along with worsening creatinine and hyperkalemia. Chest x-ray from admission showed questionable lower lobe pulmonary infiltrates which are slightly worsening which are likely from atelectasis Auscultation revealed clear breath sounds no wheezing. Patient denies any fevers or chills or any productive phlegm. Afebrile. Patient respiratory status significantly improved from yesterday morning on 2 L nasal cannula saturating 98%. Lower extremity Doppler did not show any evidence of PE Patient had echocardiogram performed that showed normal EF with grade 1 LV diastolic dyspnea however patient showed RV dilation with decreased contractility. Patient also noted to be in shock needing Levophed. Lactate within normal limits. Blood cultures no growth 48 hours. No other obvious source identified to explain this patient's shock. Patient likely to be in right heart failure and cardiogenic shock. Extremities cold. His elevated BNP and hyponatremia and volume overload status will further support this shock etiology. Patient would benefit from right heart cath / [place]-carla catheter to determine and follow his PA and PCWP to accurately optimize his volume status. Cardiology is following with this patient. Follow with cardiology recommendations Plan: - DuoNebs every 6 hours scheduled along with budesonide every 12 schedule - Continue prednisone 40 mg for total of 5 days - Continue Levoflaxacin x 5 days - Consider obtaining urine electrolytes and renal ultrasound to determine the etiology of his renal dysfunction - Volume optimization and predominantly right heart failure management as per
--- NOTE | 2020-05-09 08:51 | P.PN_ITS ---
Internal Medicine - PN: Subj *Date: 05/09/20 *Time: 08:51 Assessment and Plan (1) Right heart failure Status: Acute Category: Medical Code(s): I50.810 - Right heart failure, unspecified (2) Hypercapnic respiratory failure Status: Acute Category: Medical Code(s): J96.92 - Respiratory failure, unspecified with hypercapnia (3) Acute renal failure Status: Acute Qualifiers: Acute renal failure type: unspecified Qualified Code(s): N17.9 - Acute kidney failure, unspecified Category: Medical Code(s): N17.9 - Acute kidney failure, unspecified (4) Dehydration Status: Acute Category: Medical Code(s): E86.0 - Dehydration (5) Severe protein-calorie malnutrition Status: Acute Category: Medical Code(s): E43 - Unspecified severe protein- calorie malnutrition (6) Hyperkalemia Status: Acute Category: Medical Code(s): E87.5 - Hyperkalemia (7) Hypotension Status: Acute Qualifiers: Hypotension type: unspecified hypotension type Qualified Code(s): I95.9 - Hypotension, unspecified Category: Medical Code(s): I95.9 - Hypotension, unspecified (8) Chronic atrial fibrillation Status: Chronic Category: Medical Code(s): I48.20 - Chronic atrial fibrillation, unspecified - Assessment and plan all Dx Assessment and Plan for all problems:: # Left lower lobe pneumonia: # Abnormal CT scan: 75-year-old greater than [id number] smoking history current smoker presents with worsening respiratory failure and found to have left lower lobe pneumonia. CT chest also showed questionable left main bronchi endobronchial lesion with complete occlusion of the left main bronchi. Patient also found to have an endobronchial band on his main trachea. 4R adenopathy also noted. Denies any prior surgeries to the lung or any prior tracheostomy. Denies any hemoptysis or weight loss or loss of appetite. Patient on Coumadin for his atrial fibrillation. Not receiving any antiplatelets at this point of time. Plan: - Continue ceftriaxone and azithromycin - Recommend discontinuing Coumadin and bridge with Lovenox -patient is tentatively scheduled for bronchoscopy on Friday to 05/10/2020 (INR supratherapeutic on admission, 2.89 on 05/07/2020) - Recommend initiating DuoNebs every 6 hours scheduled -Follow with echocardiogram report #Thank you for involving pulmonary in this patient care. We will continue to follow.
[2020-05-09 09:07] LABS: ABG Base Excess -1.8 mmol/L (-2.4-2.3); ABG Oxygen Saturation 97 % (90-100); ABG PH 7.28 mmol/L (7.35-7.45); ABG PO2 98.7 mmhg (80-100); ABG TCO2 26.6 mmhg (23-27)
--- NOTE | 2020-05-09 09:08 | HMH.ACPN2 ---
<Jennie Sanchez - Last Filed: 05/09/20 09:08> Internal Medicine - PN: Subj *Date: 05/09/20 *Time: 09:08 Interval history: Patient continued to not like the BiPAP. It was removed this morning and he maintain O2 sats. Initially he said he was hungry but then when breakfast tray was brought and he declined to eat. He does deny chest pain this morning. He is difficult to arouse at this point and does not answer all questions. Per nursing: He remains on Levophed drip. And has been titrated to maintain blood pressure. He received about 2 L bolus of IV fluids in the evening. He has met had minimal urinary output. Labs this morning show white blood cell count of 10,700 with a hemoglobin of 10.1 hematocrit of 32. He had blood chemistries with a sodium of 130 potassium remains elevated at 6.3 BUN is 91 with a creatinine of 3.5. Liver function studies are not elevated. Venous Doppler study was negative for lower extremities.Chest x-ray revealed persistent but slightly improved bilateral lower lobe pneumonia and or atelectatic change with effusions. He continues to receive morphine for pain and anxiety. He will get another dose of Kayexalate this morning. Exam Vital signs and Labs for Last 24 Hours: Temp Pulse Resp BP Pulse Ox 97.5 F L 83 20 88/53 L 96 05/09/20 08:00 05/09/20 08:00 05/09/20 08:00 05/09/20 08:00 05/09/20 08:00 Laboratory Results - last 24 hr 05/08/20 05:50: Total Counted 100, Neutrophils % (Manual) 97 H, Lymphocytes % (Manual) 3 L, Platelet Estimate Normal, RBC Morphology Normal 05/08/20 20:40: Sodium 130 L, Potassium 6.5 H*, Chloride 97 L, Carbon Dioxide 28, Anion Gap 11.5, BUN 88 H, Creatinine 3.70 H, Estimated Creat Clear 12, Estimated GFR 16 L*, Est GFR ( Amer) 19 L*, Glucose 171 H D, Calcium 8.6 05/09/20 06:02: WBC 10.7 D, RBC 3.42 L, Hgb 10.1 L, Hct 32.8 L, MCV 95.9 H, MCH 29.4, MCHC 30.7 L, RDW 18.3 H, Plt Count 137 L, MPV 9.5, Neut % (Auto) 92.1 H, Lymph % (Auto) 3.5 L, [place] % (Auto) 4.2, Eos % (Auto) 0.1, Baso % (Auto) 0.0 L, Neut # (Auto) 9.8 H, Lymph # (Auto) 0.4 L, [place] # (Auto) 0.5, Eos # (Auto) 0.0, Baso # (Auto) 0.0 05/09/20 06:02: Sodium 130 L, Potassium 6.3 H*, Chloride 99, Carbon Dioxide 23, Anion Gap Not Reportable, BUN 91 H, Creatinine 3.50 H, Estimated Creat Clear 16, Estimated GFR 17 L*, Est GFR ( Amer) 21 L, Glucose 143 H, Calcium 8.5, Total Bilirubin 0.7, AST 31, ALT 14, Alkaline Phosphatase 60, Total Protein 5.5 L, Albumin 2.9 L, Globulin 2.6, Albumin/Globulin Ratio 1.1 I & O for Last 24 hours: Intake & Output 05/06/20 05/07/20 05/08/20 05/09/20 11:59 11:59 11:59 11:59 Intake Total 690.538 / 045.981 2503.316 / 4683.316 Output Total 125 / 125 310 / 310 Balance 565.538 / 061.941 7089.316 / 4373.316 Weight 114 lb 10.246 oz 143 lb 8 oz - Constitutional no acute distress, thin Comments: Patient is responsive at times. Is lethargic. - *Routine Respiratory Exam Present: diminished air movement (Posteriorly bilaterally) - *Routine Cardiovascular Exam Present: RRR - *Routine Abdominal Exam Present: soft, normoactive bowel sounds. Absent: tenderness, distended - *Routine Extremities Exam Present: edema (Bilateral legs and arms. Right leg is greater than the left.) - *Routine Skin Exam Present: ecchymosis (Scattered on arms and legs.) - *Routine Neurological Exam Present: altered mental status Lethargic. Assessment and Plan (1) Right heart failure Status: Acute Category: Medical Code(s): I50.810 - Right heart failure, unspecified (2) Hypercapnic respiratory failure Status: Acute Category: Medical Code(s): J96.92 - Respiratory failure, unspecified with hypercapnia (3) Acute renal failure Status: Acute Qualifiers: Acute renal failure type: unspecified Qualified Code(s): N17.9 - Acute kidney failure, unspecified Category: Medical Code(s): N17.9 - Acute kidney failure, unspecified (4) Dehydration Status
[2020-05-09 09:10] LABS: Allen's Test Acceptable; Oxygen 3 LPM NC %; Source Left Radial
[2020-05-09 09:12] LABS: ABG PCO2 54.7 mmhg (35.0-45.0)
--- NOTE | 2020-05-09 09:22 | HMH.PNCARD ---
Subjective Date: 05/09/20 Time: 09:00 Principal diagnosis: dehydration, RHF Interval history: This is a 79-year-old gentleman who was admitted for shortness of breath and weakness/fatigue. The patient was found to be dehydrated but also found to have pulmonary hypertension and right-sided heart failure only. The patient got aggressive fluid resuscitation yesterday because of his dehydration and small left ventricle and hyperdynamic state. The patient is more awake today than he was yesterday but he is still a little difficult to arouse. He does answer all of my questions as long as I keep him awake. He does wake up to drink fluids very well. He denies wanting to eat anything. He denied any chest pain or pressure this morning. He denied any shortness of breath. He denied any pain anywhere. This morning his creatinine remains elevated at 3.5. His potassium remains elevated as well at 6.3 and his sodium is low at 130. He has pulled off the BiPAP and is now on nasal cannula which he is tolerating well and maintaining his sats. He remains on a Levophed drip this morning. He appears to be in no distress and appears quite comfortable this morning. Exam Vital signs and Labs for Last 24 Hours: Temp Pulse Resp BP Pulse Ox 97.5 F L 83 20 88/53 L 96 05/09/20 08:00 05/09/20 08:00 05/09/20 08:00 05/09/20 08:00 05/09/20 08:00 Laboratory Results - last 24 hr 05/08/20 05:50: Total Counted 100, Neutrophils % (Manual) 97 H, Lymphocytes % (Manual) 3 L, Platelet Estimate Normal, RBC Morphology Normal 05/08/20 20:40: Sodium 130 L, Potassium 6.5 H*, Chloride 97 L, Carbon Dioxide 28, Anion Gap 11.5, BUN 88 H, Creatinine 3.70 H, Estimated Creat Clear 12, Estimated GFR 16 L*, Est GFR ( Amer) 19 L*, Glucose 171 H D, Calcium 8.6 05/09/20 06:02: WBC 10.7 D, RBC 3.42 L, Hgb 10.1 L, Hct 32.8 L, MCV 95.9 H, MCH 29.4, MCHC 30.7 L, RDW 18.3 H, Plt Count 137 L, MPV 9.5, Neut % (Auto) 92.1 H, Lymph % (Auto) 3.5 L, [place] % (Auto) 4.2, Eos % (Auto) 0.1, Baso % (Auto) 0.0 L, Neut # (Auto) 9.8 H, Lymph # (Auto) 0.4 L, [place] # (Auto) 0.5, Eos # (Auto) 0.0, Baso # (Auto) 0.0 05/09/20 06:02: Sodium 130 L, Potassium 6.3 H*, Chloride 99, Carbon Dioxide 23, Anion Gap Not Reportable, BUN 91 H, Creatinine 3.50 H, Estimated Creat Clear 16, Estimated GFR 17 L*, Est GFR ( Amer) 21 L, Glucose 143 H, Calcium 8.5, Total Bilirubin 0.7, AST 31, ALT 14, Alkaline Phosphatase 60, Total Protein 5.5 L, Albumin 2.9 L, Globulin 2.6, Albumin/Globulin Ratio 1.1 05/09/20 07:51: Specimen Source Left radial, O2 % 3 lpm nc, ABG pH 7.28 L, ABG pCO2 54.7 H, ABG pO2 98.7, ABG HCO3 25.0, ABG Total CO2 26.6, ABG O2 Saturation 97, ABG Base Excess -1.8, Calos Test Acceptable I & O for Last 24 hours: Intake & Output 05/06/20 05/07/20 05/08/20 05/09/20 23:59 23:59 23:59 23:59 Intake Total 3926.854 / 3926.854 1482.152 / 1482.152 Output Total 375 / 375 60 / 60 Balance 3551.854 / 3551.854 1422.152 / 1422.152 Weight 115 lb 114 lb 10.246 oz 143 lb 8 oz Narrative: Telemetry strip is atrial fibrillation with rate control. Echo shows: 1. Normal left ventricular size, mild concentric left ventricular hypertrophy, visually estimated ejection fraction 55% with no regional wall motion abnormality, diastolic parameters are inconclusive. 2. Markedly enlarged right ventricle with moderate reduction right ventricular contractility. 3. No significant pericardial effusion - Constitutional no acute distress, average body habitus - *Routine HEENT Exam Head: Present: normocephalic, atraumatic Eye: Present: EOMI, PERRL ENT: Present: mucous membranes moist - *Routine Neck Exam Present: supple, full ROM, normal carotid upstroke. Absent: JVD, carotid bruit, lymphadenopathy - *Routine Respiratory Exam Present: decreased breath sounds, rhonchi, wheezes - *Routine Cardiovascular Exam Present: Normal S1, Normal S2, irregularly irregular. Absent: murmur - *Routine Abdominal
[2020-05-09 12:01] LABS: Lymphocytes % 2 % (10-50); Monocytes % 2 % (2-9); Neutrophils % 96 % (42-76); Platelet Estimate Slight Decrease; RBC Morphology Normal; Total Cells Counted 100
--- NOTE | 2020-05-09 17:20 | PC.NURSE ---
PT IS RESTING IN BED WITH FAMILY IN THE ROOM. PT HAS STATED SEVERAL TIMES THIS SHIFT THAT HE WAS DONE WITH THIS AND HE WAS TIRED OF EVERYTHING. PT HAS MULTIPLE AREAS OF BRUISING/ABRASIONS/SKIN TEARS NOTED TO BUE. PICC DRESSING HAS BEEN CHANGED 1X THIS SHIFT DUE TO BLEEDING AROUND INSERTION SITE. BP AT 1715 91/47. LEVOPHED DRIP HAS WENT FROM 16MCG/MIN TO 4MCG/MIN THIS SHIFT. THE LOWEST BP THIS SHIFT WAS 82/34. PT HAS ONLY HAD 150 ML'S UOP THIS SHIFT. LUNG SOUND HAVE CRACKLES T/O. ABDOMEN SOFT/ NON TENDER. 2 + PITTING EDEMA NOTED TO BLE. PT HAS ATE VERY SMALL AMOUNTS THIS SHIFT. TOLERATED A FEW SIPS OF ENSURE. PT HAD A RECTAL TEMP THIS AFTERNOON OF 95.8. WARM BLANKETS APPLIED. AXILLARY TEMP AT 1750 96.4. PT HAD 1 SMALL BOWEL MOVEMENT THIS SHIFT. TOTAL LINEN CHANGE. TURNED AND REPOSITIONED FREQUENTLY. WILL CONTINUE TO MONITOR.
[2020-05-09 18:13] LABS: Microscopic, Urine URINE MICROSCOPIC (MICROSCOPIC)
[2020-05-09 18:15] LABS: Appearance,Urine TURBID (Clear); Blood, Urine 3+ (Negative); Color,Urine AMBER (Yellow); Glucose,Urine (UA) Negative (Negative); Ketones,Urine Negative (Negative); Leukocyte Esterase,Urine 2+ (Negative); Nitrate,Urine POSITIVE (Negative); Protein,Urine 2+ (Negative); Specific Gravity, Urine 1.025 (1.005-1.030); Urobilinogen,Urine 0.2 EU/dl (0.2)
[2020-05-09 18:16] LABS: Bilirubin,Urine Negative (Negative)
[2020-05-09 18:40] LABS: RBC,Urine 20-50 #/hpf (0-3)
[2020-05-10] VITALS (33 sets, daily range): BP systolic 81–129; BP diastolic 45–76; PULSE 70–102; RESP 14–22; TEMP 34.2–36.9; O2SAT 90–99; BMI 21.2
--- NOTE | 2020-05-10 03:43 | PC.NURSE ---
All care and documentation for this patient provided by Tim watson RN, was under the direct supervision of Syed Fisher RN
--- NOTE | 2020-05-10 08:05 | HMH.ACPN2 ---
<Jennie Sanchez - Last Filed: 05/10/20 08:05> Internal Medicine - PN: Subj *Date: 05/10/20 *Time: 08:05 Interval history: Patient states he is doing pretty well and that he slept last night. He is going to try to eat breakfast. He states his breathing is okay and he denies pain. He continues with IV fluids at 100 an hour, Levophed drip to maintain blood pressure, and on antibiotics. Lab data is pending. Patient remains on O2 at 2 L/min with O2 sats at 93%. Exam Vital signs and Labs for Last 24 Hours: Temp Pulse Resp BP Pulse Ox 97.5 F L 80 18 107/63 L 93 L 05/09/20 20:00 05/10/20 06:01 05/10/20 06:00 05/10/20 06:00 05/10/20 06:01 Laboratory Results - last 24 hr 05/09/20 06:02: WBC 10.7 D, RBC 3.42 L, Hgb 10.1 L, Hct 32.8 L, MCV 95.9 H, MCH 29.4, MCHC 30.7 L, RDW 18.3 H, Plt Count 137 L, MPV 9.5, Neut % (Auto) 92.1 H, Lymph % (Auto) 3.5 L, [place] % (Auto) 4.2, Eos % (Auto) 0.1, Baso % (Auto) 0.0 L, Neut # (Auto) 9.8 H, Lymph # (Auto) 0.4 L, [place] # (Auto) 0.5, Eos # (Auto) 0.0, Baso # (Auto) 0.0, Total Counted 100, Neutrophils % (Manual) 96 H, Lymphocytes % (Manual) 2 L, Monocytes % (Manual) 2, Platelet Estimate Slight decrease, RBC Morphology Normal 05/09/20 07:51: Specimen Source Left radial, O2 % 3 lpm nc, ABG pH 7.28 L, ABG pCO2 54.7 H, ABG pO2 98.7, ABG HCO3 25.0, ABG Total CO2 26.6, ABG O2 Saturation 97, ABG Base Excess -1.8, Calos Test Acceptable 05/09/20 18:00: Urine Color Amy, Urine Appearance Turbid, Urine pH 6.0, Ur Specific [place] 1.025, Urine Protein 2+, Urine Glucose (UA) Negative, Urine Ketones Negative, Urine Blood 3+, Urine Nitrate Positive, Urine Bilirubin Negative, Urine Urobilinogen 0.2, Ur Leukocyte Esterase 2+ A, Urine RBC 20-50, Urine WBC 3-5 I & O for Last 24 hours: Intake & Output 05/07/20 05/08/20 05/09/20 05/10/20 11:59 11:59 11:59 11:59 Intake Total 690.538 / 101.340 9908.468 / 4718.468 3844 / 3844 Output Total 125 / 125 310 / 310 150 / 150 Balance 565.538 / 329.715 9151.468 / 4408.468 3694 / 3694 Weight 114 lb 10.246 oz 143 lb 8 oz Microbiology Reports for the Last 24 Hours: Microbiology 05/07/20 15:20 Blood Blood Culture - Preliminary NO GROWTH AFTER 48 HOURS 05/07/20 15:20 Blood Blood Culture - Preliminary NO GROWTH AFTER 48 HOURS - Constitutional no acute distress Comments: Awakens easily and answers questions readily - *Routine Respiratory Exam Present: other Comments: Decreased breath sounds in bases. - *Routine Cardiovascular Exam Present: irregular rhythm (Monitor showing atrial fib with controlled ventricular response) - *Routine Abdominal Exam Present: soft, normoactive bowel sounds. Absent: tenderness, distended - *Routine Extremities Exam Present: edema (Bilateral arms and legs) - *Routine Neurological Exam Present: alert, oriented X3 Assessment and Plan (1) Right heart failure Status: Acute Category: Medical Code(s): I50.810 - Right heart failure, unspecified (2) Hypercapnic respiratory failure Status: Acute Category: Medical Code(s): J96.92 - Respiratory failure, unspecified with hypercapnia (3) Acute renal failure Status: Acute Qualifiers: Acute renal failure type: unspecified Qualified Code(s): N17.9 - Acute kidney failure, unspecified Category: Medical Code(s): N17.9 - Acute kidney failure, unspecified (4) Dehydration Status: Acute Category: Medical Code(s): E86.0 - Dehydration (5) Severe protein-calorie malnutrition Status: Acute Category: Medical Code(s): E43 - Unspecified severe protein-calorie malnutrition (6) Hyperkalemia Status: Acute Category: Medical Code(s): E87.5 - Hyperkalemia (7) Hypotension Status: Acute Qualifiers: Hypotension type: unspecified hypotension type Qualified Code(s): I95.9 - Hypotension, unspecified Category: Medical Code(s): I95.9 - Hypotension, unspecified
[2020-05-10 08:46] LABS: Basophils % 0.2 % (0.1-2.0); Eosinophils % 0.1 % (0.1-12.0); Hematocrit 31.9 % (42.0-52.0); Hemoglobin 9.7 g/dL (14.1-18.0); Lymphocytes # 0.2 K/mm3 (0.7-4.5); Lymphocytes % 2.4 % (10-50); Mean Corpuscular HGB Conc 30.3 g/dL (31.8-35.4); Mean Corpuscular Hemoglobin 30.1 pg (27.0-31.2); Mean Corpuscular Volume 99.5 fl (80-94); Mean Platelet Volume 9.4 fl (7.4-10.4); Monocytes # 0.4 K/mm3 (0.1-1.0); Monocytes % 4.3 % (1.7-9.3); Neutrophils # 7.5 K/mm3 (1.8-7.8); Neutrophils % 92.9 % (37.0-80.0); Platelet Count 104 K/mm3 (142-424); Red Blood Count 3.21 M/mm3 (4.60-6.20); Red Cell Distribution Width 18.7 % (11.5-17.5); White Blood Count 8.1 K/mm3 (4.8-10.8)
[2020-05-10 08:55] LABS: Chloride 102 mmol/L (98-107); Sodium 133 mmol/L (136-145)
[2020-05-10 08:56] LABS: Potassium 5.2 mmoL/L (3.5-5.1)
[2020-05-10 08:58] LABS: Alanine Aminotransferase 14 U/L (12-78); Albumin Level 2.7 g/dl (3.5-5.0); Alkaline Phosphatase 58 U/L (38-126); Anion Gap 9.2 mEq/L (5-15); Aspartate Amino Transferase 22 U/L (17-59); Bilirubin,Direct 0.4 mg/dl (0.0-0.4); Bilirubin,Indirect 0.1 mg/dL (0.0-0.9); Bilirubin,Total 0.5 mg/dl (0.2-1.3); Bilirubin,Unconjugated 0.1 mg/dL (0.0-1.1); Calcium 8.3 mg/dl (8.4-10.2); Carbon Dioxide 27 mmol/L (22.0-30.0); Creatinine Clearance Estimated 15 mL/min (50-200); Estimated Glomerular Filt Rate 16 ml/min (>60); GFR (African American) 19 ML/MIN (>60); Glucose 178 mg/dl (74-100); Total Protein,Serum 5.4 g/dl (6.3-8.2)
[2020-05-10 09:10] LABS: MANUAL DIFFERENTIAL MANUAL DIFFERENTIAL (MANUAL DIFF)
--- NOTE | 2020-05-10 09:14 | HMH.PNCARD ---
Subjective Date: 05/10/20 Time: 09:10 Principal diagnosis: dehydration, RHF Interval history: This is a 79-year-old white gentleman who was admitted to the hospital with shortness of breath and weakness/fatigue. The patient was found to be dehydrated and he did receive significant fluid resuscitation. He has been hypotensive and remains on a Levophed drip. His Levophed drip this morning is at 5 mics and his blood pressure is stable. He did have decreased urine output overnight despite getting IV fluids. We are currently awaiting his lab results this morning. He denies any chest pain or pressure. He denies any shortness of breath or edema. However, on exam he does have edema present in his bilateral lower extremities. He denies any fever, chills, nausea, vomiting, diarrhea, PND or orthopnea. The patient states that he is still trying to drink fluids. He is really not had much to eat or drink at this time. Dr. Mills did speak to his family and his yesterday regarding his CODE STATUS. No decision has been made at this time on whether or not to make him a DO NOT INTUBATE, no compressions and no shocks. We are waiting for his family to come in this morning to see if they have given any thought to what they were would want to do if he were to be in the code situation. We have also stated that it is reasonable to keep him a full code if that is what they desire. Exam Vital signs and Labs for Last 24 Hours: Temp Pulse Resp BP Pulse Ox 97.5 F L 80 18 107/63 L 93 L 05/09/20 20:00 05/10/20 06:01 05/10/20 06:00 05/10/20 06:00 05/10/20 06:01 Laboratory Results - last 24 hr 05/09/20 06:02: Total Counted 100, Neutrophils % (Manual) 96 H, Lymphocytes % (Manual) 2 L, Monocytes % (Manual) 2, Platelet Estimate Slight decrease, RBC Morphology Normal 05/09/20 18:00: Urine Color Amy, Urine Appearance Turbid, Urine pH 6.0, Ur Specific [place] 1.025, Urine Protein 2+, Urine Glucose (UA) Negative, Urine Ketones Negative, Urine Blood 3+, Urine Nitrate Positive, Urine Bilirubin Negative, Urine Urobilinogen 0.2, Ur Leukocyte Esterase 2+ A, Urine RBC 20-50, Urine WBC 3-5 05/10/20 08:20: WBC 8.1, RBC 3.21 L, Hgb 9.7 L, Hct 31.9 L, MCV 99.5 H, MCH 30.1, MCHC 30.3 L, RDW 18.7 H, Plt Count 104 L, MPV 9.4, Neut % (Auto) 92.9 H, Lymph % (Auto) 2.4 L, [place] % (Auto) 4.3, Eos % (Auto) 0.1, Baso % (Auto) 0.2, Neut # (Auto) 7.5, Lymph # (Auto) 0.2 L, [place] # (Auto) 0.4, Eos # (Auto) 0.0, Baso # (Auto) 0.0 I & O for Last 24 hours: Intake & Output 05/07/20 05/08/20 05/09/20 05/10/20 23:59 23:59 23:59 23:59 Intake Total 3926.854 / 3926.854 3589.152 / 3589.152 1737 / 1737 Output Total 375 / 375 210 / 210 Balance 3551.854 / 3551.854 3379.152 / 3379.152 1737 / 1737 Weight 115 lb 114 lb 10.246 oz 143 lb 8 oz 143 lb 5 oz Microbiology Reports for the Last 24 Hours: Microbiology 05/07/20 15:20 Blood Blood Culture - Preliminary NO GROWTH AFTER 48 HOURS 05/07/20 15:20 Blood Blood Culture - Preliminary NO GROWTH AFTER 48 HOURS Narrative: Telemetry strip shows atrial fibrillation with rate control - Constitutional no acute distress, average body habitus - *Routine HEENT Exam Head: Present: normocephalic, atraumatic Eye: Present: EOMI, PERRL ENT: Present: mucous membranes moist - *Routine Neck Exam Present: supple, full ROM, normal carotid upstroke. Absent: JVD, carotid bruit, lymphadenopathy - *Routine Respiratory Exam Present: decreased breath sounds, wheezes - *Routine Cardiovascular Exam Present: Normal S1, Normal S2, irregularly irregular. Absent: murmur - *Routine Abdominal Exam Present: soft, normoactive bowel sounds. Absent: tenderness, distended - *Routine Extremities Exam Present: edema (Bilateral 1+ lower extremity edema), full ROM, pulses intact, normal capillary refill. Absent: cyanosis, clubbing - *Routine Skin Exam Present: warm. Absent: rash
[2020-05-10 09:21] LABS: Blood Urea Nitrogen 86 mg/dl (9-20)
[2020-05-10 10:32] LABS: Free T4 (Free Thyroxine) 0.96 ng/dl (0.78-2.19)
--- NOTE | 2020-05-10 10:44 | PC.NURSE ---
noted bp to decline, increased levophed to 7mcg/min
[2020-05-10 10:47] LABS: Thyroid Stimulating Hormone 2.36 uIU/mL (0.465-4.68)
[2020-05-10 11:30] LABS: Acanthocytes 2+; Lymphocytes % 2 % (10-50); Monocytes % 4 % (2-9); Neutrophils % 92 % (42-76); Platelet Estimate Moderate Decrease; Poikilocytosis 2+; Total Cells Counted 100
--- NOTE | 2020-05-10 11:39 | PC.NURSE ---
0925 reported patient creatnine, bun and rectal temp to [facility]. anju young aprn returned call.
--- NOTE | 2020-05-10 12:25 | HMH.PULMPN ---
Internal Medicine - PN: Subj *Date: 05/10/20 *Time: 12:25 Interval history: Patient clinical status decline since yesterday. Remained on 2.5 L nasal cannula with saturations at 98% Exam - Constitutional Constitutional:: Present: comfortable - HENMT Exam HENMT: Present: normocephalic, atraumatic - Neck Exam Neck:: Present: thyroid normal - Respiratory Exam Respiratory:: Present: able to speak in complete sentences, lungs clear, normal respiratory effort, respiratory distress, decreased breath sounds - Cardiovascular Exam Cardiac:: Present: S1, S2 - GI Exam GI:: Present: soft - Skin Exam Skin: Present: no rash - Neurological Exam Neurological: Present: alert, awake - Extremities Exam Extremities: Present: no cyanosis, no clubbing, extremity cold to touch, edema Assessment and Plan (1) Right heart failure Status: Acute Category: Medical Code(s): I50.810 - Right heart failure, unspecified (2) Hypercapnic respiratory failure Status: Acute Category: Medical Code(s): J96.92 - Respiratory failure, unspecified with hypercapnia (3) Acute renal failure Status: Acute Qualifiers: Acute renal failure type: unspecified Qualified Code(s): N17.9 - Acute kidney failure, unspecified Category: Medical Code(s): N17.9 - Acute kidney failure, unspecified (4) Dehydration Status: Acute Category: Medical Code(s): E86.0 - Dehydration (5) Severe protein-calorie malnutrition Status: Acute Category: Medical Code(s): E43 - Unspecified severe protein-calorie malnutrition (6) Hyperkalemia Status: Acute Category: Medical Code(s): E87.5 - Hyperkalemia (7) Hypotension Status: Acute Qualifiers: Hypotension type: unspecified hypotension type Qualified Code(s): I95.9 - Hypotension, unspecified Category: Medical Code(s): I95.9 - Hypotension, unspecified (8) Chronic atrial fibrillation Status: Chronic Category: Medical Code(s): I48.20 - Chronic atrial fibrillation, unspecified - Assessment and plan all Dx Assessment and Plan for all problems:: #Hypercarabic respiratory failure: #COPD Exacerbation: 75-year-old male with very severe COPD on triple inhaler therapy recently initiated on 4 L oxygen therapy presented with worsening respiratory failure. Patient found to have significantly elevated BNP at 111,000 along with worsening creatinine and hyperkalemia. Chest x-ray from admission showed questionable lower lobe pulmonary infiltrates which are slightly worsening, likely from atelectasis Lower extremity Doppler did not show any evidence of PE Patient had echocardiogram performed that showed normal EF with grade 1 LV diastolic dyspnea however patient showed RV dilation with decreased contractility. Blood cultures no growth 48 hours, urine cultures pending Patient mentation declined from yesterday. Appeared more lethargic. Placed on BiPAP. Blood gas from yesterday showed hypercarbic respiratory failure with normal lactates. Patient continued to be on pressor support. Renal function worsening. Net urine output of less than 100 cc in the last 24 hours. Patient continued to remain afebrile with no evidence of leukocytosis. Bilateral clear decreased breath sounds unchanged from prior. Plan: - DuoNebs every 6 hours scheduled along with budesonide every 12 schedule - F/U ABG - Continue prednisone 40 mg for total of 5 days - Continue Levoflaxacin x 5 days - Consider obtaining urine electrolytes and renal ultrasound to determine the etiology of his renal dysfunction - Volume optimization and right heart failure management as per cardiology and primary team. - JEFFREY and electrolyte management as per primary team. #Rest of the medical management as per primary team. Please call with any questions or concerns. -Thank you for involving pulmonary in this patient care. We will continue to follow.
--- NOTE | 2020-05-10 12:35 | PC.NURSE ---
bp in the 70s about 1220 increased levophed to 10mcg/min, noted bp to remain low after a few cycles of bp so increased to 12mcg/min
--- NOTE | 2020-05-10 13:48 | DIET.NUTRFU ---
Pt doing fair-well nutritionally- 25% PO intakes + BID supplements, weight stable, bowels normal. Family at bedside today, provided diet education for high protein diet/nutritional considerations COPD. Pt with severe protein calorie malnutrition rt COPD with weight loss of 8% body weight past month, 22% body weight past year. Continuing to monitor and provide diet edu/counseling t/o stay.
--- NOTE | 2020-05-10 18:16 | PC.NURSE ---
patient has had an okay day. levophed has been increased to 12mcg/min. heart rate has gone up through out the day. temp originally 93.5 has since come up to 98.3. remains on 2.5 l o2. has had no complaints. dressing on picc changed earlier because of bleeding. arms and legs continue to weep. lots of bruising to arms. turns q2. did eat a little bit and drink a little for family. family have agreed to make patient a dnr. educated family we would continue all care and there would be no changes as far as bipap, or levophed drip. dnr would take effect if patient passed. did have some shallow breathing earlier in shift.
[2020-05-11] VITALS (24 sets, daily range): BP systolic 82–118; BP diastolic 53–71; PULSE 80–98; RESP 14–21; TEMP 34.8–36.8; O2SAT 92–99
--- NOTE | 2020-05-11 04:49 | PC.NURSE ---
Addendum entered by Natacha Hussein RN 05/11/20 06:31: 0400 - SBP consistently over 110, Levo gtt decreased to 10 mcg/min. Addendum entered by Natacha Hussein RN 05/11/20 06:22: *Correction: pt was incontinent of a small soft BM this morning. Coccyx noted to be red, not open, no drainage. Dressing applied for skin protectant/barrier. Original Note: Slept at intervals. Remains on 2 L O2 per nasal cannula. Denies being SOA. Poor air movement noted upon auscultation. Remain in Afib w/ controlled rate. Generalized edema noted. Extremities elevated, as well as scrotum in pillow case sling to elevate. Dressings to extremities changes. Pt continues to weap, chux changed often this shift to help keep pt dry. Pt turned and repositioned Q2H. Oral care provided throughout shift. Abdomen soft, non-tender w/ active BS. No BM this shift. Nino cath to drain @ bedside w/ clear drk yellow urine noted. Nino care provided by staff. Has rested comfortably this shift, denies pain. No needs voiced. Temp has been stable this shift. VSS Bed alarm in place.
[2020-05-11 06:25] LABS: Chloride 104 mmol/L (98-107); Potassium 4.5 mmoL/L (3.5-5.1); Sodium 133 mmol/L (136-145)
[2020-05-11 06:28] LABS: Creatinine Clearance Estimated 16 mL/min (50-200); Estimated Glomerular Filt Rate 18 ml/min (>60); GFR (African American) 21 ML/MIN (>60)
[2020-05-11 06:29] LABS: Anion Gap 8.5 mEq/L (5-15); Calcium 7.9 mg/dl (8.4-10.2); Carbon Dioxide 25 mmol/L (22.0-30.0); Glucose 177 mg/dl (74-100)
[2020-05-11 06:59] LABS: Basophils % 0.1 % (0.1-2.0); Eosinophils % 0.1 % (0.1-12.0); Hematocrit 28.7 % (42.0-52.0); Lymphocytes # 0.4 K/mm3 (0.7-4.5); Lymphocytes % 5.4 % (10-50); Mean Corpuscular HGB Conc 29.8 g/dL (31.8-35.4); Mean Corpuscular Hemoglobin 29.4 pg (27.0-31.2); Mean Corpuscular Volume 98.6 fl (80-94); Mean Platelet Volume 9.1 fl (7.4-10.4); Monocytes # 0.4 K/mm3 (0.1-1.0); Neutrophils # 7.2 K/mm3 (1.8-7.8); Neutrophils % 89.5 % (37.0-80.0); Platelet Count 121 K/mm3 (142-424); Red Blood Count 2.91 M/mm3 (4.60-6.20); Red Cell Distribution Width 18.3 % (11.5-17.5); White Blood Count 8.1 K/mm3 (4.8-10.8)
[2020-05-11 07:01] LABS: MANUAL DIFFERENTIAL MANUAL DIFFERENTIAL (MANUAL DIFF)
[2020-05-11 08:04] LABS: Blood Urea Nitrogen 86 mg/dl (9-20)
--- NOTE | 2020-05-11 08:52 | HMH.ACPN2 ---
<Larisa Hernandez - Last Filed: 05/11/20 08:52> Internal Medicine - PN: Subj *Date: 05/11/20 *Time: 08:52 Interval history: Patient is feeling better this a.m. He is awake and alert. His pressure has improved as has his temperature. He is now off BiPAP. He denies any pain and states he did rest better last night. States he is hungry this morning. Exam Vital signs and Labs for Last 24 Hours: Temp Pulse Resp BP Pulse Ox 97.7 F 89 14 104/65 L 97 05/11/20 06:00 05/11/20 06:46 05/11/20 06:00 05/11/20 06:00 05/11/20 06:46 Laboratory Results - last 24 hr 05/10/20 08:20: WBC 8.1, RBC 3.21 L, Hgb 9.7 L, Hct 31.9 L, MCV 99.5 H, MCH 30.1, MCHC 30.3 L, RDW 18.7 H, Plt Count 104 L, MPV 9.4, Neut % (Auto) 92.9 H, Lymph % (Auto) 2.4 L, [place] % (Auto) 4.3, Eos % (Auto) 0.1, Baso % (Auto) 0.2, Neut # (Auto) 7.5, Lymph # (Auto) 0.2 L, [place] # (Auto) 0.4, Eos # (Auto) 0.0, Baso # (Auto) 0.0, Total Counted 100, Neutrophils % (Manual) 92 H, Band Neutrophils % 2.0, Lymphocytes % (Manual) 2 L, Monocytes % (Manual) 4, Platelet Estimate Moderate decrease, Poikilocytosis 2+, Acanthocytes (Spur) 2+ 05/10/20 08:20: Sodium 133 L, Potassium 5.2 H, Chloride 102, Carbon Dioxide 27, Anion Gap 9.2, BUN 86 H, Creatinine 3.70 H, Estimated Creat Clear 15, Estimated GFR 16 L*, Est GFR ( Amer) 19 L*, Glucose 178 H, Calcium 8.3 L, Total Bilirubin 0.5, Direct Bilirubin 0.4, Conjugated Bilirubin 0.0, Indirect Bilirubin 0.1, Unconjugated Bilirubin 0.1, AST 22 D, ALT 14, Alkaline Phosphatase 58, Total Protein 5.4 L, Albumin 2.7 L 05/10/20 08:20: Free T4 0.96 05/10/20 08:20: TSH 2.36 05/11/20 05:50: WBC 8.1, RBC 2.91 L, Hct 28.7 L, MCV 98.6 H, MCH 29.4, MCHC 29.8 L, RDW 18.3 H, Plt Count 121 L, MPV 9.1, Neut % (Auto) 89.5 H, Lymph % (Auto) 5.4 L, [place] % (Auto) 5.0, Eos % (Auto) 0.1, Baso % (Auto) 0.1, Neut # (Auto) 7.2, Lymph # (Auto) 0.4 L, [place] # (Auto) 0.4, Eos # (Auto) 0.0, Baso # (Auto) 0.0 05/11/20 05:50: Sodium 133 L, Potassium 4.5, Chloride 104, Carbon Dioxide 25, Anion Gap 8.5, BUN 86 H, Creatinine 3.40 H, Estimated Creat Clear 16, Estimated GFR 18 L*, Est GFR ( Amer) 21 L, Glucose 177 H, Calcium 7.9 L I & O for Last 24 hours: Intake & Output 05/08/20 05/09/20 05/10/20 05/11/20 11:59 11:59 11:59 11:59 Intake Total 690.538 / 215.224 1324.468 / 4718.468 3844 / 3844 4923.230 / 4923.230 Output Total 125 / 125 310 / 310 150 / 150 300 / 300 Balance 565.538 / 371.725 2366.468 / 4408.468 3694 / 3694 4623.230 / 4623.230 Weight 114 lb 10.246 oz 143 lb 8 oz 143 lb 5 oz Microbiology Reports for the Last 24 Hours: Microbiology 05/09/20 18:00 Urine,Clean Catch Urine Culture - Preliminary NO GROWTH AFTER 24 HOURS - Constitutional no acute distress - *Routine Respiratory Exam Present: decreased breath sounds, rhonchi, wheezes - *Routine Cardiovascular Exam Present: RRR - *Routine Abdominal Exam Present: soft, normoactive bowel sounds. Absent: tenderness - *Routine Extremities Exam Present: edema (RLE) - *Routine Skin Exam Present: warm. Absent: rash Comments: Ecchymosis of arms and legs with significant weeping of the arms - *Routine Neurological Exam Present: alert, oriented X3 Assessment and Plan (1) Right heart failure Status: Acute Category: Medical Code(s): I50.810 - Right heart failure, unspecified (2) Hypercapnic respiratory failure Status: Acute Category: Medical Code(s): J96.92 - Respiratory failure, unspecified with hypercapnia (3) Acute renal failure Status: Acute Qualifiers: Acute renal failure type: unspecified Qualified Code(s): N17.9 - Acute kidney failure, unspecified Category: Medical Code(s): N17.9 - Acute kidney failure, unspecified (4) Dehydration Status: Acute Category: Medical Code(s): E86.0 - Dehydration (5) Severe protein-calorie malnutrition Status: Acute Category: Medical Code(s): E43 - Unspecified severe prote
[2020-05-11 09:46] LABS: Lymphocytes % 4 % (10-50); Monocytes % 3 % (2-9); Neutrophils % 93 % (42-76); Platelet Estimate Normal; RBC Morphology Normal; Total Cells Counted 100
[2020-05-11 09:47] LABS: Hemoglobin 8.5 g/dL (14.1-18.0)
--- NOTE | 2020-05-11 10:44 | CA_ITS ---
APPROVED REPORT EXAM: Comprehensive 2D, Doppler, and color-flow Echocardiogram Software Quality Manager: Leah Hbobs Ht: 5 ft 9 in Wt: 110lbs BSA: 1.60 BP: 93/59 mmHg Indications: RHF, PHTN, COPD M-Mode Dimensions TAPSE 1.17 (<1.7) Tricuspid Valve TR P. Velocity 372.00 cm/s RAP Estimate 15.00 mmHg RVSP 70.40 mmHg Conclusion 1. Limited echocardiogram was performed. 2. Left atrium is mildly enlarged, left ventricle is normal size, visually estimated ejection fraction 55% with no regional wall motion abnormality. 3. The right ventricle is markedly enlarged with moderately reduced contractility. 4. Mild mitral and tricuspid regurgitation, calculated right ventricular systolic pressure is 65 to 80 mmHg. 5. No significant pericardial effusion noted. Electronically signed by : Prabhu Whitten, 05/11/2020 15:12:11
--- NOTE | 2020-05-11 10:54 | HMH.PNCARD ---
Subjective Date: 05/11/20 Time: 10:30 Principal diagnosis: dehydration, RHF Interval history: This is a 79-year-old gentleman who was admitted to the hospital with shortness of breath and weakness and fatigue. The patient was found to be Dehydrated and he has received significant fluid resuscitation. This morning he still remains on the Levophed drip as well. He is sitting up in bed this morning very alert and attentive. He is able to answer all of my questions and follow all of my commands. He did eat breakfast this morning and states that he has been drinking a lot of fluid. He states that he is feeling much better. He denies any chest pain or pressure. He denies any shortness of breath or difficulty breathing. He denies any fever, chills, nausea, vomiting, diarrhea, PND or orthopnea. The patient does have bilateral lower extremity edema but has no other overt signs of pulmonary edema. Yesterday his did decide to make him a DO NOT INTUBATE, no chest compressions and no electrical shocks. Exam Vital signs and Labs for Last 24 Hours: Temp Pulse Resp BP Pulse Ox 98.2 F 98 H 20 93/59 L 98 05/11/20 08:00 05/11/20 10:00 05/11/20 10:00 05/11/20 10:00 05/11/20 10:00 Laboratory Results - last 24 hr 05/10/20 08:20: Total Counted 100, Neutrophils % (Manual) 92 H, Band Neutrophils % 2.0, Lymphocytes % (Manual) 2 L, Monocytes % (Manual) 4, Platelet Estimate Moderate decrease, Poikilocytosis 2+, Acanthocytes (Spur) 2+ 05/11/20 05:50: WBC 8.1, RBC 2.91 L, Hgb 8.5 L D, Hct 28.7 L, MCV 98.6 H, MCH 29.4, MCHC 29.8 L, RDW 18.3 H, Plt Count 121 L, MPV 9.1, Neut % (Auto) 89.5 H, Lymph % (Auto) 5.4 L, [place] % (Auto) 5.0, Eos % (Auto) 0.1, Baso % (Auto) 0.1, Neut # (Auto) 7.2, Lymph # (Auto) 0.4 L, [place] # (Auto) 0.4, Eos # (Auto) 0.0, Baso # (Auto) 0.0, Total Counted 100, Neutrophils % (Manual) 93 H, Lymphocytes % (Manual) 4 L, Monocytes % (Manual) 3, Platelet Estimate Normal, RBC Morphology Normal 05/11/20 05:50: Sodium 133 L, Potassium 4.5, Chloride 104, Carbon Dioxide 25, Anion Gap 8.5, BUN 86 H, Creatinine 3.40 H, Estimated Creat Clear 16, Estimated GFR 18 L*, Est GFR ( Amer) 21 L, Glucose 177 H, Calcium 7.9 L I & O for Last 24 hours: Intake & Output 05/08/20 05/09/20 05/10/20 05/11/20 23:59 23:59 23:59 23:59 Intake Total 3926.854 / 3926.854 3589.152 / 3589.152 3991.792 / 3991.792 2668.438 / 2668.438 Output Total 375 / 375 210 / 210 100 / 100 200 / 200 Balance 3551.854 / 3551.854 3379.152 / 3379.152 3891.792 / 3891.792 2468.438 / 2468.438 Weight 114 lb 10.246 oz 143 lb 8 oz 143 lb 5 oz Microbiology Reports for the Last 24 Hours: Microbiology 05/09/20 18:00 Urine,Clean Catch Urine Culture - Preliminary NO GROWTH AFTER 24 HOURS Narrative: Telemetry strip shows atrial fibrillation with a rate in the 70s. - Constitutional no acute distress, average body habitus - *Routine HEENT Exam Head: Present: normocephalic. Absent: atraumatic Eye: Present: EOMI, PERRL ENT: Present: mucous membranes moist - *Routine Neck Exam Present: supple, full ROM, normal carotid upstroke. Absent: JVD, carotid bruit, lymphadenopathy - *Routine Respiratory Exam Present: rhonchi, wheezes (Expiratory wheezes noted bilaterally) - *Routine Cardiovascular Exam Present: Normal S1, Normal S2, irregularly irregular. Absent: murmur - *Routine Abdominal Exam Present: soft, normoactive bowel sounds. Absent: tenderness, distended - *Routine Extremities Exam Present: edema (2+ bilateral lower extremity edema), full ROM, pulses intact, normal capillary refill. Absent: cyanosis, clubbing - *Routine Skin Exam Present: dry, warm, scars. Absent: rash - *Routine Neurological Exam Present: alert, oriented X3, CN II-XII intact. Absent: sensory deficit, motor deficit Progress Note: A&P (1) Dehydration Status: Acute (2) Right heart failure Status: Acute (3) Hypercapnic respiratory failure Sta
--- NOTE | 2020-05-11 11:46 | HMH.PULMPN ---
Internal Medicine - PN: Subj *Date: 05/11/20 *Time: 11:46 Interval history: No acute respiratory events overnight. Exam - Constitutional Constitutional:: Present: comfortable - HENMT Exam HENMT: Present: normocephalic, atraumatic - Neck Exam Neck:: Present: thyroid normal - Respiratory Exam Respiratory:: Present: able to speak in complete sentences, bibailar crackels heard. Absent: wheezing - Cardiovascular Exam Cardiac:: Present: S1, S2 - GI Exam GI:: Present: soft - Skin Exam Skin: Present: warm, no rash - Neurological Exam Neurological: Present: alert, awake - Extremities Exam Extremities: Present: no cyanosis, no clubbing, edema Assessment and Plan (1) Dehydration Status: Acute Category: Medical Code(s): E86.0 - Dehydration (2) Right heart failure Status: Acute Category: Medical Code(s): I50.810 - Right heart failure, unspecified (3) Hypercapnic respiratory failure Status: Acute Category: Medical Code(s): J96.92 - Respiratory failure, unspecified with hypercapnia (4) Acute renal failure Status: Acute Qualifiers: Acute renal failure type: unspecified Qualified Code(s): N17.9 - Acute kidney failure, unspecified Category: Medical Code(s): N17.9 - Acute kidney failure, unspecified (5) Severe protein-calorie malnutrition Status: Acute Category: Medical Code(s): E43 - Unspecified severe protein-calorie malnutrition (6) Hypotension Status: Acute Qualifiers: Hypotension type: unspecified hypotension type Qualified Code(s): I95.9 - Hypotension, unspecified Category: Medical Code(s): I95.9 - Hypotension, unspecified (7) Chronic atrial fibrillation Status: Chronic Category: Medical Code(s): I48.20 - Chronic atrial fibrillation, unspecified - Assessment and plan all Dx Assessment and Plan for all problems:: #Hypercarabic respiratory failure: #COPD Exacerbation: 75-year-old male with very severe COPD on triple inhaler therapy recently initiated on 4 L oxygen therapy presented with worsening respiratory failure. Patient found to have significantly elevated BNP at 111,000 along with worsening creatinine and hyperkalemia on admission. Chest x-ray from admission showed questionable lower lobe pulmonary infiltrates which are slightly worsening, likely from atelectasis Lower extremity Doppler did not show any evidence of PE Patient had echocardiogram performed that showed normal EF with grade 1 LV diastolic dyspnea however patient showed RV dilation with decreased contractility. Blood cultures and urine cultures no growth Patient's current active pulmonary pathology include COPD exacerbation and possible community-acquired pneumonia for which he has been treated with nebulizers and levofloxacin. Patient also found to be in cardiogenic shock on this admission that relatively improved along with improvement in his mentation and pressor requirements. Cardiology is following. Patient Cr plateaued with no worsening since yesterday and urine output improving. We will closely monitor. Plan: - Closely monitor patient's volume status as patient has been net +2 to 3 L for the last 3 days and does not appear to be volume depleted anymore on today's examination. - Continue NE qith MAP goal >65 -Continue oxygen supplementation via nasal cannula with O2 saturation goal of 88 to 92%, wean as tolerated. This morning on 2 L nasal cannula saturating 96%. - DuoNebs every 6 hours scheduled along with budesonide every 12 schedule - Continue prednisone 40 mg for total of 5 days - Continue Levoflaxacin x 5 days - Aspiration precuations - Consider obtaining urine electrolytes and renal ultrasound to determine the etiology of his renal dysfunction - Volume optimization and right heart failure management as per cardiology and primary team. - JEFFREY and electrolyte management as per primary team. #Rest of the medical management as per primary team. Please call with any
--- NOTE | 2020-05-11 12:08 | PC.NURSE ---
Addendum entered by Lori Medina RN 05/11/20 12:08: gtt currently at 6mcg Original Note: per dr acharya pt MAP goal of 55. dr. acharya wants pt weaned off levophed gtt.
--- NOTE | 2020-05-11 17:26 | PC.NURSE ---
levophed gtt decreased to 1mcg at this time.
--- NOTE | 2020-05-11 18:14 | PC.NURSE ---
pt had a good day. pt turned q2hr and provided oral care. PICC dressing changed using sterile technique d/t being saturated. currently levophed gtt is off with a bp of 117/61. pt has no c/o pain, sob, n/v. fermin in place. will cont. to monitor.
--- NOTE | 2020-05-11 18:52 | PC.NURSE ---
pt currently on rishi paws d/t rectal temp being 94.6
--- NOTE | 2020-05-11 23:52 | PC.NURSE ---
2100 COURTESY ROUND PT AWAKE . TRASH AND LINENS EMPTIED
[2020-05-12] VITALS: BP 93/56; PULSE 81; PULSE 97; RESP 14; TEMP 35.7; O2SAT 96
--- NOTE | 2020-05-12 00:48 | P.DN_ITS ---
Pronouncement Note - Date and Time of Date of : 05/12/20 Time of : 00:30 - PCOD Preliminary cause of : Acute respiratory failure - Additional Data Confirmation of : no pulse, no respirations, no heart sounds, pupils fixed and dilated Family: contacted Attending/PCP notified?: Yes Attending physician: Darren Vega MD Was code activated?: No Autopsy requested?: No can line examiner notified?: No Organ bank notified?: Yes Advance directives: Yes
--- NOTE | 2020-05-12 01:03 | PC.NURSE ---
0000 - Staff at bedside turning pt and checking rectal temp, 96.3. Pt awake and able to answer questions appropriately. Pt reports being comfortable @ this time. 0010 - Pt desat to 80's instantly and then to 70's. Placed on non-rebreather w/ no improvement. Pt vomited and was immediately suctioned, protein shake like emesis noted. BP taken manually, SBP 40's. Pt now unresponsive. Skin color has changed from pink to puckett. Resp agonal w/ weak pulse. tipple supervisor @ bedside calling family to notify of change of status in pt. Dr. Lloyd Paged. No palpable pulse. No visible resp. Dr. Lloyd. Dr. Lloyd called back and was notified of pt passing. ER MD notified of need for pronouncing on floor. Dr. Hayden @ bedside pronouncing TOD 05/12/20 @ 0030. FERNANDA contacted @ 0045. Spoke w/ Carolyn Mihai, Case# [id number]. R/o for donation. to bedside @ 0050. Per 's request Shayan Moon, family's preacher was contacted for bedside services. 0115 - Daughter currently @ bedside as well. No needs voiced @ this time. Tissues and drinks mad available for family 0130 - Shayan Moon @ bedside.
--- NOTE | 2020-05-12 01:23 | PC.NURSE ---
0110 had requested staff to call Shayan Moon.He returned call at this time
--- NOTE | 2020-05-12 04:18 | PC.NURSE ---
Family left floor @ 0350. Post mortem care performed per protocol. 2166 - [facility] contacted per pt's family request for services.
[2020-05-12 17:55] LABS: Sodium, Urine <20 mmol/L (Not Estab.)
[2020-05-13 04:20] LABS: Osmolality, Urine 340 mOsmol/kg (.)
--- NOTE | 2020-05-13 11:23 | [facility].DCSUM ---
General - General Admission date:: 05/07/20 <Darren Vega - 05/23/20 14:52> 05/07/20 <MaryLarisa - 05/13/20 11:45> Discharge date: 05/08/20 <MaryLarisa - 05/13/20 11:45> HPI HPI: Mr. Vaz is a 79-year-old male with a history of Hypertension, COPD, anxiety disorder,And CVA who was brought to [facility] emergency room for evaluation due to progressive weakness and shortness of breath. Patient is very dyspneic this morning and unable to speak. Per notes family stated he had not been eating and drinking much at all. He was sleeping a lot. He seemed to be more short of breath the last couple of days. He did see Dr. Caro last week and was started on home oxygen and neb treatments. 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 Albert in [place] and he had a diuretic stopped because his blood pressure was too low. His did start him back on the diuretic about 1 week ago due to swelling in his legs. He is noted to have chronic edema of the legs. Also to note patient was hospitalized 02/17 through 02/21/2020 for acute kidney injury, dehydration, UTI, and COPD, also noted were a low BMI. With evaluation in the emergency room CBC showed a white blood cell count of 6000 with a hemoglobin of 10.3 and hematocrit of 33.5. Blood gases showed a pH of 7.22 PCO2 of 74.1 but PO2 of 130.1 and a bicarb of 29.5. Blood chemistries showed a sodium of 131 potassium is 6.7 chloride 92 and CO2 33. BUN was 87 and creatinine was 3.7. Lactate was 0.9. Liver function studies were not elevated. BNP was 11,100. Covid IgG and IgM were negative.Chest x-ray revealed COPD and hyperexpansion. With no prominent findings. Possible slight streaky bandlike area density extending from the right hilum towards the right lung base possibly reflecting atelectasis but could not exclude early strictly infiltrate. At the time of this exam patient is in respiratory distress. He cannot speak due to shortness of breath. Respiratory rate is about 40. O2 sats have increased to 90 with increase of his oxygen to 4 L/min. Repeat ABGs continue to show respiratory acidosis and he has been placed on BiPAP. He has received morphine IV which is helped to calm him down. He does want the BiPAP off but nursing is working with him on one-to-one basis. Blood pressure remains low and he remains on a norepinephrine drip. He has had Nino catheter inserted to bedside drainage. Pulmonology to see patient this a.m. <Larisa Hernandez - 05/13/20 11:45> Hospital Course Hospital Course: The patient was placed on duo nebs and was given Solu-Medrol. He was on a norepinephrine drip for his hypotension and was receiving IV fluids at 150 mL an hour. Kayexalate was ordered for his hyperkalemia and pulmonology was consulted. His renal function was elevated and as recently as February they were normal. He had an echo in February 2020 showing a relatively normal ejection fraction of 50%. His BNP on admission was elevated at 11,100. His renal functions did not improve much with hydration. A repeat echo was ordered as was a repeat chest x-ray. The repeat x-ray did not show any increased pulmonary vascular congestion. Clinically he seemed dehydrated based on his elevated renal function, hypotension, and decreased urinary output. He was therefore continued on IV fluids and Levophed. He was also continued on BiPAP. His Xarelto was discontinued and he was switched to Lovenox due to his renal insufficiency. Cardiology was also consulted. His repeat echo showed an EF of 55% and he had a markedly enlarged right ventricle with moderate reduction in right ventricular contractility. Pulmonology saw the patient and recommended duo nebs and de-escalating his methylprednisolone to prednisone 40 mg for 5 days. He was also started on Levaquin for total of 5 days. He ordered a Doppler due to his lower extremity edema and felt a cardiology consult was appropriate. His venous
== END 2020-05-12 05:17 | disposition expired | DRG 189 ==
LOC: ER 17:46 → 2ND 05-08 05:54
PROVIDERS: Internal Medicine; Nurse Practitioner Family; Admitting Provider Family Medicine; Emergency Provider Emergency Medicine; PCP Family Medicine; Visit Provider Family Medicine
DX: J96.22 Acute and chronic respiratory failure with hypercapnia (principal); E43 Unspecified severe protein-calorie malnutrition; J18.9 Pneumonia, unspecified organism; I48.20 Chronic atrial fibrillation, unspecified; J96.21 Acute and chronic respiratory failure with hypoxia; I50.810 Right heart failure, unspecified; Z68.21 Body mass index [BMI] 21.0-21.9, adult; J44.9 Chronic obstructive pulmonary disease, unspecified; Z99.81 Dependence on supplemental oxygen; E86.0 Dehydration; Z88.0 Allergy status to penicillin; Z88.1 Allergy status to other antibiotic agents; Z88.8 Allergy status to other drugs, medicaments and biological substances; Z79.51 Long term (current) use of inhaled steroids; Z79.01 Long term (current) use of anticoagulants; E87.5 Hyperkalemia; I11.0 Hypertensive heart disease with heart failure
CPT/HCPCS: 36415; 36569; 71045; 80048; 80053; 80076; 81001; 82803; 82962; 83605; 83880; 83935; 84300; 84439; 84443; 84484; 85007; 85025; 86328; 87040; 87086; 87581; 87633; 87798; 93005; 93306; 93308; 93970; 94640; 94660; 94761; 96365; 96375; 99285; C1751; J1956